=== PATIENT | female | born 1955 | race Caucasian/White ===

== ENCOUNTER 2016-07-25 18:57 | Emergency (ER) | payer MEDICARE ==
[~2016-07-25] VITALS: Ht 160 cm; Wt 95.3 kg
[~2016-07-25 18:57] MED LIST: ATARAX25 MG PO; CIPROFLOXACIN500 MG PO; HYDRALAZINE HCL25 MG PO; KEFLEX500 MG PO; MACROBID100 M1 PO; METOPROLOL SR25 MG PO; RENAL MULTIVITA1 TAB PO; SIMVASTATIN10 MG PO
[2016-07-25] MEDS ORDERED: METOPROLOL TART50 M1 PO (19:36)
[2016-07-25] MEDS ORDERED: PANTOPRAZOLE SO40 MG PO (19:37)
[2016-07-25] MEDS ORDERED: CLONAZEPAM0.5 M2 PO (19:37)
[2016-07-25] MEDS ORDERED: TRAMADOL HCL50 MG PO (19:37)
[2016-07-25] MEDS ORDERED: BUMETANIDE2 MG PO (19:37)
[2016-07-25] MEDS ORDERED: REQUIP0.5 MG PO (19:38)
[2016-07-25] MEDS ORDERED: EFFIENT10 M1 PO (19:38)
[2016-07-25] MEDS ORDERED: ONDANSETRON HYDR4 MG PO (19:39)
[2016-07-25] MEDS ORDERED: SENSIPAR90 MG PO (19:39)
[2016-07-25] MEDS ORDERED: RENVELA800 MG PO (19:39)
[2016-07-25] MEDS ORDERED: PROAIR HFA8.5 GM INH (19:40)
[2016-07-25] MEDS ORDERED: ENALAPRIL MALEA20 MG PO (19:40)
[2016-07-25] MEDS ORDERED: RENAL CAPS1 SGL PO (19:40)
[2016-07-25] MEDS ORDERED: ASPIRIN81 MG PO (19:42)
[2016-07-25] MEDS ORDERED: MAGOX 400400 MG PO (19:43)
[2016-07-25] MEDS ORDERED: CLARITIN10 MG PO (19:43)
[2016-07-25] MEDS ORDERED: MIRALAX17 GM/DOSE PO (19:44)
[2016-07-25] MEDS ORDERED: STOOL SOFTENER100 M3 PO (19:44)
[2016-07-25] MEDS ORDERED: CEPHALEXIN500 M1 PO (20:09)
[2016-07-25] MEDS ORDERED: HYDROCODONE BIT1 T11 PO (20:09)
== END 2016-07-25 20:15 | disposition home or self-care (01) ==
LOC: ED 18:57
DX: L02.212 Cutaneous abscess of back [any part, except buttock and flank] (principal); Z79.82 Long term (current) use of aspirin; Z79.899 Other long term (current) drug therapy; Z91.040 Latex allergy status

== ENCOUNTER 2016-08-14 22:13 | Inpatient (IN) | payer MEDICARE, MEDICAID ==
[~2016-08-14] VITALS: Ht 160 cm; Wt 97.7 kg
--- NOTE | ~2016-08-14 | CON ---
[place], [place] REPORT OF CONSULTATION NAME: [facility] UNIT #: [id number] ROOM: 520 DOCTOR: JUNITO GRIGSBYALLITASTEVE BIRTHDATE: [birth year] DOS: 08/15/2016 REQUESTING PHYSICIAN: Dr. Saldana. REASON FOR CONSULTATION: Chest pain, acute non-STEMI. ASSESSMENT: 1. Current presentation with chest pain, sharp, substernal, going on for the past few weeks. 2. Significant episode rated 10/10 brought the patient into the Emergency Room. 3. Pain is worse with lying flat and improves with bending, with leaning forward, no relation to activity. 4. Elevated cardiac enzymes, but normal CPK and MB. 5. Coronary artery disease, status post PTCA and stent placement this March with Dr. Yanes; no details available to me. 6. Obesity with high probability of obstructive sleep apnea. 7. Hypertension. 8. Hyperlipidemia. 9. End-stage renal disease, on dialysis. 10. Previous history of tobacco abuse. PLAN: 1. Continue to cycle cardiac enzymes including CPK-MB and troponin. 2. Stat echocardiogram for LV function and wall motion abnormalities. 3. Check sed rate and CRP. 4. Stop heparin drip. 5. Initiate Celebrex 200 mg 1 tablet p.o. b.i.d. 6. We will plan to do a stress test hopefully on Friday should the patient continue to be symptom free and no hemodynamic compromise. 7. Early followup in clinic here in [place] within 1-2 weeks as an outpatient upon discharge. HISTORY OF PRESENT ILLNESS: The patient is a pleasant 60-year-old female unknown to our practice, presented to the Emergency Room with complaint of severe sharp chest pain, substernal, that occurred at rest, reached 10/10. The pain is without any significant radiation. Does get worse with lying flat and improves with bending forward and leaning on a couple of pillows. Also, the patient noticed like this pain has no relation to activity. It occurs mainly when the patient goes to bed. There has been progression of these complaints over the past few weeks. Never had any symptomatic palpitation or associated dizziness, lightheadedness, or near syncope. The patient underwent a cardiac catheterization with stent placement with Dr. Yanes in March with cardiac complaint that was completely different than what she had now. No fever, no chills, no night sweats. Occasional nausea, but no vomiting. The patient maintained good appetite and no significant weight change. No PND, orthopnea or pedal edema. The patient had been on schedule for her hemodialysis. PAST MEDICAL HISTORY: As detailed in my assessment. SOCIAL HISTORY: The patient denies any current tobacco, alcohol or illicit drug [place], [place] REPORT OF CONSULTATION NAME: [facility] UNIT #: [id number] ROOM: [facility] DOCTOR: EUGENE WILD MD BIRTHDATE: [birth year] abuse. The patient quit smoking 7 years ago. FAMILY HISTORY: The patient's father at age 78 of chronic renal failure. Her mother at age 75 of cancer. She has one brother and two sisters with no early family history of heart disease. CURRENT MEDICATIONS: Requip, vitamin B, Toradol, Zocor, Effient, Lopressor, mag oxide, Claritin, lisinopril, Colace, Klonopin, Bumex, aspirin, Renagel, Protonix, MiraLax, Zofran, Restoril, magnesium, [place]. ALLERGIES: THE PATIENT IS ALLERGIC TO LATEX AND TAPE. REVIEW OF SYSTEMS: Currently, the patient denies any headache, diplopia or blurry vision. No fever, no chills, no night sweats. No abdominal pain, no bright red blood per rectum or tarry stools. The patient admits to joint pain, but no muscular pain. No anxiety, but depression. No polyuria, no polydipsia, no skin rash. Review of all other systems has been negative. PHYSICAL EXAMINATION: GENERAL: The patient is alert and oriented x 3, cooperative, pleasant. VITAL SIGNS: Blood pressure 117/50, heart rate 69, respiratory rate of 14, temperature 97.8. HEENT: Extraocular muscles intact. Pupils equal, round, reactive to light. Conjunctivae, no pallor. Throat, no petechiae. NECK: Good upstroke. Unable to appreciate any bruit. No lymphadenopathy, no thyromegaly. HEART: S1, S2, distant heart sounds. Unable to appreciate any rub, no retrosternal heave. CHEST AND BACK: No deformities. LUNGS: Clear to auscultation. Good air movement. No wheezing, rales. ABDOMEN: Morbidly obese, soft, nontender. Present bowel sounds. No masses, no bruits. EXTREMITIES: Lower extremities, no edema with faint distal pulses. NEUROLOGIC: Grossly nonfocal. SKIN: No significant rash. LABORATORY DATA: White count 5.1, hemoglobin 10.4. Initial troponin 1.2, subsequent is 0.9, subsequent 0.7, then 0.56, then 0.51. [place], [place] REPORT OF CONSULTATION NAME: [facility] UNIT #: [id number] ROOM: [facility] DOCTOR: EUGENE WILD MD BIRTHDATE: [birth year] EUGENE WILD MD CM:CONSTR:REPORT OF CONSULTATION 1259 08/15/16 [id number] interface
--- NOTE | ~2016-08-14 | PR ---
[place], [place] PROGRESS NOTE NAME: [facility] UNIT #: [id number] ROOM: 520 DOCTOR: EUGENE WILD MD BIRTHDATE: [birth year] DOS: 08/16/2016 SUBJECTIVE: Ms. Heart is sitting up in bed, does not appear in distress. Denies any specific cardiac complaint. No symptomatic palpitation. She continued to be slightly short of breath with any minimal movement. OBJECTIVE: VITAL SIGNS: Blood pressure 104/56, heart rate 65, respiratory rate of 14, temperature 97.7. NECK: Good upstroke. No bruit. HEART: S1, S2 with holosystolic murmur at the left sternal border. CHEST AND BACK: No deformities. LUNGS: Clear to auscultation. No wheezing, no rales. ABDOMEN: Obese with no gross evidence of masses, present bowel sounds. EXTREMITIES: Lower extremities, mild ankle edema. LABORATORY DATA: White count 5.1, hemoglobin 10.4. Potassium 5.6, BUN 66, creatinine 11. CK is 94 and MB is 3.9, repeat 97 with MB of 3.3. Troponin 1.3 and repeat is 1.2 that appears to be increasing. ASSESSMENT AND PLAN: Presentation with complaint of chest pain that is quite classic, described as an elephant sitting on patient's chest, even though cardiac enzymes showed elevated troponin, but the CK-MB were not convincing as an ischemic event. Our workup most likely initiated toward acute pericarditis ____ sed rate and CRP were elevated. The patient's echocardiogram showed severe mitral regurgitation, which could be due to an ischemic event. For that, the patient was transferred to [facility] ____ [place] for cardiac catheterization. The patient missed her dialysis yesterday and she will probably need to ____ dialyzed today and this will be conveyed to this radiographer cardiac catheterization. Cardiac catheterization procedure was detailed to the patient with risks, benefits and alternatives. The patient agrees and willing to proceed. EUGENE WILD MD CM:PNTRANS 6 10 EUGENE WILD MD 08/16/[id number] interface
[2016-08-14 22:13] VITALS: BP 154/98
[~2016-08-14 22:13] MED LIST changes: +ASPIRIN81 MG PO; +BUMETANIDE2 MG PO; +CEPHALEXIN500 M1 PO; +CLARITIN10 MG PO; +CLONAZEPAM0.5 M2 PO; +EFFIENT10 M1 PO; +ENALAPRIL MALEA20 MG PO; +HYDROCODONE BIT1 T11 PO; +MAGOX 400400 MG PO; +METOPROLOL TART50 M1 PO; +MIRALAX17 GM/DOSE PO; +ONDANSETRON HYDR4 MG PO; +PANTOPRAZOLE SO40 MG PO; +PROAIR HFA8.5 GM INH; +RENAL CAPS1 SGL PO; +RENVELA800 MG PO; +REQUIP0.5 MG PO; +SENSIPAR90 MG PO; +STOOL SOFTENER100 M3 PO; +TRAMADOL HCL50 MG PO
[2016-08-14 22:40] VITALS: BP 134/76
[2016-08-14 22:42] LABS: BASO % 0.8 % (0.0-1.0); EOS # 0.2 10*3/uL (0.0-0.4); EOS % 4.4 % (1.0-4.0); HEMATOCRIT 34.6 % (37.0-47.0); HEMOGLOBIN 10.8 g/dl (12.0-16.0); LYMPH # 1.6 10*3/uL (1.3-4.4); LYMPH % 30.8 % (27.0-41.0); MEAN CELL VOLUME 107.8 fl (81.0-99.0); MEAN CORPUSCULAR HGB 33.6 pg (27.0-31.0); MEAN CORPUSCULAR HGB CONC 31.2 g/dl (33.0-37.0); MEAN PLATELET VOLUME 10.4 fl (9.6-12.3); MONO # 0.5 10*3/uL (0.1-1.0); MONO % 9.1 % (3.0-9.0); NEUT # 2.8 10*3/uL (2.3-7.9); NEUT % 54.7 % (47.0-73.0); PLATELET COUNT AUTOMATED 236 10*3/uL (130-400); RED BLOOD COUNT 3.21 10*6/uL (4.10-5.10); RED CELL DISTRI WIDTH 14.3 % (0-14.5); WHITE BLOOD COUNT 5.2 10*3/uL (4.8-10.8)
[2016-08-14 22:52] LABS: PROTHROMBIN TIME 10.7 SECONDS (9.0-12.4)
[2016-08-14 23:00] LABS: ALBUMIN 3.7 gm/dl (3.1-4.5); BILIRUBIN, TOTAL 0.3 mg/dl (0.2-1.0); MAGNESIUM 2.1 mg/dL (1.5-2.1); POTASSIUM 4.4 mmol/L (3.5-5.1); TOTAL PROTEIN 7.7 gm/dL (6.4-8.2)
[2016-08-14 23:04] LABS: TROPONIN I 0.516 ng/ml (<0.045)
[2016-08-14 23:22] VITALS: BP 132/58
[2016-08-14 23:46] VITALS: BP 124/50
[2016-08-15] VITALS (10 sets, daily range): BP systolic 90–140; BP diastolic 30–88
[2016-08-15 01:51] LABS: CKMB 1.5 ng/ml (0.5-3.6)
[2016-08-15 04:46] LABS: BASO % 0.4 % (0.0-1.0); EOS # 0.3 10*3/uL (0.0-0.4); EOS % 4.9 % (1.0-4.0); HEMOGLOBIN 10.4 g/dl (12.0-16.0); LYMPH # 1.9 10*3/uL (1.3-4.4); LYMPH % 37.6 % (27.0-41.0); MEAN CELL VOLUME 107.8 fl (81.0-99.0); MEAN CORPUSCULAR HGB CONC 31.5 g/dl (33.0-37.0); MEAN PLATELET VOLUME 9.8 fl (9.6-12.3); MONO # 0.4 10*3/uL (0.1-1.0); MONO % 8.6 % (3.0-9.0); NEUT # 2.5 10*3/uL (2.3-7.9); NEUT % 48.3 % (47.0-73.0); PLATELET COUNT AUTOMATED 202 10*3/uL (130-400); RED BLOOD COUNT 3.06 10*6/uL (4.10-5.10); WHITE BLOOD COUNT 5.1 10*3/uL (4.8-10.8)
[2016-08-15 04:56] LABS: PROTHROMBIN TIME 10.7 SECONDS (9.0-12.4)
[2016-08-15 05:00] LABS: CKMB 2.3 ng/ml (0.5-3.6)
[2016-08-15 05:02] LABS: HEMOGLOBIN A1c 5.2 % (4.8-5.6)
[2016-08-15 05:16] LABS: ALBUMIN 3.5 gm/dl (3.1-4.5); FREE T4 0.91 ng/dl (0.76-1.46); MAGNESIUM 2.3 mg/dL (1.5-2.1); PHOSPHOROUS 6.5 mg/dL (2.5-4.9); POTASSIUM 4.9 mmol/L (3.5-5.1); TOTAL PROTEIN 7.1 gm/dL (6.4-8.2)
[2016-08-15 05:20] LABS: BILIRUBIN, TOTAL 0.3 mg/dl (0.2-1.0); THYROID STIM HORMONE (HS) 1.59 uIU/ml (0.358-4.75)
[2016-08-15 07:04] LABS: VITAMIN D, 25-HYDROXY 30.1 ng/mL (30-100)
[2016-08-15 07:06] LABS: FOLIC ACID > 24.00 ng/mL (>5.38)
[2016-08-15 12:19] LABS: CKMB 3.3 ng/ml (0.5-3.6)
[2016-08-15 12:20] LABS: TROPONIN I 1.27 ng/ml (<0.045)
[2016-08-15 18:34] LABS: CKMB 3.9 ng/ml (0.5-3.6)
[2016-08-15 18:38] LABS: TROPONIN I 1.31 ng/ml (<0.045)
[2016-08-16] VITALS: BP 108/68
[2016-08-16 04:00] VITALS: BP 104/56
[2016-08-16 06:51] LABS: POTASSIUM 5.6 mmol/L (3.5-5.1)
[2016-08-16 08:00] VITALS: BP 148/52
== END 2016-08-16 07:35 | DRG 280 ==
LOC: ED 22:13 → EDHOLD 23:21 → 5E 23:21
PROVIDERS: Family Medicine; Internal Medicine; Internal Medicine Cardiovascular Disease; Student in an Organized Health Care Education/Training Program
DX: I21.4 Non-ST elevation (NSTEMI) myocardial infarction (principal); N18.6 End stage renal disease; I13.2 Hypertensive heart and chronic kidney disease with heart failure and with stage 5 chronic kidney disease, or end stage renal disease; D53.9 Nutritional anemia, unspecified; R73.9 Hyperglycemia, unspecified; I25.118 Atherosclerotic heart disease of native coronary artery with other forms of angina pectoris; E78.5 Hyperlipidemia, unspecified; G25.81 Restless legs syndrome; E66.01 Morbid (severe) obesity due to excess calories; I50.9 Heart failure, unspecified; I34.0 Nonrheumatic mitral (valve) insufficiency; Z99.2 Dependence on renal dialysis; Z68.31 Body mass index [BMI] 31.0-31.9, adult; Z95.818 Presence of other cardiac implants and grafts; Z98.51 Tubal ligation status; Z87.891 Personal history of nicotine dependence; Z84.1 Family history of disorders of kidney and ureter; Z80.9 Family history of malignant neoplasm, unspecified; Z91.040 Latex allergy status; Z91.048 Other nonmedicinal substance allergy status; Z79.82 Long term (current) use of aspirin; Z79.899 Other long term (current) drug therapy

== ENCOUNTER → 2016-10-03 | Outpatient (CLI) | payer MEDICARE, MEDICAID | END | disposition home or self-care (01) | LOC: RAD 11:03 | DX: J18.9 Pneumonia, unspecified organism (principal); I10 Essential (primary) hypertension; I51.7 Cardiomegaly; Z95.1 Presence of aortocoronary bypass graft; Z87.891 Personal history of nicotine dependence ==

== ENCOUNTER 2017-03-20 09:21 | Inpatient (IN) | payer MEDICARE, MEDICAID ==
[~2017-03-20] VITALS: Ht 160 cm; Wt 98.1 kg
[2017-03-20] VITALS (17 sets, daily range): BP systolic 95–132; BP diastolic 30–73
[~2017-03-20 09:21] MED LIST changes: +MAG-OXIDE200 MG PO; -MAGOX 400400 MG PO; -SIMVASTATIN10 MG PO; +ZOCOR20 MG PO
[2017-03-20 09:37] LABS: BASO % 0.4 % (0.0-1.0); EOS # 0.2 10*3/uL (0.0-0.4); EOS % 2.7 % (1.0-4.0); HEMATOCRIT 36.5 % (37.0-47.0); HEMOGLOBIN 11.6 g/dl (12.0-16.0); LYMPH % 18.9 % (27.0-41.0); MEAN CELL VOLUME 104.3 fl (81.0-99.0); MEAN CORPUSCULAR HGB 33.1 pg (27.0-31.0); MEAN CORPUSCULAR HGB CONC 31.8 g/dl (33.0-37.0); MEAN PLATELET VOLUME 9.6 fl (9.6-12.3); MONO # 0.3 10*3/uL (0.1-1.0); MONO % 5.3 % (3.0-9.0); NEUT % 72.3 % (47.0-73.0); PLATELET COUNT AUTOMATED 219 10*3/uL (130-400); WHITE BLOOD COUNT 5.5 10*3/uL (4.8-10.8)
[2017-03-20 10:06] LABS: ACT PARTIAL THROMBO TIME 23.9 SECONDS (20.8-31.5); INTERNATIONAL NORM RATIO 0.9 (2.0-3.5)
[2017-03-20 10:11] LABS: ALBUMIN 3.4 gm/dl (3.1-4.5); CREATININE 5.88 mg/dL (0.55-1.02); POTASSIUM 3.6 mmol/L (3.5-5.1); TOTAL PROTEIN 7.8 gm/dL (6.4-8.2)
[2017-03-20 10:15] LABS: TROPONIN I 0.668 ng/ml (<0.045)
[2017-03-20] MEDS ORDERED: PROTONIX40 MG PO (10:46)
[2017-03-20] MEDS ORDERED: TOPROL XL25 MG PO (11:36)
[2017-03-21] VITALS: BP 102/60
[2017-03-21 03:33] LABS: BASO % 0.5 % (0.0-1.0); EOS # 0.2 10*3/uL (0.0-0.4); EOS % 3.4 % (1.0-4.0); HEMOGLOBIN 9.7 g/dl (12.0-16.0); LYMPH # 1.5 10*3/uL (1.3-4.4); LYMPH % 26.3 % (27.0-41.0); MEAN CELL VOLUME 105.3 fl (81.0-99.0); MEAN CORPUSCULAR HGB CONC 32.3 g/dl (33.0-37.0); MEAN PLATELET VOLUME 9.7 fl (9.6-12.3); MONO # 0.4 10*3/uL (0.1-1.0); MONO % 7.6 % (3.0-9.0); NEUT # 3.4 10*3/uL (2.3-7.9); PLATELET COUNT AUTOMATED 189 10*3/uL (130-400); RED BLOOD COUNT 2.85 10*6/uL (4.10-5.10); WHITE BLOOD COUNT 5.5 10*3/uL (4.8-10.8)
[2017-03-21 03:47] LABS: ALBUMIN 2.9 gm/dl (3.1-4.5); CREATININE 8.55 mg/dL (0.55-1.02); PHOSPHOROUS 8.8 mg/dL (2.5-4.9); TOTAL PROTEIN 6.3 gm/dL (6.4-8.2)
[2017-03-21 03:48] LABS: POTASSIUM 4.6 mmol/L (3.5-5.1)
[2017-03-21 03:54] LABS: THYROID STIM HORMONE (HS) 0.881 uIU/ml (0.358-4.75)
[2017-03-21 04:00] VITALS: BP 102/60
[2017-03-21 07:46] LABS: VITAMIN D, 25-HYDROXY 18.8 ng/mL (30-100)
[2017-03-21 08:00] VITALS: BP 102/62
[2017-03-21 12:00] VITALS: BP 116/47
[2017-03-21 16:00] VITALS: BP 100/60
[2017-03-21 20:00] VITALS: BP 116/40
[2017-03-22] VITALS: BP 120/54
[2017-03-22 05:59] LABS: BASO % 0.5 % (0.0-1.0); EOS # 0.2 10*3/uL (0.0-0.4); EOS % 3.9 % (1.0-4.0); HEMATOCRIT 32.7 % (37.0-47.0); HEMOGLOBIN 10.3 g/dl (12.0-16.0); LYMPH # 1.5 10*3/uL (1.3-4.4); LYMPH % 24.8 % (27.0-41.0); MEAN CELL VOLUME 105.5 fl (81.0-99.0); MEAN CORPUSCULAR HGB 33.2 pg (27.0-31.0); MEAN CORPUSCULAR HGB CONC 31.5 g/dl (33.0-37.0); MEAN PLATELET VOLUME 10.3 fl (9.6-12.3); MONO # 0.4 10*3/uL (0.1-1.0); MONO % 6.9 % (3.0-9.0); NEUT # 3.8 10*3/uL (2.3-7.9); NEUT % 63.4 % (47.0-73.0); PLATELET COUNT AUTOMATED 226 10*3/uL (130-400); RED CELL DISTRI WIDTH 12.9 % (0-14.5); WHITE BLOOD COUNT 5.9 10*3/uL (4.8-10.8)
[2017-03-22 06:01] LABS: ALBUMIN 3.3 gm/dl (3.1-4.5); CREATININE 7.41 mg/dL (0.55-1.02); POTASSIUM 4.6 mmol/L (3.5-5.1)
[2017-03-22 06:02] LABS: PHOSPHOROUS 5.7 mg/dL (2.5-4.9)
[2017-03-22 08:00] VITALS: BP 98/50
[2017-03-22 16:00] VITALS: BP 127/44
[2017-03-22 20:00] VITALS: BP 118/38
[2017-03-23] VITALS: BP 119/38
[2017-03-23 08:00] VITALS: BP 143/46
[2017-03-23 12:00] VITALS: BP 127/45
== END 2017-03-23 17:09 | disposition home or self-care (01) | DRG 308 ==
LOC: ED 09:21 → ICCU 10:57 → EDHOLD 10:57 → ICCU 10:59 → 5E 03-21 14:39
PROVIDERS: Emergency Medicine; Internal Medicine Hospice and Palliative Medicine
PROC: 5A1D70Z Performance of Urinary Filtration, Intermittent, Less than 6 Hours Per Day (ICD-10-PCS; principal; 2017-03-21)
PROC: 5A1D70Z Performance of Urinary Filtration, Intermittent, Less than 6 Hours Per Day (ICD-10-PCS; 2017-03-22)
DX: I48.0 Paroxysmal atrial fibrillation (principal); N18.6 End stage renal disease; I13.2 Hypertensive heart and chronic kidney disease with heart failure and with stage 5 chronic kidney disease, or end stage renal disease; E87.8 Other disorders of electrolyte and fluid balance, not elsewhere classified; I25.810 Atherosclerosis of coronary artery bypass graft(s) without angina pectoris; I95.9 Hypotension, unspecified; I50.32 Chronic diastolic (congestive) heart failure; I70.1 Atherosclerosis of renal artery; N25.0 Renal osteodystrophy; R73.9 Hyperglycemia, unspecified; K21.9 Gastro-esophageal reflux disease without esophagitis; E66.9 Obesity, unspecified; E78.5 Hyperlipidemia, unspecified; D53.9 Nutritional anemia, unspecified; D72.810 Lymphocytopenia; Z60.2 Problems related to living alone; G25.81 Restless legs syndrome; Z95.2 Presence of prosthetic heart valve; Z91.19 Patient's noncompliance with other medical treatment and regimen; Z95.1 Presence of aortocoronary bypass graft; Z98.51 Tubal ligation status; Z99.2 Dependence on renal dialysis; Z91.040 Latex allergy status; Z91.09 Other allergy status, other than to drugs and biological substances; Z79.899 Other long term (current) drug therapy; I25.2 Old myocardial infarction; Z87.891 Personal history of nicotine dependence; Z95.5 Presence of coronary angioplasty implant and graft; Z80.9 Family history of malignant neoplasm, unspecified; Z82.49 Family history of ischemic heart disease and other diseases of the circulatory system; Z83.3 Family history of diabetes mellitus; Z84.1 Family history of disorders of kidney and ureter; Z82.3 Family history of stroke; Z68.38 Body mass index [BMI] 38.0-38.9, adult

== ENCOUNTER → 2017-05-14 | Outpatient (CLI) | payer MEDICARE, MEDICAID ==
[~2017-05-14] MED LIST changes: +PROTONIX40 MG PO; +TOPROL XL25 MG PO
== END | disposition home or self-care (01) ==
LOC: MAMMO 07:25
DX: Z12.31 Encounter for screening mammogram for malignant neoplasm of breast (principal)

== ENCOUNTER → 2018-08-14 | Outpatient (CLI) | payer MEDICARE ==
[~2018-08-14] MED LIST changes: +AVPAK AZITHROM250 M1 PO; +LYRICA25 M1 PO; +PREDNISONE50 MG PO; +REQUIP2 MG PO
== END | disposition home or self-care (01) ==
LOC: US 14:29
DX: E78.5 Hyperlipidemia, unspecified (principal); I12.0 Hypertensive chronic kidney disease with stage 5 chronic kidney disease or end stage renal disease; D63.1 Anemia in chronic kidney disease; N18.5 Chronic kidney disease, stage 5; I73.9 Peripheral vascular disease, unspecified; R40.0 Somnolence; R06.83 Snoring

== ENCOUNTER 2018-10-14 17:27 | Emergency (ER) | payer MEDICARE ==
[~2018-10-14] VITALS: Ht 160 cm; Wt 108.0 kg
[~2018-10-14 17:27] MED LIST changes: -AVPAK AZITHROM250 M1 PO; -PREDNISONE50 MG PO
[2018-10-14 18:20] LABS: HEMATOCRIT 36.7 % (37.0-47.0); HEMOGLOBIN 11.4 g/dl (12.0-16.0); MEAN CELL VOLUME 111.6 fl (81.0-99.0); MEAN CORPUSCULAR HGB 34.7 pg (27.0-31.0); MEAN CORPUSCULAR HGB CONC 31.1 g/dl (33.0-37.0); MEAN PLATELET VOLUME 9.7 fl (9.6-12.3); PLATELET COUNT AUTOMATED 202 10*3/uL (130-400); RED BLOOD COUNT 3.29 10*6/uL (4.10-5.10); RED CELL DISTRI WIDTH 14.6 % (0-14.5); WHITE BLOOD COUNT 4.9 10*3/uL (4.8-10.8)
[2018-10-14 18:37] LABS: ALBUMIN 3.7 gm/dl (3.1-4.5); CREATININE 8.57 mg/dL (0.55-1.02); PHOSPHOROUS 5.4 mg/dL (2.5-4.9); POTASSIUM 4.4 mmol/L (3.5-5.1); TOTAL PROTEIN 7.7 gm/dL (6.4-8.2)
[2018-10-14 19:09] LABS: BASOPHILS 1 % (0-1); PLATELET SUFFICIENCY NORMAL (NORMAL); TOTAL CELLS COUNTED 100 #CELLS
[2018-10-14] MEDS ORDERED: AVPAK AZITHROM250 M1 PO (22:31)
[2018-10-14] MEDS ORDERED: PREDNISONE50 MG PO (22:31)
== END 2018-10-14 23:00 | disposition home or self-care (01) ==
LOC: ED 17:27
PROVIDERS: Emergency Medicine
DX: J44.9 Chronic obstructive pulmonary disease, unspecified (principal); I25.10 Atherosclerotic heart disease of native coronary artery without angina pectoris; I13.2 Hypertensive heart and chronic kidney disease with heart failure and with stage 5 chronic kidney disease, or end stage renal disease; N18.6 End stage renal disease; I50.30 Unspecified diastolic (congestive) heart failure; K21.9 Gastro-esophageal reflux disease without esophagitis; E78.00 Pure hypercholesterolemia, unspecified; I48.91 Unspecified atrial fibrillation; I25.2 Old myocardial infarction; E66.9 Obesity, unspecified; Z95.1 Presence of aortocoronary bypass graft; Z95.5 Presence of coronary angioplasty implant and graft; Z87.891 Personal history of nicotine dependence; Z99.2 Dependence on renal dialysis; Z98.890 Other specified postprocedural states; Z98.51 Tubal ligation status; Z91.040 Latex allergy status; Z79.82 Long term (current) use of aspirin; Z79.899 Other long term (current) drug therapy

== ENCOUNTER 2019-08-17 12:01 | Inpatient (IN) | payer MEDICARE ==
[~2019-08-17] VITALS: Ht 160 cm; Wt 105.9 kg
[~2019-08-17 12:01] MED LIST changes: +AVPAK AZITHROM250 M1 PO; +CLINDAMYCIN HC300 MG PO; +PREDNISONE50 MG PO
[2019-08-17 12:05] VITALS: BP 115/51
[2019-08-17 13:26] LABS: HEMATOCRIT 33.6 % (37.0-47.0); MEAN CELL VOLUME 108.4 fl (81.0-99.0); MEAN CORPUSCULAR HGB 34.2 pg (27.0-31.0); MEAN CORPUSCULAR HGB CONC 31.5 g/dl (33.0-37.0); PLATELET COUNT AUTOMATED 304 10*3/uL (130-400); RED CELL DISTRI WIDTH 13.1 % (0-14.5); WHITE BLOOD COUNT 7.6 10*3/uL (4.8-10.8)
[2019-08-17 13:36] LABS: ACT PARTIAL THROMBO TIME 27.5 SECONDS (20.0-32.1); INTERNATIONAL NORM RATIO 1.1 (2.0-3.5)
[2019-08-17 13:41] LABS: ALBUMIN 2.8 gm/dl (3.1-4.5); ALKALINE PHOSPHATASE 58 U/L (45-117); BUN 36 mg/dl (7-24); CHLORIDE 98 mmol/L (98-107); CREATININE 8.05 mg/dL (0.55-1.02); LIPASE 118 U/L (73-393); POTASSIUM 4.6 mmol/L (3.5-5.1); SGOT/AST 16 IU/L (3-35); SGPT/ALT 17 U/L (12-78); SODIUM 135 mmol/L (136-145); TOTAL PROTEIN 7.9 gm/dL (6.4-8.2)
[2019-08-17 13:42] LABS: TROPONIN I < 0.015 ng/ml (<0.045)
[2019-08-17 13:49] LABS: BASOPHILS 1 % (0-1); TOTAL CELLS COUNTED 100 #CELLS
[2019-08-17 13:50] LABS: PLATELET SUFFICIENCY NORMAL (NORMAL); POLYCHROMASIA SLIGHT; ROULEAUX SLIGHT
[2019-08-17 14:00] VITALS: BP 127/39
--- NOTE | 2019-08-17 14:10 | NUR ---
Time: 1409 A 63 year old FEMALE admitted to 5E under services of BRADLEY BHANDARI DO. Pt. arrived via ambulatory from ER. Chief complaint: CELLULITIS OF L GREAT TOE. NATE QUIÑONES
--- NOTE | 2019-08-17 14:44 | NUR ---
PODIATRY RESIDENT NOTIFIED OF CONSULT
--- NOTE | 2019-08-17 14:44 | NUR ---
DR. SAHU'S OFFICE NOTIFIED OF CONSULT.
--- NOTE | 2019-08-17 15:30 | NUR ---
PT SITTING UP IN BED. AWAKE, ALERT AND ORIENTED. NO STATED COMPLAINTS AT THIS TIME. DENIES PAIN. NO SOB NOTED ON ROOM AIR. RESPIRATIONS ARE EASY AND REGULAR. PT IS ABLE TO REPOSITION SELF AND IS ENCOURAGED TO DO SO. BED IN LOWEST LOCKED POSITION AND CALL LIGHT WITHIN REACH. WILL CONTINUE TO MONITOR.
[2019-08-17 16:00] VITALS: BP 122/39
[2019-08-17] MEDS ORDERED: PROTONIX20 MG PO (16:38)
[2019-08-17] MEDS ORDERED: PRAMIPEXOLE0.125 MG PO (16:40)
[2019-08-17] MEDS ORDERED: MIDODRINE HCL5 M1 PO (16:42)
--- NOTE | 2019-08-17 17:05 | NUR ---
DR. KING'S ANSWERING SERVICE NOTIFIED OF CONSULT.
[2019-08-17 20:00] VITALS: BP 123/44
--- NOTE | 2019-08-17 20:56 | NUR ---
TYLENOL GIVEN PER PATIENT REQUEST FOR COMPLAINTS OF LEFT FOOT PAIN RATED 7/10. WILL ASSESS EFFECTIVENESS.
--- NOTE | 2019-08-17 21:50 | NUR ---
TYLENOL EFFECTIVE PER PATIENT.
--- NOTE | 2019-08-17 23:15 | NUR ---
NORCO GIVEN FOR PAIN RATED 7/10 IN LEFT FOOT AND ZOFRAN GIVEN PER PATIENT REQUEST FOR COMPLAINTS OF NAUSEA WHEN TAKING NORCO. WILL ASSESS EFFECTIVENESS.
[2019-08-18] VITALS (9 sets, daily range): BP systolic 96–136; BP diastolic 32–75
--- NOTE | 2019-08-18 00:01 | NUR ---
PATIENT STATED NORCO WAS EFFECTIVE. PAIN RATED 2/10. WILL CONTINUE TO MONITOR.
--- NOTE | 2019-08-18 03:23 | NUR ---
PATIENT PUT CALL LIGHT ON AND STATED HER PAIN WAS RATED 8/10 AND THAT HER LEFT FOOT WAS HURTING HER "PRETTY BAD". PATIENT REQUESTING NORCO. NORCO GIVEN. WILL ASSESS EFFECTIVENESS.
--- NOTE | 2019-08-18 05:21 | NUR ---
[facility] [id number] Please refer to the physician's history and physical for past medical history, comorbid conditions, and allergies. Diagnosis: FAILURE OF OUTPATIENT TREATMENT,CELLULITIS OF GREA Rm Score: 20,LOW OR NO RISK WOUND DESCRIPTIONS: Dressing intact to left foot. No strikethrough drainage noted at time of assessment. Patient stated this started 2 months ago with a little blister/callus. She states that the dialysis center has been checking the area. She states 2 weeks ago she went out shopping and came home and there was blood on her socks and the area keeps getting worse. She states she will follow with podiatry while she is here and when she is able to follow in the wound care center she will. Wound Care center card given to patient. Surface the patient is resting on: Isoflex SKIN PREVENTION RECOMMENDATION: 1. Pressure redistribution support surface as appropriate 2. Elevate heels 3. Remove boots/TEDS every shift and reapply 4. Head of bed 30 degrees as tolerated 5. Assess nutrition and hydration 6. Manage moisture 7. Avoid the use of containment devices while in bed 8. Use absorptive products on surfaces limit layers of linens on bed 9. Turn and reposition every 1-2 hours in bed and every 1 hour in chair as tolerated 10. Weight shifts every 15 minutes while up in chair 11. Offloading with pillows or device to keep heels elevated off bed 12. Monitor skin at least every shift 13. Inspect under medical devices twice a day WOUND TREATMENT RECOMMENDATIONS: Podiatry is already on consult and will mamanage dressing changes. Id is aleady on consult.
[2019-08-18 06:33] LABS: HEMATOCRIT 31.4 % (37.0-47.0); MEAN CELL VOLUME 108.3 fl (81.0-99.0); MEAN CORPUSCULAR HGB 33.8 pg (27.0-31.0); MEAN CORPUSCULAR HGB CONC 31.2 g/dl (33.0-37.0); MEAN PLATELET VOLUME 9.6 fl (9.6-12.3); PLATELET COUNT AUTOMATED 305 10*3/uL (130-400); RED CELL DISTRI WIDTH 12.9 % (0-14.5); WHITE BLOOD COUNT 7.3 10*3/uL (4.8-10.8)
[2019-08-18 06:48] LABS: ALBUMIN 2.6 gm/dl (3.1-4.5); CREATININE 9.05 mg/dL (0.55-1.02); FREE T4 1.09 ng/dl (0.76-1.46); POTASSIUM 5.2 mmol/L (3.5-5.1); TOTAL PROTEIN 7.4 gm/dL (6.4-8.2)
[2019-08-18 06:53] LABS: THYROID STIM HORMONE (HS) 2.2 uIU/ml (0.358-4.75)
--- NOTE | 2019-08-18 06:57 | NUR ---
CRITICAL LAB CALLED, PHOSPHORUS 9.4. NOTIFIED DR COLON. PATIENT DOWN IN SURGERY FOR I&D. NOTIFIED HARSHA FROM SURGERY OF RESULT WELL. NO NEW ORDERS FROM DR COLON.
--- NOTE | 2019-08-18 07:15 | NUR ---
PHOTOS TAKEN OF LEFT FOOT I&D. ROMAIN SHEIKH RN
[2019-08-18 07:21] LABS: TOTAL CELLS COUNTED 100 #CELLS
[2019-08-18 07:22] LABS: PLATELET SUFFICIENCY NORMAL (NORMAL); POLYCHROMASIA SLIGHT
--- NOTE | 2019-08-18 07:48 | NUR ---
Spoke with Dr. Telles regarding wound care recommendations and she stated she will put them in today.
[2019-08-18 08:56] LABS: VITAMIN D, 25-HYDROXY 22.3 ng/mL (30-100)
--- NOTE | 2019-08-18 09:00 | NUR ---
Wildlife Veterinarian in to see patient. She is currently not in the room. Will follow up at a later time.
--- NOTE | 2019-08-18 13:03 | NUR ---
Occupational therapy evaluation received and chart reviewed. Patient had surgery this AM and is currently in dialysis. Will follow up with patient in the AM for completion of an OT evaluation. Thank you. Yaquelin Ovalles, OTR/L
--- NOTE | 2019-08-18 13:03 | NUR ---
PHYSICAL THERAPY Eval order received and chart reviewed, pt s/p surgery of LLE/foot this AM and is currently in dialysis treatment. Will follow in the AM full assessment. Therese Miller PT
--- NOTE | 2019-08-18 13:30 | NUR ---
PT RETURNED FROM DIALYSIS AT 1330. POOL TECHNICIAN REPORTED 2 LITERS OUT. VITALS WNL. PATIENT RESTING . MO COMPLAINTS
--- NOTE | 2019-08-18 15:13 | NUR ---
Riding Teacher in to talk to patient. Patient states lives at home alone with her family checking in on her. There are 0 steps in the home. Physician: Maryann Erazo [facility]: [facility]: [facility] on discharge Patient's level of ADLs: INDEPENDENT Patient has working utilities: yes DME: walker, cane x 2 Follow-up physician's appointment after d/c: will be made by the hospitalist nurse director upon discharge Does patient want to access PORTAL?: no Discharge plan discussed with patient. She lives at home alone with her family checking in on her. She is normally independent in her ADLs and ambulation. She does have a walker and 2 canes she can use. Discussed short term SNF and she refuses. Discussed home health care services and she is agreeable. When provided with a list of agencies she chose [facility] as she has had them in the past. Discussed home IV antibiotics if needed and she is agreeable and willing to learn how to administer them. When medically stable she will be discharged to home with [facility] services. She states either her daughter or granddaughter will provide transportation on discharge. FADY LINN
--- NOTE | 2019-08-18 20:36 | NUR ---
SPOKE WITH DR IVY REGARDING PATIENT'S BLOOD PRESSURE OF 100/34. PATIENT IS REQUESTING A NORCO DUE TO LEFT FOOT PAIN RATED 8/10. PATIENT HAD HD TODAY. PER DR IVY, RECHECK BLOOD PRESSURE BEFORE GIVING NORCO. IF BLOOD PRESSURE IS THE SAME OR HIGHER THAN 100/34 GO AHEAD AND GIVE THE NORCO AND THE RECHECK BLOOD PRESSURE AGAIN NO LATER THAN AN HOUR AFTER ADMINISTERING. IF BLOOD PRESSURE IS LOWER THAN LAST BLOOD PRESSURE OF 100/34 THEN DO NOT GIVE NORCO.
--- NOTE | 2019-08-18 20:45 | NUR ---
PATIENT HELPED TO RECLINER CHAIR AND PILLOW PLACED UNDER LEFT LEG. SHE STATED THIS HAS HELPED HER "A LOT" AND SHE NO LONGER WANTS THE [place]. CALL LIGHT WITHIN REACH. WILL CONTINUE TO MONITOR.
[2019-08-19] VITALS: BP 125/33
[2019-08-19 02:45] VITALS: BP 100/44
--- NOTE | 2019-08-19 02:46 | NUR ---
NORCO GIVEN PER PATIENT REQUEST FOR COMPLAINTS OF PAIN RATED 7/10 IN LEFT FOOT. WILL ASSESS EFFECTIVENESS.
--- NOTE | 2019-08-19 03:40 | NUR ---
NORCO EFFECTIVE PER PATIENT. PAIN RATED 2/10. WILL CONTINUE TO MONITOR.
--- NOTE | 2019-08-19 03:58 | NUR ---
24 HR chart check completed.
--- NOTE | 2019-08-19 04:23 | NUR ---
PATIENT SITTING UP IN THE CHAIR ON PHONE. NO SIGNS OR SYMPTOMS OF DISTRESS OR DISCOMFORT NOTED. PATIEN TALKATIVE. ZOSYN RUNNING. CALL LIGHT WITHIN REACH. WILL CONTINUE TO MONITOR.
[2019-08-19 08:00] VITALS: BP 106/42
--- NOTE | 2019-08-19 08:41 | NUR ---
PT STATES NO BOWEL MOVEMENT FOR 3 DAYS, PRN GIVEN. WILL MONITOR EFFECT. WOUND VAC ALARMING LOW PRESSURE, LINE CHECKED, NO KINKS IN LINE. WILL NOTIFY PODIATRY, IT WAS PER PODIATRY REQUEST FOR DRESSING TO REMAIN INTACT UNTIL SEEN BY THEM
--- NOTE | 2019-08-19 08:45 | NUR ---
Physical Therapy evaluation completed on 5th floor with full evaluation to follow. Recommend physical therapy per plan of care and SNF upon discharge. Did discuss rehab with patient given LLE NWB with wound vac, pt lives alone and drives herself to dialysis. Limited mobility at this time due to above please see eval. Thank you for this referral. Therese Miller PT
--- NOTE | 2019-08-19 08:45 | NUR ---
Occupational Therapy evaluation completed on five with full evaluation to follow. Recommend occupational therapy per plan of care and SNF upon discharge. Thank you for this referral. Yaquelin Ovalles OTR/L
--- NOTE | 2019-08-19 08:50 | NUR ---
PER PODIATRY, TURN WOUND VAC OFF THEN BACK ON AND SEE IF BEGINS TO FUNCTION. IF DOES NOT FUNCTION, REMOVE WOUND VAC AND PLACE WET TO DRY DRESSING
--- NOTE | 2019-08-19 09:00 | NUR ---
Postal Support Employee in to see patient. She is sitting up in her bedside chair without distress noted. Discussed short term rehab and she is agreeable. When provided with a list of facilities [facility]. She states she worked at [facility] and doesn't want to go there. connection worker notified.
--- NOTE | 2019-08-19 09:44 | NUR ---
PT STATES PAIN LOWER LEFT EXTREMITY, NORCO GIVEN. WILL MONITOR FOR PAIN
--- NOTE | 2019-08-19 10:08 | NUR ---
SPOKE TO PODIATRY RESIDENT, TOOK WOUND VAC DRESSING DOWN, BLACK SPONGE IS STUCK TO WOUND BED, ATTEMPTED TO SOAK WITH NS AND DRESSING WILL NOT COME OFF. PODIATRY RESIDENT TO COME UP AND CHANGE DRESSING/WOUND VAC. NOTIFIED CREDIT PRODUCTS OFFICER ARTURO NEED WOUND VAC SUPPLIES.
--- NOTE | 2019-08-19 10:55 | NUR ---
PT STATES PAIN MEDICATION EFFECTIVE AT THIS TIME
[2019-08-19 12:00] VITALS: BP 108/40
[2019-08-19 12:02] LABS: ACID FAST SPEC PROCESSING Tissue Grinding (.)
[2019-08-19 12:02] LABS: ACID FAST SPEC PROCESSING Tissue Grinding (.)
--- NOTE | 2019-08-19 13:02 | NUR ---
[facility] not [facility] any beds at this time. When provided with a list of other facilities she chose [facility]. diversified crops ii farmworker notified.
--- NOTE | 2019-08-19 13:26 | NUR ---
PATIENT COMPLAINING OF INCREASED PAIN IN LEFT GREAT TOE SINCE PODIATRY PLACED WOUND VAC BACK ON, PODIATRY RESIDENT AWARE. WILL DISCUSS WITH ATTENDING TODAY AND SEE PATIENT LATER TODAY. PER PODIATRY, THEY SPOKE WITH DR. MAYS AND THEY ARE WANTING TO TRANSFER [facility] FOR [facility]GIOGRAM
--- NOTE | 2019-08-19 13:34 | NUR ---
PT STATES PAIN LEFT GREAT TOE 10/10, IV DILAUDID GIVEN. PT UNDERSTANDS MEDICATION. WILL MONITOR FOR EFFECTIVENESS
--- NOTE | 2019-08-19 14:20 | NUR ---
PHYSICAL THERAPY Pt sitting up in chair wound vac now functioning after being redressed pt states pain LLE/foot 08/10 has been issued pain meds. STS min assist x 1 from recliner chair Stood with FWW x 1 for 1 minute with cg-min assist x 1 maintaining NWB LLE with occasional VQ's Performed partial SPT/lateral scoot chair-->bed (armrest removed from chair) then bed<-->bsc (with drop arm commode and HR on bed down) all with min assist x 1 for upper body and cga x 1 for LLE. Maintained NWB of LLE t/o activity with cga and cues. Tolerated well good progress remained in bed after session wound vac intact call velázquez in reach bed alarm engaged LLE elevated on pillow. Nsg updated Will follow per POC cont to recomend SNF at discharge Therese Miller PT
--- NOTE | 2019-08-19 14:30 | NUR ---
OT NOTE Patient was seen this date for occupational therapy treatment to maximize safety and independence with transfers. Patient was agreeable to OT treatment, reporting decreased LLE in comparison to being seen this AM. LLE wound vac remained in place/intact throughout treatment. Patient educated on stand-pivot transfers to maximize safety due to patient being unable at this time to perform mobility with the WW and LLE NWB. Patient verbalized a good understanding of proper technique for SPT/lateral transfer toward "good leg", LLE NWB, controlled movements, and calling for assistance. Attempted SPT transfer from standard recliner to drop-arm BSC; however, patient was unable to reach across to BSC due to the chair arm-rest being in the way. Patient completed a functional sit/stand Min Ax2 from standard recliner and returned to seated in a recliner with a removable arm-rest. The recliner R arm-rest was removed, patient performed a SPT/lateral scoot transfer towards her RLE onto the EOB with Min A from the upper body, a second person maintaing LLE NWB with CGA, and grasping the bedrail for support. Patient then performed a two additional SPT/lateral scoot from EOB <> BSC with Min Ax1 for upper body and CGA for the LLE with the bedrail and drop-arm rail removed. Patient verbalized a good understanding of the functionality of SPT/lateral scoot transfers and safety. Patient supine in bed, alarm on, all needs within reach at conclusion. Patient to continue with POC as able, rec D/c to SNF. Yaquelin Ovalles, OTR/L
[2019-08-19] MEDS ORDERED: VANCO 750750 MG/250 IV (15:32)
--- NOTE | 2019-08-19 15:52 | NUR ---
SPOKE TO A NURSE AT [facility] AND SHE STATED THAT PATIENT WOULD HAVE TO HAVE DISCHARGE PLANS SET UP PRIOR TO TRANSFER TO [facility] FOR PROCEDURE [place]. SPOKE TO PEÑA DIAZ IN CARE MANAGEMENT AND SHE IS STATING THAT THE PATIENT WOULD NEED A PRECERT PRIOR TO GOING TO [facility] AND WE WILL NOT HAVE THAT PRECERT BY TOMORROW
[2019-08-19 16:00] VITALS: BP 105/43
--- NOTE | 2019-08-19 16:57 | NUR ---
DR. MAYS RESCHEDULED PROCEDURE FOR FRIDAY, DR. SAEED/DAIN MADE AWARE.
--- NOTE | 2019-08-19 19:00 | NUR ---
ASSUMED CARE FOR THIS PT AT THIS TIME. PT RESTING QUIETLY IN BED W/EYES CLOSED. NO S/S OF DISTRESS NOTED. CALL LIGHT IN REACH.
[2019-08-19 20:00] VITALS: BP 110/48
--- NOTE | 2019-08-19 22:34 | NUR ---
PT C/O LLE PAIN 11/10. MEDICATED W/DILAUDID.
[2019-08-20] VITALS: BP 100/38
--- NOTE | 2019-08-20 03:46 | NUR ---
Upon discharge recommend patient to follow up for wound care in outpatient setting continue current wound care orders at discharging facility.
--- NOTE | 2019-08-20 06:24 | NUR ---
PT C/O LLE PAIN 12/10. PT WANTS WOUND VAC OFF. PT TEACHING GIVEN THAT THIS NURSE IS NOT PERMITTED TO REMOVE WOUND VAC. PT MEDICATE W/IVP DILAUDID 0.5MG.
[2019-08-20 06:50] LABS: HEMATOCRIT 33.1 % (37.0-47.0); MEAN CELL VOLUME 110.7 fl (81.0-99.0); MEAN CORPUSCULAR HGB 33.8 pg (27.0-31.0); MEAN CORPUSCULAR HGB CONC 30.5 g/dl (33.0-37.0); MEAN PLATELET VOLUME 9.8 fl (9.6-12.3); PLATELET COUNT AUTOMATED 326 10*3/uL (130-400); RED BLOOD COUNT 2.99 10*6/uL (4.10-5.10); RED CELL DISTRI WIDTH 13.2 % (0-14.5); WHITE BLOOD COUNT 8.2 10*3/uL (4.8-10.8)
--- NOTE | 2019-08-20 07:00 | NUR ---
PT RESTING QUIETLY IN BED W/EYES CLOSED. PRN DILAUDID EFFECTIVE FOR PAIN RELIEF.
[2019-08-20 07:17] LABS: PLATELET SUFFICIENCY NORMAL (NORMAL); POLYCHROMASIA SLIGHT; ROULEAUX SLIGHT; TOTAL CELLS COUNTED 100 #CELLS
[2019-08-20 07:33] LABS: CREATININE 8.7 mg/dL (0.55-1.02); POTASSIUM 5.4 mmol/L (3.5-5.1)
--- NOTE | 2019-08-20 08:01 | NUR ---
Spoke with Dr. Telles regarding clarification order for wound vac she states she will speak with the patient and update it as needed
--- NOTE | 2019-08-20 08:03 | NUR ---
OT NOTE Attempted to see pt this A.M. for OT session and upon arrival pt was out of the room for dialysis. Will check back at a later time/date and continue with POC as able. APOLINAR Anna/Elmer
--- NOTE | 2019-08-20 08:40 | NUR ---
[place] MACHINE OPERATOR HAS MESSAGE TO [facility] ABOUT PRECERT AND ACCEPTING THE PATIENT AFTER TRANSFER TO [place].
--- NOTE | 2019-08-20 09:48 | NUR ---
PATIENT MEDICATED WITH IVP DILAUDID FOR PAIN RATED 10/10 IN HER LEFT FOOT SHE STATES WHERE THE WOUND VAC IS PLACED. WILL CONTINUE TO MONITOR.
[2019-08-20 12:00] VITALS: BP 117/86
--- NOTE | 2019-08-20 12:00 | NUR ---
PT MEDICATED WITH PRN NORCO FOR C/O LEFT FOOT PAIN. PT RATES PAIN 10/10. WILL MONITOR.
--- NOTE | 2019-08-20 12:10 | NUR ---
PODIATRY RESIDENT NOTIFIED THAT PATIENT HAS RETURNED FROM DIALYSIS AND WOULD LIKE THE WOUND VAC REMOVED.
--- NOTE | 2019-08-20 12:45 | NUR ---
PRN NORCO EFFECTIVE. PT RESTING COMFORTABLY IN BED. WOUND VAC REMOVED PER PODIATRY.
--- NOTE | 2019-08-20 13:12 | NUR ---
PENDING ACCEPTANCE TO [facility]. WILL NEED COVID TEST RESULTS BEFORE ADMISSION TO [facility]. PRECERT WILL BE REQUIRED. CLEANER AND DYER COMPLETED HENS.
--- NOTE | 2019-08-20 13:45 | NUR ---
PHYSICAL THERAPY Patient seen this pm 1;1 for therapy visit and was sitting up on EOB upon therapist arrival. Patient identified by name / and presented with continuos 02-2.5L via TX. OT mobile unit assistant was also present for observation this session as patient reports mild 1-2 c/o of L foot pain. Patient stated she was happy that the wound vac was d/c earlier today and transfers sit to stand CGA. Patient needed v/c for improved safe hand placement and completed SPT to BSC with use of wh walker, CGA, demonstrating bouts of impulsive behaviour which contributes to increased unsteady standing balance. Patient educated on improved SPT technique then completed SPT to bedside chair CGA, demonstrating smoother pivot sequence. Patient also able to "bunny hop" backwards several steps and remained in bedside chair with call light, tray table and telephone. Will continue per POC as tolerated, total treatment time 14 minutes. Darion Tomlinson, AUTOMATION AND CONTROL ENGINEER
--- NOTE | 2019-08-20 14:05 | NUR ---
OT NOTE Pt seen this date for 1:1 therapy session for 20 min and was identified by name and . Upon arrival pt was supine in bed and gave consent for therapy and had 2.5LO2 via NC. Pt rated L foot pain at a 1-2/10. Pt transferred supine to sit EOB w SBA and requested a gown to cover her posterior. Gown was donned requiring Min A for mgmt. Pt stated she did not want to wear O2 for session and removed NC. O2 was read at 92% and heart rate 80 bpm. Pt educated on importance of wearing oxygen with functional mobility and agreed to wear NC for O2. Pt performed SPT from EOB to bedside commode maintaining NWB to LLE with 75% compliance w CGA and ww and multiple verbal cues for hand placement, safety and technique. Pt performed SPT from bedside commode to EOB with fair follow through for safety and tachnique. Pt then SPT from EOB to recliner with SBA w improved sucess and technique requiring a few verbal cues for safety. Upon descent pt impulsive and sat without proper handplacement and proximity to chair. At end of session pt reported pain at 4/10 and was seated in recliner w bedside table, and call light within reach. Continue w recommended D/C to SNF. Tavo Agudelo/APOLINAR Almanza/Elmer
--- NOTE | 2019-08-20 14:39 | NUR ---
OCCUPATIONAL THERAPY CO-SIGN I approve of the Occupational Therapy notes written above. FRANCISCO MENDOZA, OTR/L
--- NOTE | 2019-08-20 15:01 | NUR ---
PT MEDICATED WITH PRN NORCO FOR C/O LEFT FOOT PAIN. WILL MONITOR. PAIN RATED 7/10.
--- NOTE | 2019-08-20 15:24 | NUR ---
PHYSICAL THERAPY CO-SIGN I approve of the Physical Therapy notes written above. Therese Miller PT
--- NOTE | 2019-08-20 15:30 | NUR ---
MANUFACTURING SUPERVISOR SPOKE WITH SHIKHA. PATIENT WOULD NEED TO BE ADMITTED TO [facility] AFTER PROCEDURE AND HAVE THEM START PRECERT FOR HER TO BE ADMITTED TO THEIR FACILITY FROM THERE. MANUFACTURING SUPERVISOR NOTIFIED JOSEPH ELLIS.
--- NOTE | 2019-08-20 15:45 | NUR ---
PRN NORCO EFFECTIVE PER PT.
[2019-08-20 16:00] VITALS: BP 134/46
--- NOTE | 2019-08-20 17:13 | NUR ---
[facility] CALLED AND STATED PT IS TO BE THERE ON FRIDAY BY 10:30 FOR PROCEDURE BUT NOT TO SEND HER UNTIL WE HEAR FROM THEM REGARDING THE PLANS FOR AFTER. IF THEY HAVE NOT CALLED BY 9:15 AM FRIDAY PLEASE CALL THEM TO CONFIRM TRANSFER.
--- NOTE | 2019-08-20 19:55 | NUR ---
ASSUMED CARE FOR THIS PT AT THIS TIME. PT C/O LT FOOT PAIN 09/09. MEDICATED W/DILAUDID IVP. DRSG TO LT FOOT DRY/INTACT/ELEVATED ON PILLOWS. CALL LIGHT IN REACH.
[2019-08-20 20:00] VITALS: BP 97/35
--- NOTE | 2019-08-20 20:55 | NUR ---
PT RESTING QUIETLY IN BED W/EYES CLOSED. NO S/S OF DISTRESS NOTED. PRN PAIN MED EFFECTIVE.
[2019-08-21] VITALS: BP 102/40
--- NOTE | 2019-08-21 07:50 | NUR ---
IN PT ROOM TO COMPLETE ASSESSMENT. PT STATES SHE HAS SOME PAIN IN IN HER LEFT FOOT, BUT NOT ANY DIFFERENT THAN NORMAL. SHE HAS NOT HAD A BOWEL MOVEMENT SINCE 08/17/19 SO SHE WANTS SOMETHING TO HELP MOVE HER BOWELS, WILL BRING SOMETHING IN. CALL LIGHT WITHIN REACH, WILL CONTINUE TO MONITOR
[2019-08-21 08:00] VITALS: BP 108/50
--- NOTE | 2019-08-21 09:00 | NUR ---
RHONDA HOPE IN TO SEE PATIENT
--- NOTE | 2019-08-21 09:31 | NUR ---
PRN DULCOLAX GIVEN FOR COMPLAINTS OF CONSTIPATION, WILL MONITOR FOR EFFECTIVNESS. CALL LIGHT WITHIN REACH
--- NOTE | 2019-08-21 10:05 | NUR ---
PT GIVEN PRN DILAUDID IV FOR COMPLAINTS OF FOOT PAIN. WILL MONITOR FOR EFFECTIVNESS
--- NOTE | 2019-08-21 10:45 | NUR ---
IN TO REASSESS PT TO SEE IF PAIN MEDS WORKING, AND SHE IS SLEEPING. WILL CONTINUE TO MONITOR
[2019-08-21 12:00] VITALS: BP 112/48
[2019-08-21 16:00] VITALS: BP 128/54
--- NOTE | 2019-08-21 18:36 | NUR ---
PRN NORCO PO GIVEN AT THIS TIME FOR LEFT FOOT PAIN, WILL MONITOR FOR EFFECTIVENESS
--- NOTE | 2019-08-21 19:00 | NUR ---
ASSUMED CARE FOR THIS PT AT THIS TIME. NO C/O VOICED AT PRESENT. CALL LIGHT IN REACH.
[2019-08-21 20:00] VITALS: BP 125/45
--- NOTE | 2019-08-21 20:43 | NUR ---
DR. IVY NOTIFIED OF PT'S CONTINUED C/O CONSTIPATION AND DULCOLAX INEFFECTIVE. OK TO ADMINISTER MIRALAX.
--- NOTE | 2019-08-21 21:50 | NUR ---
PT MEDICATED W/MIRALAX FOR C/O CONSTIPATION.
[2019-08-22] VITALS: BP 125/45
--- NOTE | 2019-08-22 00:23 | NUR ---
PT MEDICATED W/DILAUDID FOR C/O LT FOOT PAIN. LLE ELEVATED ON PILLOWS.
--- NOTE | 2019-08-22 01:20 | NUR ---
PT RESTING QUIETLY IN BED W/EYES CLOSED. PRN DILAUDID EFFECTIVE.
--- NOTE | 2019-08-22 06:07 | NUR ---
NORCO GIVEN PER ORDER FOR COMPLAINTS OF LEFT FOOT PAIN. WILL MONITOR EFFECTIVENESS
[2019-08-22 06:25] LABS: BASO % 0.4 % (0.0-1.0); EOS # 0.2 10*3/uL (0.0-0.4); LYMPH # 1.1 10*3/uL (1.3-4.4); LYMPH % 15.3 % (27.0-41.0); MEAN CELL VOLUME 107.7 fl (81.0-99.0); MEAN CORPUSCULAR HGB 33.7 pg (27.0-31.0); MEAN CORPUSCULAR HGB CONC 31.3 g/dl (33.0-37.0); MEAN PLATELET VOLUME 9.5 fl (9.6-12.3); MONO # 0.5 10*3/uL (0.1-1.0); MONO % 6.1 % (3.0-9.0); NEUT # 5.5 10*3/uL (2.3-7.9); NEUT % 74.5 % (47.0-73.0); PLATELET COUNT AUTOMATED 267 10*3/uL (130-400); RED BLOOD COUNT 2.97 10*6/uL (4.10-5.10); RED CELL DISTRI WIDTH 13.2 % (0-14.5); WHITE BLOOD COUNT 7.3 10*3/uL (4.8-10.8)
[2019-08-22 06:54] LABS: ALBUMIN 2.4 gm/dl (3.1-4.5); CREATININE 8.66 mg/dL (0.55-1.02); POTASSIUM 4.7 mmol/L (3.5-5.1); TOTAL PROTEIN 7.4 gm/dL (6.4-8.2)
--- NOTE | 2019-08-22 07:50 | NUR ---
ASSESSMENT COMPLETE. PT WAS SLEEPING AND WOKE UP EASILY AND VOICES THAT SHE STILL IS FEELING CONSTIPATED. RESPIRATIONS ARE EASY AND REGULAR. CALL LIGHT WITHIN REACH, WILL CONTINUE TO MONITOR
--- NOTE | 2019-08-22 07:55 | NUR ---
PRN MIRALAX GIVEN FOR COMPLAINTS OF CONSTIPATION. WILL CONTINUE TO MONITOR
[2019-08-22 08:00] VITALS: BP 98/42
[2019-08-22 12:00] VITALS: BP 137/47
--- NOTE | 2019-08-22 14:51 | NUR ---
PRN NORCO GIVEN FOR LEFT FOOT PAIN. CALL LIGHT WITHIN REACH WILL MONITOR FOR EFFECTIVENESS
--- NOTE | 2019-08-22 15:31 | NUR ---
RELIEF OF PAIN AFTER MEDICATION PATIENT STATES. WILL CONTINUE TO MONITOR
[2019-08-22 16:00] VITALS: BP 126/47
[2019-08-22 20:00] VITALS: BP 96/35
--- NOTE | 2019-08-22 22:51 | NUR ---
PATIENT RESTING QUIETLY IN BED. NO COMPLAINTS AT THIS TIME. CALL LIGHT WITHIN REACH. SITTING IN CHAIR WATCHING TV. WILL CONTINUE TO MONITOR.
[2019-08-23] VITALS: BP 114/41
--- NOTE | 2019-08-23 04:03 | NUR ---
NORCO GIVEN PER PATIENT REQUEST FOR COMPLAINTS OF LEFT FOOT PAIN RATED 8/10. WILL ASSESS EFFECTIVENESS.
--- NOTE | 2019-08-23 05:00 | NUR ---
NORCO EFFECTIVE PER PATIENT. PATIENT RESTING QUIETLY IN BED WATCHING TV. WILL CONTINUE TO MONITOR.
--- NOTE | 2019-08-23 06:11 | NUR ---
PATIENT WATCHING TV. STATED LEFT FOOT WAS A 1/10. NOT IN PAIN AT THIS TIME. MORNING MEDS TAKEN AND BLOOD SUGAR CHECKED. RESULT WAS 97. CALL LIGHT WITHIN REACH. WILL CONTINUE TO MONITOR.
--- NOTE | 2019-08-23 06:45 | NUR ---
DIALYSIS NURSE CALLED. PER DR SAHU, GIVE PATIENT 1000 AM DOSE OF MIDODRINE AND THEN TAKE TO DIALYSIS.
--- NOTE | 2019-08-23 07:51 | NUR ---
OT NOTE Attempted to see pt this A.M. for OT session and upon arrival pt was out of the room for Dialysis. Will check back at a later time/date and continue with POC as able. APOLINAR Anna/Elmer
--- NOTE | 2019-08-23 07:52 | NUR ---
Spoke with Dr. Telles regarding dressing change orders. She stated to d/c wound vac order and she is currently getting wet to dry betadine dressing daily.
[2019-08-23 08:00] VITALS: BP 112/49
--- NOTE | 2019-08-23 09:10 | NUR ---
PATIENT IN DIALYSIS AT THIS TIME.
--- NOTE | 2019-08-23 12:21 | NUR ---
MEDICATED WITH PRN PO NORCO FOR LEFT FOOT PAIN.
--- NOTE | 2019-08-23 12:45 | NUR ---
PATIENT RETURNED FROM DIALYSIS, RESUMING MEDICATIONS AND DIET, SEE VITAL SIGNS AND ASSESSMENT FLOW FOR DETAILS.
--- NOTE | 2019-08-23 12:56 | NUR ---
DISCHARGE WOUND PHOTO OBTAINED IN PREPARATION FOR TRANSFER TO [facility] FOR REVASCULARIZATION OF BILATERAL LEGS.
--- NOTE | 2019-08-23 13:30 | NUR ---
OT NOTE Pt seen this date for 1:1 therapy session for 20 min and was identified by name and . Upon arrival pt supine in bed and agreeable to treatment. Pt stated pain was "not bad" and did not rate on a scale of 1-10. Pt completed supine to sit transfer to EOB w SBA and one verbal cue for technique. Pt maintained LLE NWB precautions through entire treatment. Pt completed sit to stand w use of ww and CGA w good technique and ambulated to recliner. Noted good technique and carryover for transfers and functional mobility from previous session with increased confidence. Pt completed stand to sit transfer into recliner w CGA, ww and good safety awareness. Pt took a 2 minute rest break before completing sit to stand w ww and CGA followed by ambulating to bathroom door. Upon arrival to the bathroom door quick onset of fatigue was noted and pt was able to self recognize resulting in returning to the recliner w CGA and ww. At end of session pt seated in recliner w call light in reach. Continue w recommended D/C plan to SNF. Tavo Agudelo/APOLINAR Almanza/Elmer
--- NOTE | 2019-08-23 13:45 | NUR ---
PHYSICAL THERAPY Patient seen this pm 1:1 for therapy visit and was resting supine in bed following lunch and presents with continuos IV treatment. Patient identified by name / and was joined by OT podiatrist assistant for observation only this session. Patient stated she had received dialysis this am and was feeling a little "sluggish" this afternoon. Patient is still NWB on L LE, tranfering supine to sit EOB with SBA x 1, then sit to stand CGA. use of wh walker standing support. Patient ambulated 8'x 1 to bedside chair, CGA, wh walker, demonstrating "bunny hop" ann with Fair+ standing balance. Patient stated she felt more confident this session and was eager to ambulate a second trial, CGA, wh walker, 15'x 1, demonstrating mild fatigue upon return to bedside chair. Patient was 100% compliant with NWB status L LE and would benefit from SNF to improve standing tolerance, improved dynamic balance and safe mobilty. Patient remained semi reclined in chair with B LE's elevated, call light, tray table and cell phone. Will continue per POC as tolerated, total treatment time 16 minutes. Darion Tomlinson, INJECTION MOULDING MACHINE OPERATOR
[2019-08-23 16:00] VITALS: BP 91/46
--- NOTE | 2019-08-23 17:27 | NUR ---
PATIENT DISCHARGED TO THE [facility] BY [facility]. REPORT CALLED TO RECEIVING NURSE AT THE HOSPITAL.
--- NOTE | 2019-08-24 07:48 | NUR ---
PHYSICAL THERAPY CO-SIGN I approve of the Physical Therapy notes written above. FADY BARKER PT,DPT
--- NOTE | 2019-08-24 07:51 | NUR ---
OCCUPATIONAL THERAPY CO-SIGN I approve of the Occupational Therapy notes written above. Cynthia Espinal OTR/L
--- NOTE | 2019-08-25 11:17 | NUR ---
Received call from Dr. Herbert's office regarding where patient was discharged to as patient was supposed to follow up with them. Explained patient was discharged to [facility] for vascular surgery.
== END 2019-08-23 19:04 | disposition short-term general hospital (02) | DRG 628 ==
LOC: ED 12:01 → EDHOLD 12:52 → 5E 12:52
PROVIDERS: Emergency Medicine; Internal Medicine; Podiatrist Foot & Ankle Surgery; Registered Nurse; ADMIT Internal Medicine
PROC: 5A1D70Z Performance of Urinary Filtration, Intermittent, Less than 6 Hours Per Day (ICD-10-PCS; principal; 2019-08-18)
PROC: 0QBR0ZZ Excision of Left Toe Phalanx, Open Approach (ICD-10-PCS; principal; 2019-08-18)
PROC: 5A1D70Z Performance of Urinary Filtration, Intermittent, Less than 6 Hours Per Day (ICD-10-PCS; 2019-08-20)
PROC: 5A1D70Z Performance of Urinary Filtration, Intermittent, Less than 6 Hours Per Day (ICD-10-PCS; 2019-08-23)
DX: E11.69 Type 2 diabetes mellitus with other specified complication (principal); E43 Unspecified severe protein-calorie malnutrition; M86.172 Other acute osteomyelitis, left ankle and foot; E87.1 Hypo-osmolality and hyponatremia; J44.1 Chronic obstructive pulmonary disease with (acute) exacerbation; Z68.41 Body mass index [BMI] 40.0-44.9, adult; I50.32 Chronic diastolic (congestive) heart failure; N18.6 End stage renal disease; L03.032 Cellulitis of left toe; I25.10 Atherosclerotic heart disease of native coronary artery without angina pectoris; E66.9 Obesity, unspecified; K21.9 Gastro-esophageal reflux disease without esophagitis; E11.65 Type 2 diabetes mellitus with hyperglycemia; E11.51 Type 2 diabetes mellitus with diabetic peripheral angiopathy without gangrene; I11.0 Hypertensive heart disease with heart failure; E78.2 Mixed hyperlipidemia; D63.8 Anemia in other chronic diseases classified elsewhere; G25.81 Restless legs syndrome; B96.20 Unspecified Escherichia coli [E. coli] as the cause of diseases classified elsewhere; E83.39 Other disorders of phosphorus metabolism; E11.621 Type 2 diabetes mellitus with foot ulcer; L97.529 Non-pressure chronic ulcer of other part of left foot with unspecified severity; B95.2 Enterococcus as the cause of diseases classified elsewhere; E66.01 Morbid (severe) obesity due to excess calories; I48.91 Unspecified atrial fibrillation; E11.42 Type 2 diabetes mellitus with diabetic polyneuropathy; E87.5 Hyperkalemia; Z20.828 Contact with and (suspected) exposure to other viral communicable diseases; Z66 Do not resuscitate; Z51.5 Encounter for palliative care; Z99.2 Dependence on renal dialysis; I25.2 Old myocardial infarction; Z91.81 History of falling; Z95.5 Presence of coronary angioplasty implant and graft; Z95.1 Presence of aortocoronary bypass graft; Z98.51 Tubal ligation status; Z95.2 Presence of prosthetic heart valve; Z87.891 Personal history of nicotine dependence; Z80.8 Family history of malignant neoplasm of other organs or systems; Z84.1 Family history of disorders of kidney and ureter; Z91.040 Latex allergy status; Z91.09 Other allergy status, other than to drugs and biological substances; Z79.82 Long term (current) use of aspirin; Z79.899 Other long term (current) drug therapy; Z83.3 Family history of diabetes mellitus; Z82.3 Family history of stroke; Z82.49 Family history of ischemic heart disease and other diseases of the circulatory system

== ENCOUNTER 2019-09-11 17:08 | Emergency (ER) | payer MEDICARE ==
[~2019-09-11 17:08] MED LIST changes: +MIDODRINE HCL5 M1 PO; +PRAMIPEXOLE0.125 MG PO; +PROTONIX20 MG PO; +VANCO 750750 MG/250 IV
== END 2019-09-11 22:25 | disposition home or self-care (01) ==
LOC: ED 17:08
DX: T82.898A Other specified complication of vascular prosthetic devices, implants and grafts, initial encounter (principal); Z88.8 Allergy status to other drugs, medicaments and biological substances; Z91.040 Latex allergy status; Z79.899 Other long term (current) drug therapy; Z79.82 Long term (current) use of aspirin; Y92.89 Other specified places as the place of occurrence of the external cause

== ENCOUNTER 2019-11-20 19:42 | Emergency (ER) | payer MEDICARE ==
[~2019-11-20] VITALS: Ht 160 cm; Wt 99.8 kg
[2019-11-20 20:31] LABS: BASO % 0.3 % (0.0-1.0); EOS # 0.3 10*3/uL (0.0-0.4); EOS % 4.7 % (1.0-4.0); HEMATOCRIT 38.5 % (37.0-47.0); LYMPH # 0.8 10*3/uL (1.3-4.4); LYMPH % 12.8 % (27.0-41.0); MEAN CELL VOLUME 103.8 fl (81.0-99.0); MEAN CORPUSCULAR HGB 31.8 pg (27.0-31.0); MEAN CORPUSCULAR HGB CONC 30.6 g/dl (33.0-37.0); MEAN PLATELET VOLUME 10.2 fl (9.6-12.3); MONO # 0.4 10*3/uL (0.1-1.0); MONO % 5.5 % (3.0-9.0); NEUT # 4.9 10*3/uL (2.3-7.9); NEUT % 76.5 % (47.0-73.0); PLATELET COUNT AUTOMATED 241 10*3/uL (130-400); RED BLOOD COUNT 3.71 10*6/uL (4.10-5.10); RED CELL DISTRI WIDTH 15.3 % (0-14.5); WHITE BLOOD COUNT 6.3 10*3/uL (4.8-10.8)
[2019-11-20 20:46] LABS: CREATININE 9.06 mg/dL (0.55-1.02); POTASSIUM 4.5 mmol/L (3.5-5.1)
[2019-11-20] MEDS ORDERED: KEFLEX500 M1 PO (22:16)
== END 2019-11-20 22:16 | disposition home or self-care (01) ==
LOC: ED 19:42
PROVIDERS: Emergency Medicine Emergency Medical Services
DX: L03.116 Cellulitis of left lower limb (principal); K21.9 Gastro-esophageal reflux disease without esophagitis; I13.2 Hypertensive heart and chronic kidney disease with heart failure and with stage 5 chronic kidney disease, or end stage renal disease; N18.6 End stage renal disease; I50.9 Heart failure, unspecified; I25.2 Old myocardial infarction; I25.10 Atherosclerotic heart disease of native coronary artery without angina pectoris; Z89.412 Acquired absence of left great toe; Z91.048 Other nonmedicinal substance allergy status; Z91.040 Latex allergy status; Z79.899 Other long term (current) drug therapy; Z79.2 Long term (current) use of antibiotics; Z79.82 Long term (current) use of aspirin; Z95.5 Presence of coronary angioplasty implant and graft; Z98.51 Tubal ligation status; Z87.891 Personal history of nicotine dependence; Z99.2 Dependence on renal dialysis

== ENCOUNTER → 2020-02-10 | Outpatient (CLI) | payer MEDICARE ==
[~2020-02-10] MED LIST changes: +24HOUR ALLERGY10 MG PO; +Bactroban Oint22 GM T; +DECADRON6 M1 PO; +KEFLEX500 M1 PO; +MIDODRINE HCL10 MG PO
== END | disposition home or self-care (01) ==
LOC: COVID19 11:50
PROVIDERS: ATTEND Nurse Practitioner Family
DX: U07.1 COVID-19 (principal)

== ENCOUNTER 2020-02-19 11:08 | Inpatient (IN) | payer MEDICARE ==
[2020-02-19] VITALS (7 sets, daily range): BP systolic 80–111; BP diastolic 27–62
[~2020-02-19] VITALS: Ht 162.5 cm; Wt 97.2 kg
[~2020-02-19 11:08] MED LIST changes: -24HOUR ALLERGY10 MG PO; -Bactroban Oint22 GM T; -DECADRON6 M1 PO; -MIDODRINE HCL10 MG PO
[2020-02-19 12:06] LABS: ABG BASE EXCESS 4.2 mmol/L (-2.0-2.0); ARTERIAL BLOOD GAS PH 7.449 (7.35-7.45)
--- NOTE | 2020-02-19 12:09 | NUR ---
AFTER SPEAKING WITH DR. WHITEHEAD PT HAS DECIDED TO CHANGE CODE STATUS FROM DNRCC TO DNRCC-A. PT WANTS TO INTUBATED IF SHE NEEDS IT TREATMENT FOR COVID-19.
[2020-02-19 12:22] LABS: HEMATOCRIT 37.2 % (37.0-47.0); MEAN CORPUSCULAR HGB 31.9 pg (27.0-31.0); MEAN CORPUSCULAR HGB CONC 30.9 g/dl (33.0-37.0); MEAN PLATELET VOLUME 11.7 fl (9.6-12.3); PLATELET COUNT AUTOMATED 236 10*3/uL (130-400); RED BLOOD COUNT 3.61 10*6/uL (4.10-5.10); RED CELL DISTRI WIDTH 15.7 % (0-14.5); WHITE BLOOD COUNT 5.5 10*3/uL (4.8-10.8)
[2020-02-19 12:44] LABS: ACT PARTIAL THROMBO TIME 29.6 SECONDS (20.0-32.1); INTERNATIONAL NORM RATIO 1.1 (2.0-3.5)
[2020-02-19 12:48] LABS: ALBUMIN 2.7 gm/dl (3.1-4.5); ALKALINE PHOSPHATASE 73 U/L (45-117); BUN 41 mg/dl (7-24); CHLORIDE 96 mmol/L (98-107); CPK 143 U/L (26-192); CREATININE 8.99 mg/dL (0.55-1.02); LDH 549 U/L (84-246); POTASSIUM 4.3 mmol/L (3.5-5.1); SGOT/AST 41 IU/L (3-35); SGPT/ALT 17 U/L (12-78); SODIUM 136 mmol/L (136-145); TOTAL PROTEIN 6.9 gm/dL (6.4-8.2)
[2020-02-19 12:55] LABS: TROPONIN I < 0.015 ng/ml (<0.045)
[2020-02-19 12:59] LABS: PLATELET SUFFICIENCY NORMAL (NORMAL); TOTAL CELLS COUNTED 100 #CELLS; TOXIC GRANULATION SLIGHT; VACUOLATION OF NEUTROPHILS SLIGHT
--- NOTE | 2020-02-19 15:04 | NUR ---
PT'S DAUGHTER KRISTOPHER UPDATED PER PT REQUEST,PT REMAINS W/O ACUTE DISTRESS NOTED AWAITING ICCU ADMISSION,SAFETY PRECAUTIONS INTACT AND CALL LIGHT WITHIN REACH,WILL CONTINUE TO MONITOR.
[2020-02-19] MEDS ORDERED: Bactroban Oint22 GM T (17:48)
[2020-02-19] MEDS ORDERED: 24HOUR ALLERGY10 MG PO (17:50)
[2020-02-19] MEDS ORDERED: RENVELA800 MG PO (18:18)
[2020-02-19] MEDS ORDERED: MIDODRINE HCL10 MG PO (18:21)
--- NOTE | 2020-02-19 20:00 | NUR ---
R ARM AV SHUNT WITH PALPABLE THRILL AND AUSCULTATED BRUIT
--- NOTE | 2020-02-19 21:15 | NUR ---
DR SANTIAGO NOTIFIED OF PTS BR, WANTS ME TO CALL RENAL, DR ZENG NOTIFIED AND PT STARTED ON MIDODRINE PER ORDER
[2020-02-19 22:09] LABS: ARTERIAL BLOOD GAS PH 7.379 (7.35-7.45)
--- NOTE | 2020-02-19 22:25 | NUR ---
TYLENOL 2 TABS GIVEN FOR C/O MILD BACK PAIN
--- NOTE | 2020-02-19 23:49 | NUR ---
PT SLEEPING, TYLENOL EFFECTIVE FOR BACKPAIN
[2020-02-20] VITALS: BP 103/37
--- NOTE | 2020-02-20 02:30 | NUR ---
HEPARIN SHUT OFF PER PROTOCOL
--- NOTE | 2020-02-20 02:57 | NUR ---
PT SAYS "NOT REALLY" IF HAD RELIEF FROM VICODIN,, HEELS YEVS ON PILLOWS
[2020-02-20 04:00] VITALS: BP 108/39
[2020-02-20 06:22] LABS: HEMATOCRIT 35.2 % (37.0-47.0); MEAN CORPUSCULAR HGB 32.5 pg (27.0-31.0); MEAN CORPUSCULAR HGB CONC 31.8 g/dl (33.0-37.0); MEAN PLATELET VOLUME 11.4 fl (9.6-12.3); PLATELET COUNT AUTOMATED 278 10*3/uL (130-400); RED BLOOD COUNT 3.45 10*6/uL (4.10-5.10); RED CELL DISTRI WIDTH 15.6 % (0-14.5); WHITE BLOOD COUNT 6.1 10*3/uL (4.8-10.8)
[2020-02-20 06:40] LABS: ALBUMIN 2.2 gm/dl (3.1-4.5); CREATININE 10.9 mg/dL (0.55-1.02)
[2020-02-20 07:15] LABS: PLATELET SUFFICIENCY NORMAL (NORMAL); TOTAL CELLS COUNTED 100 #CELLS
[2020-02-20 08:00] VITALS: BP 103/41
[2020-02-20 08:54] LABS: VITAMIN D, 25-HYDROXY 24.7 ng/mL (30-100)
--- NOTE | 2020-02-20 09:15 | NUR ---
PT RESTING COMFORTABLY ON 4 L NC. SPO2 94% ON 4 L. O2 DECREASED TO 4 L FROM 6 BY RN. SPO2 96% ON 6 L. ABG DRAWN ON 4 L NC WITH THE ASSISTANCE OF ULTRASOUND.
[2020-02-20 09:43] LABS: ABG BASE EXCESS 3.5 mmol/L (-2.0-2.0); ARTERIAL BLOOD GAS PH 7.385 (7.35-7.45)
[2020-02-20 09:44] LABS: FERRITIN 7802.1 ng/mL (10.0-291.0)
--- NOTE | 2020-02-20 11:30 | NUR ---
PT PLACED ON BIPAP AT THIS TIME. PT TOLERATING WELL. SYSTEM CHECKED AND FX'ING. RESPS REGULAR AND UNLABORED AT 22.
[2020-02-20 12:00] VITALS: BP 96/52
[2020-02-20 13:49] LABS: ABG BASE EXCESS 2.6 mmol/L (-2.0-2.0); ARTERIAL BLOOD GAS PH 7.378 (7.35-7.45)
[2020-02-20 16:00] VITALS: BP 111/42
--- NOTE | 2020-02-20 17:30 | NUR ---
DMITRIY NOYOLA CRNA PLACED ARTLINE IN RIGHT RADIAL ARTERY.
[2020-02-20 20:00] VITALS: BP 101/37
--- NOTE | 2020-02-20 21:31 | NUR ---
VICODIN GIVEN PER PATIENT REQUEST FOR LEG PAIN
--- NOTE | 2020-02-20 22:23 | NUR ---
Pt is still resting on BiPap 14/10 and FiO2 40%. Alarms on and audible.
[2020-02-21] VITALS: BP 116/38
--- NOTE | 2020-02-21 02:57 | NUR ---
Pt resting on Bipap. Alarms on and auidble.
[2020-02-21 06:57] LABS: ALBUMIN 2.1 gm/dl (3.1-4.5); CREATININE 12.1 mg/dL (0.55-1.02); POTASSIUM 5.5 mmol/L (3.5-5.1); TOTAL PROTEIN 6.8 gm/dL (6.4-8.2)
[2020-02-21 06:59] LABS: HEMATOCRIT 34.5 % (37.0-47.0); MEAN CELL VOLUME 100.9 fl (81.0-99.0); MEAN CORPUSCULAR HGB 32.2 pg (27.0-31.0); MEAN CORPUSCULAR HGB CONC 31.9 g/dl (33.0-37.0); MEAN PLATELET VOLUME 11.1 fl (9.6-12.3); PLATELET COUNT AUTOMATED 315 10*3/uL (130-400); RED BLOOD COUNT 3.42 10*6/uL (4.10-5.10); RED CELL DISTRI WIDTH 15.6 % (0-14.5); WHITE BLOOD COUNT 7.1 10*3/uL (4.8-10.8)
[2020-02-21 07:40] LABS: ABG BASE EXCESS -0.4 mmol/L (-2.0-2.0); ARTERIAL BLOOD GAS PH 7.358 (7.35-7.45)
--- NOTE | 2020-02-21 07:45 | NUR ---
DIALYSIS NURSE HERE TO PERFORM DIALYSIS TREATMENT ON PATIENT AT THIS TIME.
[2020-02-21 08:00] VITALS: BP 125/56
--- NOTE | 2020-02-21 08:08 | NUR ---
OT NOTE Occupational therapy order received when patient was admitted to 426-1. Patient has since been transferred to the [facility]-6. Will need new orders when medically appropriate. Thank you. Yaquelin Ovalles, OTR/L
--- NOTE | 2020-02-21 08:15 | NUR ---
BIPAP WAS PLACED ONTO PATIENT AT THIS TIME. TOLERATING WELL. SINCE EARLIER ABGS WERE DRAWN ON 4LNC, WE WILL OBTAIN NEW ABG AFTER PATIENT WEARS THE BIPAP FOR 2 HOURS.
--- NOTE | 2020-02-21 09:17 | NUR ---
PHYSICAL THERAPY PT order received when patient was admitted to [facility] Please send new PT orders when medically appropriate. Thank you. Noemi Laswon,PT,DPT
--- NOTE | 2020-02-21 09:18 | NUR ---
Aerial Installer spoke to patient's grandson via phone. Patient lives at home alone with a family member staying with her occasionally. There are 0 steps in the home. Physician: Maryann Erazo [facility]acy: [facility] Home health services: none Patient's level of ADLs: minimal assistance Patient has working utilities: yes DME: walker, cane x 2 Follow-up physician's appointment after d/c: will be made by the hospitalist nurse director upon discharge Does patient want to access PORTAL?: no Discharge plan discussed with patient's grandson. Attempted to reach patient's daughter, Rahel, but she is at work until 5pm. Patient lives at home alone with a family member staying with her occasionally. She is normally independent in her ADLs and ambulation but has a cane and a walker if needed. Discussed short term SNF and home health care services and the grandson doesn't think she will need anything at this time. CM will continue to follow for any discharge planning needs. She is HD MWF, chair time 6am, and she normally drives herself. When medically stable she will be discharged to home. Either her daughter or granddaughter will provide transportation on discharge. FADY LINN
[2020-02-21 09:45] LABS: ACT PARTIAL THROMBO TIME 75.4 SECONDS (20.0-32.1)
[2020-02-21 10:04] LABS: TOTAL CELLS COUNTED 100 #CELLS
[2020-02-21 10:05] LABS: PLATELET SUFFICIENCY NORMAL (NORMAL)
--- NOTE | 2020-02-21 10:10 | NUR ---
Patient is currently in dialysis. Polina ZHANG caring for patient states that she will notify this nurse when patient is out of dialysis.
--- NOTE | 2020-02-21 11:05 | NUR ---
DIALYSIS HAS BEEN COMPLETED, PER DIALYSIS NURSE STATES SHE TOOK OFF 1.7 LITER.
--- NOTE | 2020-02-21 11:10 | NUR ---
BIPAP ALARMING, PATIENT HAS TAKEN IT OFF AND IS CURRENTLY WEARING NO OXYGEN, O2 WAS APPLIED BY THIS RN AND PATIENT WAS EDUCATED ON NEED AND IMPORTANCE OF WEARING OXYGEN BY EITHER NC OR BIPAP. PATIENT VERBALIZED UNDERSTANDING. RN WILL CONTINUE TO MONITOR
--- NOTE | 2020-02-21 11:52 | NUR ---
DR SANTIAGO IN AT THIS TIME
[2020-02-21 12:00] VITALS: BP 116/39; BP 125/49
--- NOTE | 2020-02-21 13:55 | NUR ---
PHYSICAL THERAPY Physical Therapy evaluation completed on ICCU with full evaluation to follow. Moderate complexity PT evaluation per chart review and evaluation, [address]. Recommend physical therapy per plan of care and SNF vs Home with home health pending progression upon discharge. Thank you for this referral. Noemi Lawson,PT,DPT
--- NOTE | 2020-02-21 13:56 | NUR ---
Occupational Therapy evaluation completed on ICCU with full evaluation to follow. Recommend occupational therapy per plan of care and SNF vs home with HH with / supervision assist upon discharge. Thank you for this referral. NADEGE Syed/L
[2020-02-21 15:50] VITALS: BP 107/38
[2020-02-21 20:00] VITALS: BP 107/38; BP 119/41
--- NOTE | 2020-02-21 20:59 | NUR ---
PT. RESTING IN BED. ALERT AND ORIENTED x3. HEPARIN INFUSING ORDERED VIA RAN. ART IN R BRACHIAL LEVELED, ZEROED AND FLUSHED PER POLICY. LUNGS DIMINISHED BILAT, PULSE OX 96% ON 4L NC. ABDOMEN SOFTLY DISTENDED AND NORMO. TRACE BILAT LOWER EXTREMITY EDEMA NOTED. RESP. EASY AND REG, NO DISTRESS. CÉSAR PATTERSON RN
--- NOTE | 2020-02-21 21:54 | NUR ---
PT. TRANSFERRED TO [facility], ALL BELONGINGS SENT WITH PATIENT. CÉSAR PATTERSON RN
--- NOTE | 2020-02-21 22:00 | NUR ---
PATIENT RESTING IN BED WITH NO S/S OF DISTRESS. NO BLEEDING FROM PREVIOUS ART LINE SITE NOTED. PRESSURE DRESSING DRY AND INTACT. BED IN LOWEST POSITION, CALL LIGHT IN REACH
[2020-02-22] VITALS: BP 128/38
[2020-02-22 06:33] LABS: HEMATOCRIT 36.9 % (37.0-47.0); MEAN CELL VOLUME 101.9 fl (81.0-99.0); MEAN CORPUSCULAR HGB 31.8 pg (27.0-31.0); MEAN CORPUSCULAR HGB CONC 31.2 g/dl (33.0-37.0); MEAN PLATELET VOLUME 10.8 fl (9.6-12.3); PLATELET COUNT AUTOMATED 290 10*3/uL (130-400); RED BLOOD COUNT 3.62 10*6/uL (4.10-5.10); RED CELL DISTRI WIDTH 15.5 % (0-14.5); WHITE BLOOD COUNT 6.4 10*3/uL (4.8-10.8)
[2020-02-22 06:37] LABS: ALBUMIN 2.3 gm/dl (3.1-4.5); CREATININE 8.43 mg/dL (0.55-1.02); POTASSIUM 4.9 mmol/L (3.5-5.1); TOTAL PROTEIN 7.1 gm/dL (6.4-8.2)
[2020-02-22 06:59] LABS: ACT PARTIAL THROMBO TIME 47.6 SECONDS (20.0-32.1)
--- NOTE | 2020-02-22 07:00 | NUR ---
ARRIVED ON SHIFT, REPORT RECEIVED FROM OFFGOING NURSE, ASSUMED CARE OF PATIENT.
--- NOTE | 2020-02-22 07:52 | NUR ---
Shift chart check completed.
[2020-02-22 07:58] LABS: ATYPICAL LYMPHS 6 % (0-0); BURR CELLS FEW; PLATELET SUFFICIENCY NORMAL (NORMAL); TOTAL CELLS COUNTED 100 #CELLS
[2020-02-22 07:59] LABS: ROULEAUX SLIGHT
[2020-02-22 08:00] VITALS: BP 121/38
--- NOTE | 2020-02-22 08:47 | NUR ---
Attempted to reach patient via phone with no success. Will try again at a later time.
--- NOTE | 2020-02-22 11:55 | NUR ---
PHYSICAL THERAPY Patient seen this am 1:1 for therapy visit and was sitting up in bedside chair upon therapist arrival. Patient identified by name / and joined by OT assistant professor of religion for observation this session. Patient presented with continuos IV treatment, O2-6L via NC and recorded resting SpO2 97%, HR 71 bpm. Patient performed several sit to stand transfers at chair side, SBA, demonstrating slow initial rise, tolerating approx 1 minute static stand each trial. Patient ambulates without AD, LANDSCAPE DESIGNER/CGA, ad carlos in room with extended O2 cord, 15'x 2, demonstrating slow, cautious gait pattern. Patient Patient recorded SpO2 98%, HR 87 bpm following gait ex and returned to supine in bed with mild fatigue. Patient remained in bed with call light, tray table, telephone and bed alarm for safety. Will continue per POC as tolerated, total treatment time 18 minutes. Darion Tomlinson, DRAW IN HAND
[2020-02-22 12:00] VITALS: BP 107/59; BP 120/50
[2020-02-22 12:00] LABS: ABG BASE EXCESS 0.9 mmol/L (-2.0-2.0); ARTERIAL BLOOD GAS PH 7.356 (7.35-7.45)
--- NOTE | 2020-02-22 12:05 | NUR ---
OT NOTE Pt was seen this P.M. 1:1 for 25 minute OT session. Upon arrival pt was sitting upright in the recliner. Pt identified by name and and had no complaints at this time. Pt presented to therapy with continuous 6L-O2 high flow which she remained on throughout the entire session. Pt's resting SpO2 reading 94% and heart rate 67 bpm. Sit to stand completed from the chair level with SBA. Challenged pt's static standing tolerance needed for increased I in self care tasks and functional transfers. Pt was able to tolerate aprox 3 minutes before sitting due to fatigue. Throughout pt's SpO2 reading 97% and heart rate 71 bpm. Functional mobility completed around the room to the EOB with SBA, throughout SpO2 reading 98% and heart rate 87 bpm. Pt then completed bedside commode transfer. There she transferred on/off bedside commode with SBA and back to the EOB with SBA. While sitting EOB requested for pt to doff and maycol B socks and pt was able to complete idependent. Throughout entire session pt was educated on energy conservation techniques for increased I and enhanced safety. Pt voiced understanding. Pt then transferred back into bed sit to supine with SBA. There she was left with call light in hand, tray table in place, and phone in reach. Continue with POC as able. Throughout entire session airborne precautions were maintained. DIANA Anna
--- NOTE | 2020-02-22 12:07 | NUR ---
Attempted to reach patient via phone with no success. Will try again at a later time.
[2020-02-22 16:00] VITALS: BP 143/61
--- NOTE | 2020-02-22 16:00 | NUR ---
CALL PLACED TO HOSPITALIST LINE ADVISED THAT DR. KING WAS IN TO SEE PATIENT PATIENT HAVING INCREASED BLEEDING FROM HEMORRHOIDS, DR. GONCALVES ADVISED TO HOLD FOR NOW.
[2020-02-22 20:00] VITALS: BP 141/52
--- NOTE | 2020-02-22 20:51 | NUR ---
MEDICATED WITH PRN MORPHINE FOR C/O ABD PAIN
[2020-02-23] VITALS: BP 131/56
[2020-02-23 07:33] LABS: HEMATOCRIT 36.9 % (37.0-47.0); MEAN CELL VOLUME 103.1 fl (81.0-99.0); MEAN CORPUSCULAR HGB 32.7 pg (27.0-31.0); MEAN CORPUSCULAR HGB CONC 31.7 g/dl (33.0-37.0); MEAN PLATELET VOLUME 10.6 fl (9.6-12.3); PLATELET COUNT AUTOMATED 267 10*3/uL (130-400); RED BLOOD COUNT 3.58 10*6/uL (4.10-5.10); RED CELL DISTRI WIDTH 15.5 % (0-14.5); WHITE BLOOD COUNT 8.2 10*3/uL (4.8-10.8)
[2020-02-23 07:59] LABS: ALBUMIN 2.4 gm/dl (3.1-4.5); CREATININE 9.68 mg/dL (0.55-1.02); TOTAL PROTEIN 6.7 gm/dL (6.4-8.2)
[2020-02-23 08:00] VITALS: BP 147/72
--- NOTE | 2020-02-23 08:10 | NUR ---
PT OFF UNIT FOR DIALYSIS.
[2020-02-23 08:11] LABS: ACT PARTIAL THROMBO TIME 25.4 SECONDS (20.0-32.1)
--- NOTE | 2020-02-23 08:17 | NUR ---
Attempted to reach patient via phone with no success. Will try again at a later time.
[2020-02-23 08:26] LABS: PLATELET SUFFICIENCY NORMAL (NORMAL); POLYCHROMASIA SLIGHT; ROULEAUX SLIGHT; TOTAL CELLS COUNTED 100 #CELLS
[2020-02-23 08:31] LABS: ATYPICAL LYMPHS 1 % (0-0)
--- NOTE | 2020-02-23 10:50 | NUR ---
OT NOTE Attempted to see pt this A.M. for OT session and upon arrival pt was out of the room for dialysis. Will check back at a later time/date and continue with POC as able. APOLINAR Anna/Elmer
--- NOTE | 2020-02-23 11:02 | NUR ---
PHYSICAL THERAPY Patient was out of her room for Dialysis this am and not available for therapy at this time. Will continue per POC as able. Darion Tomlinson, PRESIDENT & CEO [employer]
[2020-02-23 12:00] VITALS: BP 110/40
--- NOTE | 2020-02-23 13:08 | NUR ---
PT REQUESTED AND WAS MEDICATED WITH DULCOLAX FOR C/O CONSTIPATION.
--- NOTE | 2020-02-23 14:05 | NUR ---
OT NOTE Pt was seen this P.M. 1:1 for 25 minute OT session. Upon arrival pt was supine in bed with no bed alarm activated. Pt presented to therapy with continuous 6L-O2 via high flow which she remained on throughout the entire session. Pt transferred supine to sit EOB with SBA. WHile sitting EOB pt donned B socks with supervision. Sit to stand completed from bed level with SBA followed by functional mobility to the bedside commode with SBA for safety. Pt transferred on/off bedside commode with SBA. Then challenged pt's dynamic standing balance while weight shifting, crossing midline, and reaching over all planes. Pt was able to maintain F+/G- standing balance throughout. Pt then returned to the EOB. While sitting EOB pt completed upper and lower body bathing DE. Pt was left sitting upright on the EOB with call light in hand, tray table in place, and phone in reach. Throughout entire session pt's SpO2 was within functional limits and airborne precautions maintained. Continue with POC as able. APOLINAR Anna/Elmer
--- NOTE | 2020-02-23 15:30 | NUR ---
SPO2 100% ON 6L PATIENT DECREASED TO 4L.
[2020-02-23 16:00] VITALS: BP 100/61
[2020-02-23 16:39] LABS: ABG BASE EXCESS -0.3 mmol/L (-2.0-2.0); ARTERIAL BLOOD GAS PH 7.35 (7.35-7.45)
--- NOTE | 2020-02-23 18:54 | NUR ---
SPOKE WITH DR GONCALVES RE: HEPARIN DRIP ON HOLD, RE: BLEEDING HEMORRHOID KEEP ON HOLD TILL TOMORROW. D DIMER ORDERED FOR AM. WILL REASSESS THEN.
[2020-02-23 20:00] VITALS: BP 141/63
--- NOTE | 2020-02-23 22:19 | NUR ---
MEDICATED WITH NORCO PER ORDER AND REQUEST.
--- NOTE | 2020-02-23 23:12 | NUR ---
MEDICATED WITH ONE TIME MIRALAX FOR C/O CONSTIPATION.
[2020-02-24] VITALS: BP 96/68
--- NOTE | 2020-02-24 01:29 | NUR ---
PREVIOUS MIRALAX EFFECTIVE
[2020-02-24 06:13] LABS: HEMATOCRIT 36.4 % (37.0-47.0); MEAN CELL VOLUME 102.8 fl (81.0-99.0); MEAN CORPUSCULAR HGB 32.5 pg (27.0-31.0); MEAN CORPUSCULAR HGB CONC 31.6 g/dl (33.0-37.0); MEAN PLATELET VOLUME 10.4 fl (9.6-12.3); PLATELET COUNT AUTOMATED 262 10*3/uL (130-400); RED BLOOD COUNT 3.54 10*6/uL (4.10-5.10); RED CELL DISTRI WIDTH 15.1 % (0-14.5); WHITE BLOOD COUNT 9.3 10*3/uL (4.8-10.8)
[2020-02-24 06:47] LABS: ALBUMIN 2.6 gm/dl (3.1-4.5); POTASSIUM 5.8 mmol/L (3.5-5.1)
[2020-02-24 06:50] LABS: CREATININE 9.04 mg/dL (0.55-1.02)
[2020-02-24 08:00] VITALS: BP 143/68
[2020-02-24 08:03] LABS: ATYPICAL LYMPHS 3 % (0-0); OVALOCYTES FEW; PLATELET SUFFICIENCY NORMAL (NORMAL); ROULEAUX SLIGHT; TOTAL CELLS COUNTED 100 #CELLS
[2020-02-24 08:38] LABS: ACT PARTIAL THROMBO TIME 27.5 SECONDS (20.0-32.1)
[2020-02-24 09:44] LABS: ABG BASE EXCESS 2.6 mmol/L (-2.0-2.0); ARTERIAL BLOOD GAS PH 7.364 (7.35-7.45)
--- NOTE | 2020-02-24 10:52 | NUR ---
Attempted to reach patient via phone with no success. CM will continue to follow for any discharge planning needs.
--- NOTE | 2020-02-24 11:50 | NUR ---
PHYSICAL THERAPY Patient seen this am 1:1 for therapy visit and was sitting up on EOB upon therapist arrival. Patient identified by name / and joined by OT assistant professor of anthropology for observation only this session. Patient presented with continuos O2-3L via NC, recording resting SpO2 97%, HR 60 bpm, prior to completing sit to stand tranfer SPORTS COMMENTATOR/CGA. Patient ambulates ad carlos in room 25'x 1, SPORTS COMMENTATOR/CGA, with extended O2 cord, demonstrating slow, cautious gait pattern, with several "wobbly" turns. Patient received v/c to improve B arm swing to promote increased stride, improved dynamic balance and ambulated additional 40'x 1, SBA, no LOB to bathroom and back to EOB sit with only mild fatigue. Patient recorded SpO2 93%, HR 80 bpm following gait ex and remained EOB sit with call light, tray table and cell phone. Will continue per POC as tolerated, total treatment time 17 minutes. Darion Tomlinson, COMMUNICATION CENTER COORDINATOR
[2020-02-24 12:00] VITALS: BP 140/47
--- NOTE | 2020-02-24 12:07 | NUR ---
OT NOTE Pt was seen this P.M. 1:1 for 20 minute OT session. Upon arrival pt was supine in bed. Pt identified by name and and had no complaints at this time. Pt presented to therapy with continuous 3L-O2 via NC which she remained on throughout the entire session. Pt transferred supine to sit EOB with supervision. While sitting EOB pt donned B socks with supervision while bringing leg up to knee level. Sit to stand completed from bed level with SBA. Challenged pt's dynamic standing balance while weight shifting, crossing midline, and reaching over all planes. Pt was able to maintain F- standing balance requiring UE support. Functional mobility was then completed to the bathroom with SBA and fair safety with the O2 line/management. There she transferred on/off standard commode with SBA followed by functional mobility back to the EOB with SBA. Pt was left sitting upright on the EOB with call ligh tin hand, tray table in place, and phone in reach. Continue with POC as able. Throughout entire session airborne precautions were maintained. APOLINAR Anna/Elmer
[2020-02-24 16:00] VITALS: BP 136/41
[2020-02-24 17:37] LABS: CREATININE 9.66 mg/dL (0.55-1.02)
--- NOTE | 2020-02-24 18:16 | NUR ---
CALLED DR PACHECO WITH BASIC RESULTS, ORDERS RECEIVED.
[2020-02-24 23:05] LABS: CREATININE 10.2 mg/dL (0.55-1.02); POTASSIUM 5.7 mmol/L (3.5-5.1)
[2020-02-25] VITALS: BP 129/63
--- NOTE | 2020-02-25 02:38 | NUR ---
24 HR chart check completed.
[2020-02-25 06:44] LABS: HEMATOCRIT 35.6 % (37.0-47.0); MEAN CELL VOLUME 101.7 fl (81.0-99.0); MEAN CORPUSCULAR HGB 32.3 pg (27.0-31.0); MEAN CORPUSCULAR HGB CONC 31.7 g/dl (33.0-37.0); MEAN PLATELET VOLUME 10.4 fl (9.6-12.3); PLATELET COUNT AUTOMATED 250 10*3/uL (130-400); RED CELL DISTRI WIDTH 15.2 % (0-14.5); WHITE BLOOD COUNT 11.4 10*3/uL (4.8-10.8)
[2020-02-25 07:16] LABS: ALBUMIN 2.6 gm/dl (3.1-4.5); POTASSIUM 4.8 mmol/L (3.5-5.1); TOTAL PROTEIN 6.6 gm/dL (6.4-8.2)
[2020-02-25 07:17] LABS: CREATININE 10.5 mg/dL (0.55-1.02)
--- NOTE | 2020-02-25 07:36 | NUR ---
24 HR chart check completed.
[2020-02-25 08:00] VITALS: BP 145/62
[2020-02-25 08:37] LABS: PLATELET SUFFICIENCY NORMAL (NORMAL); TOTAL CELLS COUNTED 100 #CELLS
[2020-02-25 08:38] LABS: OVALOCYTES FEW
[2020-02-25 12:00] VITALS: BP 142/56
--- NOTE | 2020-02-25 13:00 | NUR ---
MERLE ESCALONA WITH PATIENT.
[2020-02-25 16:00] VITALS: BP 138/65
--- NOTE | 2020-02-25 17:51 | NUR ---
DENIES ANY NEEDS. CALL LIGHT WITHIN REACH.
[2020-02-25 20:00] VITALS: BP 154/63
--- NOTE | 2020-02-25 20:00 | NUR ---
ATTEMPTED TO TAKE PATIENT OFF 1L NC PATIENT HAS BEEN 96% ON 1L. WHEN TAKEN OFF, PATIENT DROPPED TO 89%. PATIENT PLACED BACK ON 1L NC
--- NOTE | 2020-02-25 20:42 | NUR ---
24 HR chart check completed.
--- NOTE | 2020-02-25 21:21 | NUR ---
PRN MORPHINE GIVEN FOR PT COMPLAINTS OF 10/10 BACK AND LEG PAIN. CALL LIGHT WITHIN REACH, WILL MONITOR
--- NOTE | 2020-02-25 22:00 | NUR ---
PRN MEDICATION APPEARS EFFECTIVE, PT SLEEPING
[2020-02-26] VITALS: BP 165/70
--- NOTE | 2020-02-26 02:43 | NUR ---
PATIENT REMOVED SELF FROM BIPAP. STATES SHE DOES NOT WANT TO GO BACK ON. NASAL CANNULA ON PATIENT. 1L. PATIENT SATTING 97%.
--- NOTE | 2020-02-26 02:46 | NUR ---
PT OFF BIPAP AT THIS TIME.
--- NOTE | 2020-02-26 06:56 | NUR ---
PATIENT 100% ON 1L NC. REMOVED PATIENT FROM OXYGEN. RC REASSESS
[2020-02-26 07:22] LABS: HEMATOCRIT 32.6 % (37.0-47.0); MEAN CORPUSCULAR HGB 31.9 pg (27.0-31.0); MEAN CORPUSCULAR HGB CONC 31.9 g/dl (33.0-37.0); MEAN PLATELET VOLUME 10.7 fl (9.6-12.3); PLATELET COUNT AUTOMATED 323 10*3/uL (130-400); RED BLOOD COUNT 3.26 10*6/uL (4.10-5.10); RED CELL DISTRI WIDTH 15.1 % (0-14.5); WHITE BLOOD COUNT 15.3 10*3/uL (4.8-10.8)
[2020-02-26 07:30] LABS: ALBUMIN 2.6 gm/dl (3.1-4.5); CREATININE 11.7 mg/dL (0.55-1.02); POTASSIUM 4.8 mmol/L (3.5-5.1); TOTAL PROTEIN 6.4 gm/dL (6.4-8.2)
--- NOTE | 2020-02-26 07:35 | NUR ---
PATIENT MAINTAINING 92-93% ON ROOM AIR. NO DISTRESS NOTED. WILL CONTINUE TO MONITOR
[2020-02-26 08:00] VITALS: BP 123/94
--- NOTE | 2020-02-26 08:00 | NUR ---
Patient resting quietly with no c/o discomfort. Respirations easy and regular. Vital signs stable. No overt distress. ALEXANDRU MCGINNIS R
[2020-02-26 09:07] LABS: PLATELET SUFFICIENCY NORMAL (NORMAL); TOTAL CELLS COUNTED 100 #CELLS
[2020-02-26 12:00] VITALS: BP 128/59
--- NOTE | 2020-02-26 12:12 | NUR ---
Orders received for Home Health. Pt Provided with Choice List. [facility] First Choice. Referral Faxed to [facility] [phone]. Face 2 Face obtained from Dr Chambers. Faxed with Supporting Documentation to [facility]. Spoke with Information Assurance Analyst Nurse Tee at [facility] who states that she will call Gabriel. Provided with Regulatory Compliance Manager Phone Number.
--- NOTE | 2020-02-26 12:44 | NUR ---
PATIENT ASSESED FOR 02. SPO2 100% ON 2L, ON ROOM AIR SPO2 WAS 95%. SPO2 DECREASED TO 91-92% ON ROOM AIR WHILE AMBULATING HR REMAINED STABLE AT 75-83. RN NOTIFIEND [facility]
--- NOTE | 2020-02-26 15:15 | NUR ---
PT REFUSED DISCHARGE WOUND PHOTO.
[2020-02-26] MEDS ORDERED: DECADRON6 M1 PO (15:27)
--- NOTE | 2020-02-26 15:31 | NUR ---
off unit for dialysis
--- NOTE | 2020-02-26 19:02 | NUR ---
REPORT CALLED FROM DIALYSIS NURSE. 1 KILO TAKEN OFF. VSS.
--- NOTE | 2020-02-26 19:57 | NUR ---
Discharge instructions reviewed with patient/family. Patient receptive and verbalizes understanding. Follow-up care arranged. Written instructions given to patient/family. ALEXANDRU MCGINNIS
--- NOTE | 2020-02-28 07:35 | NUR ---
PHYSICAL THERAPY CO-SIGN I approve of the Physical Therapy notes written above. FADY BARKER PT, DPT
== END 2020-02-26 19:57 | disposition home or self-care (01) | DRG 871 ==
LOC: ED 11:08 → 4E 13:06 → EDHOLD 13:06 → ICCU 13:06 → 4E 13:30 → ICCU 14:34 → 4E 02-21 22:07
PROVIDERS: Emergency Medicine; Internal Medicine Critical Care Medicine; Internal Medicine Nephrology; Student in an Organized Health Care Education/Training Program; ADMIT Family Medicine; ATTEND Family Medicine
PROC: 5A09357 Assistance with Respiratory Ventilation, Less than 24 Consecutive Hours, Continuous Positive Airway Pressure (ICD-10-PCS; 2020-02-19)
PROC: 03HY32Z Insertion of Monitoring Device into Upper Artery, Percutaneous Approach (ICD-10-PCS; principal; 2020-02-20)
PROC: 5A0935A Assistance with Respiratory Ventilation, Less than 24 Consecutive Hours, High Flow/Velocity Cannula (ICD-10-PCS; 2020-02-20)
PROC: 5A09357 Assistance with Respiratory Ventilation, Less than 24 Consecutive Hours, Continuous Positive Airway Pressure (ICD-10-PCS; 2020-02-20)
PROC: 5A0935A Assistance with Respiratory Ventilation, Less than 24 Consecutive Hours, High Flow/Velocity Cannula (ICD-10-PCS; 2020-02-21)
PROC: 5A09357 Assistance with Respiratory Ventilation, Less than 24 Consecutive Hours, Continuous Positive Airway Pressure (ICD-10-PCS; 2020-02-21)
PROC: 5A1D70Z Performance of Urinary Filtration, Intermittent, Less than 6 Hours Per Day (ICD-10-PCS; 2020-02-21)
PROC: 5A09357 Assistance with Respiratory Ventilation, Less than 24 Consecutive Hours, Continuous Positive Airway Pressure (ICD-10-PCS; 2020-02-22)
PROC: 5A09357 Assistance with Respiratory Ventilation, Less than 24 Consecutive Hours, Continuous Positive Airway Pressure (ICD-10-PCS; 2020-02-23)
PROC: 5A1D70Z Performance of Urinary Filtration, Intermittent, Less than 6 Hours Per Day (ICD-10-PCS; 2020-02-23)
PROC: 5A09357 Assistance with Respiratory Ventilation, Less than 24 Consecutive Hours, Continuous Positive Airway Pressure (ICD-10-PCS; 2020-02-24)
PROC: 5A09357 Assistance with Respiratory Ventilation, Less than 24 Consecutive Hours, Continuous Positive Airway Pressure (ICD-10-PCS; 2020-02-25)
PROC: 5A09357 Assistance with Respiratory Ventilation, Less than 24 Consecutive Hours, Continuous Positive Airway Pressure (ICD-10-PCS; 2020-02-26)
PROC: 5A0935A Assistance with Respiratory Ventilation, Less than 24 Consecutive Hours, High Flow/Velocity Cannula (ICD-10-PCS; 2020-02-26)
PROC: 5A1D70Z Performance of Urinary Filtration, Intermittent, Less than 6 Hours Per Day (ICD-10-PCS; 2020-02-26)
DX: A41.89 Other specified sepsis (principal); U07.1 COVID-19; J96.00 Acute respiratory failure, unspecified whether with hypoxia or hypercapnia; E43 Unspecified severe protein-calorie malnutrition; N18.6 End stage renal disease; I50.33 Acute on chronic diastolic (congestive) heart failure; J12.89 Other viral pneumonia; I13.2 Hypertensive heart and chronic kidney disease with heart failure and with stage 5 chronic kidney disease, or end stage renal disease; D68.59 Other primary thrombophilia; E87.1 Hypo-osmolality and hyponatremia; I48.21 Permanent atrial fibrillation; I25.10 Atherosclerotic heart disease of native coronary artery without angina pectoris; I77.0 Arteriovenous fistula, acquired; K21.9 Gastro-esophageal reflux disease without esophagitis; E78.5 Hyperlipidemia, unspecified; E66.01 Morbid (severe) obesity due to excess calories; G25.81 Restless legs syndrome; D53.9 Nutritional anemia, unspecified; J43.9 Emphysema, unspecified; Z66 Do not resuscitate; I73.9 Peripheral vascular disease, unspecified; Z51.5 Encounter for palliative care; D63.8 Anemia in other chronic diseases classified elsewhere; I95.9 Hypotension, unspecified; Z88.8 Allergy status to other drugs, medicaments and biological substances; I25.2 Old myocardial infarction; Z91.040 Latex allergy status; Z95.1 Presence of aortocoronary bypass graft; Z98.51 Tubal ligation status; Z95.5 Presence of coronary angioplasty implant and graft; Z87.891 Personal history of nicotine dependence; Z84.1 Family history of disorders of kidney and ureter; Z68.37 Body mass index [BMI] 37.0-37.9, adult; Z95.2 Presence of prosthetic heart valve

== ENCOUNTER 2020-04-12 17:56 | Inpatient (IN) | payer MEDICARE ==
[~2020-04-12] VITALS: Ht 160 cm; Wt 95.5 kg
[~2020-04-12 17:56] MED LIST changes: +24HOUR ALLERGY10 MG PO; +Bactroban Oint22 GM T; +DECADRON6 M1 PO; +MIDODRINE HCL10 MG PO
[2020-04-12 18:02] VITALS: BP 119/50
[2020-04-12 19:04] LABS: BASO % 0.7 % (0.0-1.0); EOS # 0.2 10*3/uL (0.0-0.4); HEMATOCRIT 31.5 % (37.0-47.0); LYMPH # 0.7 10*3/uL (1.3-4.4); LYMPH % 11.7 % (27.0-41.0); MEAN CELL VOLUME 104.7 fl (81.0-99.0); MEAN CORPUSCULAR HGB 31.9 pg (27.0-31.0); MEAN CORPUSCULAR HGB CONC 30.5 g/dl (33.0-37.0); MEAN PLATELET VOLUME 9.4 fl (9.6-12.3); MONO # 0.3 10*3/uL (0.1-1.0); MONO % 5.6 % (3.0-9.0); NEUT # 4.7 10*3/uL (2.3-7.9); NEUT % 77.3 % (47.0-73.0); PLATELET COUNT AUTOMATED 378 10*3/uL (130-400); RED BLOOD COUNT 3.01 10*6/uL (4.10-5.10); RED CELL DISTRI WIDTH 17.2 % (0-14.5); WHITE BLOOD COUNT 6.1 10*3/uL (4.8-10.8)
[2020-04-12 19:24] LABS: ALBUMIN 2.5 gm/dl (3.1-4.5); CREATININE 5.79 mg/dL (0.55-1.02); TOTAL PROTEIN 7.3 gm/dL (6.4-8.2)
[2020-04-12 22:17] VITALS: BP 110/58
[2020-04-13] VITALS: BP 114/50
[2020-04-13] MEDS ORDERED: LYRICA25 M1 PO (00:41)
[2020-04-13 06:10] LABS: BASO % 0.6 % (0.0-1.0); EOS # 0.3 10*3/uL (0.0-0.4); EOS % 5.5 % (1.0-4.0); HEMATOCRIT 30.8 % (37.0-47.0); LYMPH # 0.9 10*3/uL (1.3-4.4); LYMPH % 18.7 % (27.0-41.0); MEAN CELL VOLUME 106.2 fl (81.0-99.0); MEAN CORPUSCULAR HGB 32.1 pg (27.0-31.0); MEAN CORPUSCULAR HGB CONC 30.2 g/dl (33.0-37.0); MEAN PLATELET VOLUME 9.7 fl (9.6-12.3); MONO # 0.4 10*3/uL (0.1-1.0); MONO % 8.1 % (3.0-9.0); NEUT # 3.1 10*3/uL (2.3-7.9); NEUT % 66.7 % (47.0-73.0); PLATELET COUNT AUTOMATED 354 10*3/uL (130-400); RED CELL DISTRI WIDTH 16.9 % (0-14.5); WHITE BLOOD COUNT 4.7 10*3/uL (4.8-10.8)
[2020-04-13 06:26] LABS: CREATININE 6.78 mg/dL (0.55-1.02); POTASSIUM 5.2 mmol/L (3.5-5.1)
[2020-04-13 07:02] LABS: ACT PARTIAL THROMBO TIME 30.5 SECONDS (20.0-32.1)
[2020-04-13 08:00] VITALS: BP 114/52
[2020-04-13 12:00] VITALS: BP 100/48
[2020-04-13 16:00] VITALS: BP 99/45
[2020-04-13 20:00] VITALS: BP 94/48
[2020-04-14] VITALS (8 sets, daily range): BP systolic 86–127; BP diastolic 27–82
[2020-04-14 06:13] LABS: BASO % 0.6 % (0.0-1.0); EOS # 0.3 10*3/uL (0.0-0.4); EOS % 5.4 % (1.0-4.0); LYMPH # 1.4 10*3/uL (1.3-4.4); LYMPH % 26.7 % (27.0-41.0); MEAN CELL VOLUME 107.1 fl (81.0-99.0); MEAN CORPUSCULAR HGB 31.8 pg (27.0-31.0); MEAN CORPUSCULAR HGB CONC 29.7 g/dl (33.0-37.0); MEAN PLATELET VOLUME 9.5 fl (9.6-12.3); MONO # 0.4 10*3/uL (0.1-1.0); MONO % 8.5 % (3.0-9.0); PLATELET COUNT AUTOMATED 373 10*3/uL (130-400); RED BLOOD COUNT 3.08 10*6/uL (4.10-5.10); RED CELL DISTRI WIDTH 16.7 % (0-14.5); WHITE BLOOD COUNT 5.2 10*3/uL (4.8-10.8)
[2020-04-14 06:15] LABS: CREATININE 8.91 mg/dL (0.55-1.02); POTASSIUM 5.3 mmol/L (3.5-5.1)
[2020-04-15] VITALS: BP 116/32
[2020-04-15 05:44] LABS: CREATININE 6.19 mg/dL (0.55-1.02); POTASSIUM 5.2 mmol/L (3.5-5.1)
[2020-04-15 06:15] LABS: BASO % 0.7 % (0.0-1.0); EOS # 0.3 10*3/uL (0.0-0.4); EOS % 5.9 % (1.0-4.0); HEMATOCRIT 33.5 % (37.0-47.0); LYMPH % 17.2 % (27.0-41.0); MEAN CELL VOLUME 107.4 fl (81.0-99.0); MEAN CORPUSCULAR HGB 31.4 pg (27.0-31.0); MEAN CORPUSCULAR HGB CONC 29.3 g/dl (33.0-37.0); MEAN PLATELET VOLUME 9.5 fl (9.6-12.3); MONO # 0.5 10*3/uL (0.1-1.0); MONO % 8.2 % (3.0-9.0); NEUT # 3.9 10*3/uL (2.3-7.9); NEUT % 67.1 % (47.0-73.0); PLATELET COUNT AUTOMATED 386 10*3/uL (130-400); RED BLOOD COUNT 3.12 10*6/uL (4.10-5.10); RED CELL DISTRI WIDTH 16.3 % (0-14.5); WHITE BLOOD COUNT 5.8 10*3/uL (4.8-10.8)
[2020-04-15 08:00] VITALS: BP 108/44
[2020-04-15 12:00] VITALS: BP 92/44
[2020-04-15 16:00] VITALS: BP 120/48
[2020-04-15 20:00] VITALS: BP 106/41
[2020-04-16] VITALS: BP 90/58
[2020-04-16 05:24] LABS: CREATININE 8.06 mg/dL (0.55-1.02); POTASSIUM 4.9 mmol/L (3.5-5.1)
[2020-04-16 06:12] LABS: BASO % 0.3 % (0.0-1.0); EOS # 0.3 10*3/uL (0.0-0.4); HEMATOCRIT 32.9 % (37.0-47.0); LYMPH # 1.3 10*3/uL (1.3-4.4); LYMPH % 21.8 % (27.0-41.0); MEAN CELL VOLUME 106.1 fl (81.0-99.0); MEAN CORPUSCULAR HGB 31.6 pg (27.0-31.0); MEAN CORPUSCULAR HGB CONC 29.8 g/dl (33.0-37.0); MEAN PLATELET VOLUME 9.3 fl (9.6-12.3); MONO # 0.4 10*3/uL (0.1-1.0); MONO % 7.1 % (3.0-9.0); NEUT # 3.8 10*3/uL (2.3-7.9); NEUT % 65.1 % (47.0-73.0); PLATELET COUNT AUTOMATED 357 10*3/uL (130-400); RED CELL DISTRI WIDTH 16.2 % (0-14.5); WHITE BLOOD COUNT 5.8 10*3/uL (4.8-10.8)
[2020-04-16 08:00] VITALS: BP 115/45
[2020-04-16 11:06] LABS: ACID FAST SPEC PROCESSING Tissue Grinding (.)
[2020-04-16 12:00] VITALS: BP 120/46
[2020-04-16 16:00] VITALS: BP 148/65
[2020-04-16 20:00] VITALS: BP 127/34
[2020-04-16 23:54] VITALS: BP 132/43
[2020-04-17 04:00] VITALS: BP 144/60
[2020-04-17 06:13] LABS: BASO # 0.1 10*3/uL (0.0-0.1); BASO % 0.8 % (0.0-1.0); EOS # 0.3 10*3/uL (0.0-0.4); EOS % 5.1 % (1.0-4.0); HEMATOCRIT 31.7 % (37.0-47.0); LYMPH # 0.9 10*3/uL (1.3-4.4); LYMPH % 14.2 % (27.0-41.0); MEAN CELL VOLUME 105.3 fl (81.0-99.0); MEAN CORPUSCULAR HGB 31.9 pg (27.0-31.0); MEAN CORPUSCULAR HGB CONC 30.3 g/dl (33.0-37.0); MEAN PLATELET VOLUME 9.7 fl (9.6-12.3); MONO # 0.3 10*3/uL (0.1-1.0); MONO % 5.5 % (3.0-9.0); NEUT # 4.5 10*3/uL (2.3-7.9); NEUT % 73.9 % (47.0-73.0); PLATELET COUNT AUTOMATED 316 10*3/uL (130-400); RED BLOOD COUNT 3.01 10*6/uL (4.10-5.10); RED CELL DISTRI WIDTH 15.9 % (0-14.5); WHITE BLOOD COUNT 6.1 10*3/uL (4.8-10.8)
[2020-04-17 06:31] LABS: POTASSIUM 5.4 mmol/L (3.5-5.1)
[2020-04-17 06:34] LABS: CREATININE 10.2 mg/dL (0.55-1.02)
[2020-04-17 08:00] VITALS: BP 113/43
[2020-04-17 16:00] VITALS: BP 110/48
[2020-04-17 20:00] VITALS: BP 93/62
[2020-04-18] VITALS: BP 105/37
[2020-04-18 02:41] VITALS: BP 70/40
[2020-04-18 06:07] LABS: BASO % 0.7 % (0.0-1.0); EOS # 0.3 10*3/uL (0.0-0.4); EOS % 5.3 % (1.0-4.0); LYMPH # 1.2 10*3/uL (1.3-4.4); LYMPH % 20.7 % (27.0-41.0); MEAN CELL VOLUME 106.1 fl (81.0-99.0); MEAN CORPUSCULAR HGB 31.8 pg (27.0-31.0); MEAN PLATELET VOLUME 9.6 fl (9.6-12.3); MONO # 0.4 10*3/uL (0.1-1.0); MONO % 7.6 % (3.0-9.0); NEUT # 3.7 10*3/uL (2.3-7.9); NEUT % 65.2 % (47.0-73.0); PLATELET COUNT AUTOMATED 310 10*3/uL (130-400); RED BLOOD COUNT 3.11 10*6/uL (4.10-5.10); WHITE BLOOD COUNT 5.7 10*3/uL (4.8-10.8)
[2020-04-18 06:31] LABS: CREATININE 6.06 mg/dL (0.55-1.02); POTASSIUM 4.6 mmol/L (3.5-5.1)
[2020-04-18 12:00] VITALS: BP 113/46
[2020-04-18 16:00] VITALS: BP 95/43
[2020-04-18 19:30] VITALS: BP 70/40
[2020-04-18 20:00] VITALS: BP 95/26
[2020-04-19] VITALS: BP 116/31
[2020-04-19 04:33] VITALS: BP 113/47
[2020-04-19] MEDS ORDERED: LEVOFLOXACIN750 M2 PO (10:51)
[2020-04-19] MEDS ORDERED: VANCO 1.51.5 GM/500 IV (10:52)
[2020-05-29 11:06] LABS: ACID FAST CULTURE Negative (.)
== END 2020-04-19 14:49 | DRG 463 ==
LOC: ED 17:56 → EDHOLD 23:25 → 4E 23:25
PROVIDERS: Family Medicine; Internal Medicine; Physician Assistant; Podiatrist; Student in an Organized Health Care Education/Training Program; ADMIT Family Medicine; ATTEND Family Medicine
PROC: 0QBP0ZX Excision of Left Metatarsal, Open Approach, Diagnostic (ICD-10-PCS; principal; 2020-04-14)
PROC: 0HRNXK3 Replacement of Left Foot Skin with Nonautologous Tissue Substitute, Full Thickness, External Approach (ICD-10-PCS; 2020-04-14)
PROC: 0QBR0ZX Excision of Left Toe Phalanx, Open Approach, Diagnostic (ICD-10-PCS; 2020-04-14)
PROC: 2W1MX6Z Compression of Left Lower Extremity using Pressure Dressing (ICD-10-PCS; 2020-04-14)
PROC: 2W3TX1Z Immobilization of Left Foot using Splint (ICD-10-PCS; 2020-04-14)
PROC: 5A1D70Z Performance of Urinary Filtration, Intermittent, Less than 6 Hours Per Day (ICD-10-PCS; 2020-04-14)
PROC: 5A1D70Z Performance of Urinary Filtration, Intermittent, Less than 6 Hours Per Day (ICD-10-PCS; 2020-04-17)
PROC: 5A1D70Z Performance of Urinary Filtration, Intermittent, Less than 6 Hours Per Day (ICD-10-PCS; 2020-04-19)
DX: M84.475A Pathological fracture, left foot, initial encounter for fracture (principal); N18.6 End stage renal disease; E43 Unspecified severe protein-calorie malnutrition; M86.8X7 Other osteomyelitis, ankle and foot; I50.32 Chronic diastolic (congestive) heart failure; I13.2 Hypertensive heart and chronic kidney disease with heart failure and with stage 5 chronic kidney disease, or end stage renal disease; B96.1 Klebsiella pneumoniae [K. pneumoniae] as the cause of diseases classified elsewhere; I73.9 Peripheral vascular disease, unspecified; L97.529 Non-pressure chronic ulcer of other part of left foot with unspecified severity; I25.10 Atherosclerotic heart disease of native coronary artery without angina pectoris; E78.5 Hyperlipidemia, unspecified; J44.9 Chronic obstructive pulmonary disease, unspecified; Z20.822 Contact with and (suspected) exposure to COVID-19; E66.01 Morbid (severe) obesity due to excess calories; I48.91 Unspecified atrial fibrillation; K21.9 Gastro-esophageal reflux disease without esophagitis; D53.9 Nutritional anemia, unspecified; G25.81 Restless legs syndrome; E87.5 Hyperkalemia; Z66 Do not resuscitate; E83.39 Other disorders of phosphorus metabolism; E83.41 Hypermagnesemia; Z91.040 Latex allergy status; Z95.1 Presence of aortocoronary bypass graft; Z79.899 Other long term (current) drug therapy; Z87.891 Personal history of nicotine dependence; Z80.0 Family history of malignant neoplasm of digestive organs; Z79.82 Long term (current) use of aspirin; Z68.36 Body mass index [BMI] 36.0-36.9, adult

== ENCOUNTER → 2020-06-30 | Outpatient (CLI) | payer MEDICARE ==
[~2020-06-30] MED LIST changes: +DOXYCYCLINE100 M3 PO; +LEVOFLOXACIN750 M2 PO; +VANCO 1.51.5 GM/500 IV; +XARELTO10 MG PO
== END | disposition home or self-care (01) ==
LOC: COVID19 11:08
PROVIDERS: ATTEND Podiatrist Foot & Ankle Surgery
DX: Z01.812 Encounter for preprocedural laboratory examination (principal); Z20.822 Contact with and (suspected) exposure to COVID-19

== ENCOUNTER → 2020-07-05 | Day surgery (SDC) | payer MEDICARE ==
[~2020-07-05] VITALS: Ht 160 cm; Wt 97.5 kg
[2020-07-05 06:58] VITALS: BP 86/30
[2020-07-05 08:07] VITALS: BP 94/32
[2020-07-05 08:22] VITALS: BP 91/40
[2020-07-05 08:37] VITALS: BP 110/51
[2020-07-06 12:07] LABS: ACID FAST SPEC PROCESSING Tissue Grinding (.)
== END | disposition home or self-care (01) ==
LOC: SDC 06-30 12:30
PROVIDERS: Chiropractor Orthopedic; ATTEND Podiatrist
DX: S91.302A Unspecified open wound, left foot, initial encounter (principal); I25.10 Atherosclerotic heart disease of native coronary artery without angina pectoris; I48.91 Unspecified atrial fibrillation; I13.0 Hypertensive heart and chronic kidney disease with heart failure and stage 1 through stage 4 chronic kidney disease, or unspecified chronic kidney disease; N18.9 Chronic kidney disease, unspecified; I50.9 Heart failure, unspecified; I25.2 Old myocardial infarction; K21.9 Gastro-esophageal reflux disease without esophagitis; Z87.891 Personal history of nicotine dependence; Z79.899 Other long term (current) drug therapy; X58.XXXA Exposure to other specified factors, initial encounter; Y93.89 Activity, other specified; Y92.89 Other specified places as the place of occurrence of the external cause; Y99.8 Other external cause status

== ENCOUNTER → 2020-09-26 | Outpatient (CLI) | payer MEDICARE | END | disposition home or self-care (01) | LOC: MAMMO 15:00 | PROVIDERS: ATTEND Nurse Practitioner Family | DX: Z12.31 Encounter for screening mammogram for malignant neoplasm of breast (principal); I12.9 Hypertensive chronic kidney disease with stage 1 through stage 4 chronic kidney disease, or unspecified chronic kidney disease; N18.5 Chronic kidney disease, stage 5; I45.10 Unspecified right bundle-branch block; E78.5 Hyperlipidemia, unspecified; D63.1 Anemia in chronic kidney disease; G62.9 Polyneuropathy, unspecified; N64.89 Other specified disorders of breast ==

== ENCOUNTER → 2021-02-21 | Outpatient (CLI) | payer MEDICARE | END | disposition home or self-care (01) | LOC: MRI 12:54 | PROVIDERS: ATTEND Podiatrist Foot & Ankle Surgery | DX: L97.519 Non-pressure chronic ulcer of other part of right foot with unspecified severity (principal); M86.171 Other acute osteomyelitis, right ankle and foot ==

== ENCOUNTER → 2021-06-28 | Outpatient (CLI) | payer MEDICARE ==
[~2021-06-28] MED LIST changes: +LYRICA50 M1 PO; +MIRAPEX0.125 M1 PO; +MUCINEX1200 M1 PO; +VIBRA-TAB100 MG PO; +ZYRTEC10 M3 PO
== END | disposition home or self-care (01) ==
LOC: MAMMO 08:00
PROVIDERS: ATTEND Nurse Practitioner Family
DX: N64.4 Mastodynia (principal); M51.36 Other intervertebral disc degeneration, lumbar region; M51.34 Other intervertebral disc degeneration, thoracic region; M47.816 Spondylosis without myelopathy or radiculopathy, lumbar region; I12.0 Hypertensive chronic kidney disease with stage 5 chronic kidney disease or end stage renal disease; M47.817 Spondylosis without myelopathy or radiculopathy, lumbosacral region; N18.5 Chronic kidney disease, stage 5

== ENCOUNTER 2021-07-04 08:45 | Inpatient (IN) | payer MEDICARE ==
[~2021-07-04] VITALS: Ht 162.5 cm; Wt 95.9 kg
[2021-07-04] VITALS (7 sets, daily range): BP systolic 97–132; BP diastolic 30–88
[~2021-07-04 08:45] MED LIST changes: -MIRAPEX0.125 M1 PO; -MUCINEX1200 M1 PO; -VIBRA-TAB100 MG PO; -ZYRTEC10 M3 PO
[2021-07-04 09:17] LABS: BASO % 0.7 % (0.0-1.0); EOS # 0.2 10*3/uL (0.0-0.4); EOS % 2.7 % (1.0-4.0); LYMPH # 0.8 10*3/uL (1.3-4.4); LYMPH % 12.8 % (27.0-41.0); MEAN CELL VOLUME 107.4 fl (81.0-99.0); MEAN CORPUSCULAR HGB 34.2 pg (27.0-31.0); MEAN CORPUSCULAR HGB CONC 31.8 g/dl (33.0-37.0); MEAN PLATELET VOLUME 9.8 fl (9.6-12.3); MONO # 0.4 10*3/uL (0.1-1.0); MONO % 6.7 % (3.0-9.0); NEUT # 4.5 10*3/uL (2.3-7.9); NEUT % 76.8 % (47.0-73.0); PLATELET COUNT AUTOMATED 235 10*3/uL (130-400); RED BLOOD COUNT 3.63 10*6/uL (4.10-5.10); RED CELL DISTRI WIDTH 14.3 % (0-14.5); WHITE BLOOD COUNT 5.9 10*3/uL (4.8-10.8)
[2021-07-04 09:28] LABS: ACT PARTIAL THROMBO TIME 28.3 SECONDS (20.0-32.1)
[2021-07-04] MEDS ORDERED: MIRAPEX0.125 M1 PO (14:15)
[2021-07-04] MEDS ORDERED: ZYRTEC10 M3 PO (14:17)
[2021-07-05] VITALS: BP 98/42
[2021-07-05 06:26] LABS: POTASSIUM 5.2 mmol/L (3.5-5.1)
[2021-07-05 06:29] LABS: CREATININE 8.44 mg/dL (0.55-1.02); HEMATOCRIT 39.7 % (37.0-47.0); MEAN CORPUSCULAR HGB 34.5 pg (27.0-31.0); MEAN CORPUSCULAR HGB CONC 32.2 g/dl (33.0-37.0); MEAN PLATELET VOLUME 10.3 fl (9.6-12.3); PLATELET COUNT AUTOMATED 237 10*3/uL (130-400); RED BLOOD COUNT 3.71 10*6/uL (4.10-5.10); WHITE BLOOD COUNT 9.3 10*3/uL (4.8-10.8)
[2021-07-05 07:05] LABS: MANUAL DIFF REFLEX YES
[2021-07-05 07:32] LABS: TOTAL CELLS COUNTED 100 #CELLS
[2021-07-05 07:33] LABS: PLATELET SUFFICIENCY NORMAL (NORMAL); POLYCHROMASIA SLIGHT
[2021-07-05 07:57] VITALS: BP 153/79
[2021-07-05 12:02] VITALS: BP 111/58
[2021-07-05] MEDS ORDERED: MUCINEX1200 M1 PO (13:01)
[2021-07-05] MEDS ORDERED: VIBRA-TAB100 MG PO (13:01)
[2021-07-05] MEDS ORDERED: PREDNISONE50 MG PO (13:01)
== END 2021-07-05 14:40 | disposition home or self-care (01) | DRG 189 ==
LOC: ED 08:45 → 5E 11:23 → EDHOLD 11:23 → 5E 17:14
PROVIDERS: Emergency Medicine; Hospitalist; ADMIT Student in an Organized Health Care Education/Training Program; ATTEND Student in an Organized Health Care Education/Training Program
PROC: 5A1D70Z Performance of Urinary Filtration, Intermittent, Less than 6 Hours Per Day (ICD-10-PCS; principal; 2021-07-04)
DX: J96.01 Acute respiratory failure with hypoxia (principal); N18.6 End stage renal disease; J44.1 Chronic obstructive pulmonary disease with (acute) exacerbation; E87.2 Acidosis; I50.32 Chronic diastolic (congestive) heart failure; Z66 Do not resuscitate; E83.41 Hypermagnesemia; E87.8 Other disorders of electrolyte and fluid balance, not elsewhere classified; Z99.2 Dependence on renal dialysis; S91.309A Unspecified open wound, unspecified foot, initial encounter; X58.XXXA Exposure to other specified factors, initial encounter; R73.9 Hyperglycemia, unspecified; I25.10 Atherosclerotic heart disease of native coronary artery without angina pectoris; E78.5 Hyperlipidemia, unspecified; G25.81 Restless legs syndrome; I11.0 Hypertensive heart disease with heart failure; K21.9 Gastro-esophageal reflux disease without esophagitis; I48.91 Unspecified atrial fibrillation; I73.9 Peripheral vascular disease, unspecified; Z91.040 Latex allergy status; Z79.82 Long term (current) use of aspirin; Z79.899 Other long term (current) drug therapy; Y93.89 Activity, other specified; Y92.89 Other specified places as the place of occurrence of the external cause; Y99.8 Other external cause status

== ENCOUNTER 2021-07-14 19:17 | Inpatient (IN) | payer MEDICARE ==
[~2021-07-14] VITALS: Ht 160 cm; Wt 95.7 kg
[2021-07-14] VITALS (7 sets, daily range): BP systolic 85–134; BP diastolic 19–52
[~2021-07-14 19:17] MED LIST changes: +MIRAPEX0.125 M1 PO; +MUCINEX1200 M1 PO; +VIBRA-TAB100 MG PO; +ZYRTEC10 M3 PO
[2021-07-14 19:47] LABS: BASO % 0.1 % (0.0-1.0); EOS % 0.1 % (1.0-4.0); HEMATOCRIT 36.5 % (37.0-47.0); LYMPH % 6.4 % (27.0-41.0); MEAN CELL VOLUME 107.4 fl (81.0-99.0); MEAN CORPUSCULAR HGB 33.8 pg (27.0-31.0); MEAN CORPUSCULAR HGB CONC 31.5 g/dl (33.0-37.0); MEAN PLATELET VOLUME 10.8 fl (9.6-12.3); MONO # 0.7 10*3/uL (0.1-1.0); MONO % 4.6 % (3.0-9.0); NEUT # 13.9 10*3/uL (2.3-7.9); NEUT % 88.3 % (47.0-73.0); PLATELET COUNT AUTOMATED 186 10*3/uL (130-400); RED CELL DISTRI WIDTH 14.6 % (0-14.5); WHITE BLOOD COUNT 15.7 10*3/uL (4.8-10.8)
[2021-07-14 20:08] LABS: CREATININE 8.69 mg/dL (0.55-1.02); POTASSIUM 5.4 mmol/L (3.5-5.1); TOTAL PROTEIN 7.2 gm/dL (6.4-8.2)
[2021-07-15] VITALS (10 sets, daily range): BP systolic 82–110; BP diastolic 26–49
[2021-07-15 06:33] LABS: HEMATOCRIT 34.1 % (37.0-47.0); MEAN CORPUSCULAR HGB 34.2 pg (27.0-31.0); MEAN CORPUSCULAR HGB CONC 31.1 g/dl (33.0-37.0); MEAN PLATELET VOLUME 11.3 fl (9.6-12.3); PLATELET COUNT AUTOMATED 133 10*3/uL (130-400); RED CELL DISTRI WIDTH 14.6 % (0-14.5); WHITE BLOOD COUNT 12.4 10*3/uL (4.8-10.8)
[2021-07-15 06:37] LABS: MANUAL DIFF REFLEX YES
[2021-07-15 06:46] LABS: CREATININE 9.21 mg/dL (0.55-1.02); FREE T4 0.88 ng/dl (0.76-1.46); POTASSIUM 5.1 mmol/L (3.5-5.1); TOTAL PROTEIN 6.6 gm/dL (6.4-8.2)
[2021-07-15 06:51] LABS: THYROID STIM HORMONE (HS) 0.525 uIU/ml (0.358-4.75)
[2021-07-15 07:44] LABS: PLATELET SUFFICIENCY NORMAL (NORMAL); TOTAL CELLS COUNTED 100 #CELLS
[2021-07-16] VITALS: BP 108/26
[2021-07-16 05:58] LABS: CREATININE 11.1 mg/dL (0.55-1.02); POTASSIUM 5.3 mmol/L (3.5-5.1)
[2021-07-16 06:30] LABS: BASO % 0.3 % (0.0-1.0); EOS # 0.2 10*3/uL (0.0-0.4); EOS % 2.1 % (1.0-4.0); HEMATOCRIT 33.1 % (37.0-47.0); LYMPH # 0.8 10*3/uL (1.3-4.4); LYMPH % 8.8 % (27.0-41.0); MEAN CELL VOLUME 107.5 fl (81.0-99.0); MEAN CORPUSCULAR HGB 34.4 pg (27.0-31.0); MEAN PLATELET VOLUME 11.2 fl (9.6-12.3); MONO # 0.4 10*3/uL (0.1-1.0); NEUT # 7.2 10*3/uL (2.3-7.9); NEUT % 83.3 % (47.0-73.0); PLATELET COUNT AUTOMATED 142 10*3/uL (130-400); RED BLOOD COUNT 3.08 10*6/uL (4.10-5.10); RED CELL DISTRI WIDTH 14.3 % (0-14.5); WHITE BLOOD COUNT 8.7 10*3/uL (4.8-10.8)
[2021-07-16 08:00] VITALS: BP 96/44
[2021-07-16 12:00] VITALS: BP 152/67
[2021-07-16 20:00] VITALS: BP 119/42
[2021-07-17] VITALS: BP 111/45
[2021-07-17 07:37] LABS: BASO % 0.1 % (0.0-1.0); EOS % 0.2 % (1.0-4.0); HEMATOCRIT 34.2 % (37.0-47.0); LYMPH # 0.7 10*3/uL (1.3-4.4); MEAN CELL VOLUME 107.2 fl (81.0-99.0); MEAN CORPUSCULAR HGB 33.5 pg (27.0-31.0); MEAN CORPUSCULAR HGB CONC 31.3 g/dl (33.0-37.0); MEAN PLATELET VOLUME 10.9 fl (9.6-12.3); MONO # 0.4 10*3/uL (0.1-1.0); MONO % 3.9 % (3.0-9.0); NEUT # 9.9 10*3/uL (2.3-7.9); NEUT % 89.1 % (47.0-73.0); PLATELET COUNT AUTOMATED 164 10*3/uL (130-400); RED BLOOD COUNT 3.19 10*6/uL (4.10-5.10); RED CELL DISTRI WIDTH 14.1 % (0-14.5); WHITE BLOOD COUNT 11.1 10*3/uL (4.8-10.8)
[2021-07-17 07:51] LABS: CREATININE 6.59 mg/dL (0.55-1.02); POTASSIUM 5.7 mmol/L (3.5-5.1)
[2021-07-17 08:00] VITALS: BP 113/41
[2021-07-17 12:00] VITALS: BP 124/46
[2021-07-17] MEDS ORDERED: CLEOCIN HCL150 MG PO (12:23)
== END 2021-07-17 16:45 | disposition home or self-care (01) | DRG 871 ==
LOC: ED 19:17 → 4E 23:34 → EDHOLD 23:34 → 4E 07-15 07:46
PROVIDERS: Internal Medicine; ADMIT Internal Medicine; ATTEND Internal Medicine
PROC: 5A1D70Z Performance of Urinary Filtration, Intermittent, Less than 6 Hours Per Day (ICD-10-PCS; principal; 2021-07-15)
DX: A41.9 Sepsis, unspecified organism (principal); N18.6 End stage renal disease; L03.116 Cellulitis of left lower limb; E87.2 Acidosis; E87.1 Hypo-osmolality and hyponatremia; I50.32 Chronic diastolic (congestive) heart failure; I13.2 Hypertensive heart and chronic kidney disease with heart failure and with stage 5 chronic kidney disease, or end stage renal disease; Z66 Do not resuscitate; R65.20 Severe sepsis without septic shock; E87.5 Hyperkalemia; E87.8 Other disorders of electrolyte and fluid balance, not elsewhere classified; I25.10 Atherosclerotic heart disease of native coronary artery without angina pectoris; D53.9 Nutritional anemia, unspecified; G25.81 Restless legs syndrome; K21.9 Gastro-esophageal reflux disease without esophagitis; E11.65 Type 2 diabetes mellitus with hyperglycemia; J44.9 Chronic obstructive pulmonary disease, unspecified; E11.51 Type 2 diabetes mellitus with diabetic peripheral angiopathy without gangrene; Z99.2 Dependence on renal dialysis; Z91.040 Latex allergy status; Z88.8 Allergy status to other drugs, medicaments and biological substances; Z79.899 Other long term (current) drug therapy; Z79.82 Long term (current) use of aspirin; Z68.37 Body mass index [BMI] 37.0-37.9, adult

== ENCOUNTER → 2021-09-24 | Outpatient (CLI) | payer MEDICARE ==
[~2021-09-24] MED LIST changes: +CLEOCIN HCL150 MG PO; +PREVACID30 M2 PO
== END | disposition home or self-care (01) ==
LOC: WOUNDCARE 00:01
PROVIDERS: ATTEND Podiatrist Foot & Ankle Surgery
DX: T81.89XA Other complications of procedures, not elsewhere classified, initial encounter (principal); L97.512 Non-pressure chronic ulcer of other part of right foot with fat layer exposed; L97.521 Non-pressure chronic ulcer of other part of left foot limited to breakdown of skin; L84 Corns and callosities; R60.9 Edema, unspecified; M24.571 Contracture, right ankle; I87.2 Venous insufficiency (chronic) (peripheral); I25.10 Atherosclerotic heart disease of native coronary artery without angina pectoris; I12.0 Hypertensive chronic kidney disease with stage 5 chronic kidney disease or end stage renal disease; N18.6 End stage renal disease; E78.5 Hyperlipidemia, unspecified; I73.9 Peripheral vascular disease, unspecified; G25.81 Restless legs syndrome; J44.9 Chronic obstructive pulmonary disease, unspecified; K21.9 Gastro-esophageal reflux disease without esophagitis; Z99.2 Dependence on renal dialysis; Z89.412 Acquired absence of left great toe; Z87.891 Personal history of nicotine dependence; Z95.1 Presence of aortocoronary bypass graft; Z95.5 Presence of coronary angioplasty implant and graft; Y92.238 Other place in hospital as the place of occurrence of the external cause; Y83.8 Other surgical procedures as the cause of abnormal reaction of the patient, or of later complication, without mention of misadventure at the time of the procedure

== ENCOUNTER → 2021-10-01 | Outpatient (CLI) | payer MEDICARE ==
[~2021-10-01] MED LIST changes: -PREVACID30 M2 PO
[2021-10-01 16:46] LABS: BASO % 0.6 % (0.0-1.0); EOS # 0.2 10*3/uL (0.0-0.4); HEMATOCRIT 37.2 % (37.0-47.0); LYMPH # 0.7 10*3/uL (1.3-4.4); LYMPH % 15.3 % (27.0-41.0); MEAN CELL VOLUME 105.7 fl (81.0-99.0); MEAN CORPUSCULAR HGB CONC 31.2 g/dl (33.0-37.0); MEAN PLATELET VOLUME 9.5 fl (9.6-12.3); MONO # 0.3 10*3/uL (0.1-1.0); MONO % 5.5 % (3.0-9.0); NEUT # 3.5 10*3/uL (2.3-7.9); NEUT % 74.4 % (47.0-73.0); PLATELET COUNT AUTOMATED 199 10*3/uL (130-400); RED BLOOD COUNT 3.52 10*6/uL (4.10-5.10); RED CELL DISTRI WIDTH 14.4 % (0-14.5); WHITE BLOOD COUNT 4.7 10*3/uL (4.8-10.8)
[2021-10-01 17:01] LABS: CREATININE 4.99 mg/dL (0.55-1.02); POTASSIUM 3.7 mmol/L (3.5-5.1); TOTAL PROTEIN 7.7 gm/dL (6.4-8.2)
== END | disposition home or self-care (01) ==
LOC: WOUNDCARE 03:33 → LAB 03:33 → WOUNDCARE 07:33
PROVIDERS: ATTEND Podiatrist Foot & Ankle Surgery
DX: T81.89XD Other complications of procedures, not elsewhere classified, subsequent encounter (principal); L97.521 Non-pressure chronic ulcer of other part of left foot limited to breakdown of skin; L97.512 Non-pressure chronic ulcer of other part of right foot with fat layer exposed; L84 Corns and callosities; M24.571 Contracture, right ankle; R60.9 Edema, unspecified; I12.0 Hypertensive chronic kidney disease with stage 5 chronic kidney disease or end stage renal disease; N18.6 End stage renal disease; E78.5 Hyperlipidemia, unspecified; G25.89 Other specified extrapyramidal and movement disorders; I87.2 Venous insufficiency (chronic) (peripheral); I25.10 Atherosclerotic heart disease of native coronary artery without angina pectoris; I73.9 Peripheral vascular disease, unspecified; R73.09 Other abnormal glucose; J44.9 Chronic obstructive pulmonary disease, unspecified; K21.9 Gastro-esophageal reflux disease without esophagitis; Z99.2 Dependence on renal dialysis; Z89.412 Acquired absence of left great toe; Z87.891 Personal history of nicotine dependence; Z95.1 Presence of aortocoronary bypass graft; Z95.5 Presence of coronary angioplasty implant and graft; Y83.8 Other surgical procedures as the cause of abnormal reaction of the patient, or of later complication, without mention of misadventure at the time of the procedure

== ENCOUNTER → 2021-10-08 | Outpatient (CLI) | payer MEDICARE | END | disposition home or self-care (01) | LOC: WOUNDCARE 01:19 | PROVIDERS: ATTEND Podiatrist Foot & Ankle Surgery | DX: T81.89XD Other complications of procedures, not elsewhere classified, subsequent encounter (principal); L97.512 Non-pressure chronic ulcer of other part of right foot with fat layer exposed; L84 Corns and callosities; L97.521 Non-pressure chronic ulcer of other part of left foot limited to breakdown of skin; M24.571 Contracture, right ankle; R60.9 Edema, unspecified; E78.5 Hyperlipidemia, unspecified; G25.89 Other specified extrapyramidal and movement disorders; I87.2 Venous insufficiency (chronic) (peripheral); I25.10 Atherosclerotic heart disease of native coronary artery without angina pectoris; I12.0 Hypertensive chronic kidney disease with stage 5 chronic kidney disease or end stage renal disease; N18.6 End stage renal disease; I73.9 Peripheral vascular disease, unspecified; J44.9 Chronic obstructive pulmonary disease, unspecified; K21.9 Gastro-esophageal reflux disease without esophagitis; Z99.2 Dependence on renal dialysis; Z89.412 Acquired absence of left great toe; Z87.891 Personal history of nicotine dependence; Z95.1 Presence of aortocoronary bypass graft; Z95.5 Presence of coronary angioplasty implant and graft; Y83.8 Other surgical procedures as the cause of abnormal reaction of the patient, or of later complication, without mention of misadventure at the time of the procedure ==

== ENCOUNTER → 2021-10-15 | Outpatient (CLI) | payer MEDICARE ==
[~2021-10-15] MED LIST changes: +DOXYCYCLINE50 M2 PO; +OCUFLOX 5 ML5 ML OP; +PREVACID30 M2 PO
== END | disposition home or self-care (01) ==
LOC: WOUNDCARE 02:27
PROVIDERS: ATTEND Podiatrist Foot & Ankle Surgery
DX: T81.89XD Other complications of procedures, not elsewhere classified, subsequent encounter (principal); L97.521 Non-pressure chronic ulcer of other part of left foot limited to breakdown of skin; L97.512 Non-pressure chronic ulcer of other part of right foot with fat layer exposed; L84 Corns and callosities; I12.0 Hypertensive chronic kidney disease with stage 5 chronic kidney disease or end stage renal disease; N18.6 End stage renal disease; M24.571 Contracture, right ankle; R60.9 Edema, unspecified; I87.2 Venous insufficiency (chronic) (peripheral); I25.10 Atherosclerotic heart disease of native coronary artery without angina pectoris; E78.5 Hyperlipidemia, unspecified; G25.89 Other specified extrapyramidal and movement disorders; J44.9 Chronic obstructive pulmonary disease, unspecified; K21.9 Gastro-esophageal reflux disease without esophagitis; I73.9 Peripheral vascular disease, unspecified; Z99.2 Dependence on renal dialysis; Z89.412 Acquired absence of left great toe; Z87.891 Personal history of nicotine dependence; Z95.4 Presence of other heart-valve replacement; Z95.1 Presence of aortocoronary bypass graft; Y83.8 Other surgical procedures as the cause of abnormal reaction of the patient, or of later complication, without mention of misadventure at the time of the procedure

== ENCOUNTER → 2021-10-17 | Day surgery (SDC) | payer MEDICARE ==
[~2021-10-17] VITALS: Ht 160 cm; Wt 93.0 kg
[2021-10-17 07:03] VITALS: BP 133/58
[2021-10-17 08:34] VITALS: BP 115/37
[2021-10-17 08:48] VITALS: BP 117/43
[2021-10-17 09:04] VITALS: BP 135/52
[2021-10-18 10:07] LABS: ACID FAST SPEC PROCESSING Tissue Grinding (.)
[2021-10-18 11:07] LABS: ACID FAST SPEC PROCESSING Tissue Grinding (.)
== END | disposition home or self-care (01) ==
LOC: SDC 10-12 08:45
PROVIDERS: ATTEND Podiatrist
DX: S91.302A Unspecified open wound, left foot, initial encounter (principal); S91.301A Unspecified open wound, right foot, initial encounter; M86.8X7 Other osteomyelitis, ankle and foot; I13.0 Hypertensive heart and chronic kidney disease with heart failure and stage 1 through stage 4 chronic kidney disease, or unspecified chronic kidney disease; I50.9 Heart failure, unspecified; N18.9 Chronic kidney disease, unspecified; K21.9 Gastro-esophageal reflux disease without esophagitis; I25.10 Atherosclerotic heart disease of native coronary artery without angina pectoris; I25.2 Old myocardial infarction; X58.XXXA Exposure to other specified factors, initial encounter; Y93.89 Activity, other specified; Y92.89 Other specified places as the place of occurrence of the external cause; Y99.8 Other external cause status

== ENCOUNTER → 2021-10-22 | Outpatient (CLI) | payer MEDICARE ==
[2021-10-22 16:50] LABS: BASO % 0.4 % (0.0-1.0); EOS # 0.3 10*3/uL (0.0-0.4); EOS % 6.2 % (1.0-4.0); HEMATOCRIT 36.1 % (37.0-47.0); LYMPH # 0.7 10*3/uL (1.3-4.4); LYMPH % 15.1 % (27.0-41.0); MEAN CELL VOLUME 102.8 fl (81.0-99.0); MEAN CORPUSCULAR HGB 32.8 pg (27.0-31.0); MEAN CORPUSCULAR HGB CONC 31.9 g/dl (33.0-37.0); MEAN PLATELET VOLUME 9.6 fl (9.6-12.3); MONO # 0.3 10*3/uL (0.1-1.0); MONO % 6.8 % (3.0-9.0); NEUT # 3.4 10*3/uL (2.3-7.9); NEUT % 71.3 % (47.0-73.0); PLATELET COUNT AUTOMATED 209 10*3/uL (130-400); RED BLOOD COUNT 3.51 10*6/uL (4.10-5.10); RED CELL DISTRI WIDTH 14.2 % (0-14.5); WHITE BLOOD COUNT 4.8 10*3/uL (4.8-10.8)
[2021-10-22 17:11] LABS: CREATININE 4.45 mg/dL (0.55-1.02); POTASSIUM 3.7 mmol/L (3.5-5.1)
== END | disposition home or self-care (01) ==
LOC: LAB 03:45 → WOUNDCARE 03:45
PROVIDERS: ATTEND Podiatrist Foot & Ankle Surgery
DX: T81.89XD Other complications of procedures, not elsewhere classified, subsequent encounter (principal); L97.521 Non-pressure chronic ulcer of other part of left foot limited to breakdown of skin; L97.512 Non-pressure chronic ulcer of other part of right foot with fat layer exposed; M86.672 Other chronic osteomyelitis, left ankle and foot; M24.571 Contracture, right ankle; R60.9 Edema, unspecified; G25.81 Restless legs syndrome; E78.5 Hyperlipidemia, unspecified; I87.2 Venous insufficiency (chronic) (peripheral); I25.10 Atherosclerotic heart disease of native coronary artery without angina pectoris; I12.0 Hypertensive chronic kidney disease with stage 5 chronic kidney disease or end stage renal disease; N18.6 End stage renal disease; I73.9 Peripheral vascular disease, unspecified; K21.9 Gastro-esophageal reflux disease without esophagitis; J44.9 Chronic obstructive pulmonary disease, unspecified; Z99.2 Dependence on renal dialysis; Z89.412 Acquired absence of left great toe; Z87.891 Personal history of nicotine dependence; Z95.4 Presence of other heart-valve replacement; Z95.1 Presence of aortocoronary bypass graft; Z95.5 Presence of coronary angioplasty implant and graft; Y83.8 Other surgical procedures as the cause of abnormal reaction of the patient, or of later complication, without mention of misadventure at the time of the procedure

== ENCOUNTER → 2021-10-29 | Outpatient (CLI) | payer MEDICARE | END | disposition home or self-care (01) | LOC: WOUNDCARE 01:01 | PROVIDERS: ATTEND Podiatrist Foot & Ankle Surgery | DX: L97.522 Non-pressure chronic ulcer of other part of left foot with fat layer exposed (principal); T81.89XD Other complications of procedures, not elsewhere classified, subsequent encounter; L97.521 Non-pressure chronic ulcer of other part of left foot limited to breakdown of skin; L84 Corns and callosities; I12.0 Hypertensive chronic kidney disease with stage 5 chronic kidney disease or end stage renal disease; N18.6 End stage renal disease; M24.571 Contracture, right ankle; R60.9 Edema, unspecified; I87.2 Venous insufficiency (chronic) (peripheral); I25.10 Atherosclerotic heart disease of native coronary artery without angina pectoris; E78.5 Hyperlipidemia, unspecified; G25.89 Other specified extrapyramidal and movement disorders; J44.9 Chronic obstructive pulmonary disease, unspecified; K21.9 Gastro-esophageal reflux disease without esophagitis; I73.9 Peripheral vascular disease, unspecified; Z99.2 Dependence on renal dialysis; Z89.412 Acquired absence of left great toe; Z87.891 Personal history of nicotine dependence; Z95.4 Presence of other heart-valve replacement; Z95.1 Presence of aortocoronary bypass graft; Y83.8 Other surgical procedures as the cause of abnormal reaction of the patient, or of later complication, without mention of misadventure at the time of the procedure ==

== ENCOUNTER → 2021-11-12 | Outpatient (CLI) | payer MEDICARE | LOC: WOUNDCARE 04:48 | PROVIDERS: ATTEND Podiatrist Foot & Ankle Surgery | DX: T81.89XD Other complications of procedures, not elsewhere classified, subsequent encounter (principal); L97.514 Non-pressure chronic ulcer of other part of right foot with necrosis of bone; L97.521 Non-pressure chronic ulcer of other part of left foot limited to breakdown of skin; L89.613 Pressure ulcer of right heel, stage 3; L89.893 Pressure ulcer of other site, stage 3; I12.0 Hypertensive chronic kidney disease with stage 5 chronic kidney disease or end stage renal disease; N18.6 End stage renal disease; E78.5 Hyperlipidemia, unspecified; R60.9 Edema, unspecified; G25.81 Restless legs syndrome; I25.10 Atherosclerotic heart disease of native coronary artery without angina pectoris; I87.2 Venous insufficiency (chronic) (peripheral); I73.9 Peripheral vascular disease, unspecified; J44.9 Chronic obstructive pulmonary disease, unspecified; M24.571 Contracture, right ankle; K21.9 Gastro-esophageal reflux disease without esophagitis; Z99.2 Dependence on renal dialysis; Z87.891 Personal history of nicotine dependence; Z95.1 Presence of aortocoronary bypass graft; Z89.412 Acquired absence of left great toe; Z95.5 Presence of coronary angioplasty implant and graft; Y83.8 Other surgical procedures as the cause of abnormal reaction of the patient, or of later complication, without mention of misadventure at the time of the procedure ==

== ENCOUNTER → 2021-11-19 | Outpatient (CLI) | payer MEDICARE ==
[~2021-11-19] MED LIST changes: +ERYTHROMYCIN PO; +PREVACID15 MG PO; -PREVACID30 M2 PO
== END | disposition home or self-care (01) ==
LOC: WOUNDCARE 03:02
PROVIDERS: ATTEND Podiatrist Foot & Ankle Surgery
DX: T81.89XD Other complications of procedures, not elsewhere classified, subsequent encounter (principal); L97.512 Non-pressure chronic ulcer of other part of right foot with fat layer exposed; L97.521 Non-pressure chronic ulcer of other part of left foot limited to breakdown of skin; L89.513 Pressure ulcer of right ankle, stage 3; L89.893 Pressure ulcer of other site, stage 3; L89.523 Pressure ulcer of left ankle, stage 3; L84 Corns and callosities; M24.571 Contracture, right ankle; R60.9 Edema, unspecified; I12.0 Hypertensive chronic kidney disease with stage 5 chronic kidney disease or end stage renal disease; N18.6 End stage renal disease; I87.2 Venous insufficiency (chronic) (peripheral); I25.10 Atherosclerotic heart disease of native coronary artery without angina pectoris; I73.9 Peripheral vascular disease, unspecified; G25.81 Restless legs syndrome; E78.5 Hyperlipidemia, unspecified; J44.9 Chronic obstructive pulmonary disease, unspecified; K21.9 Gastro-esophageal reflux disease without esophagitis; Z99.2 Dependence on renal dialysis; Z89.412 Acquired absence of left great toe; Z87.891 Personal history of nicotine dependence; Z95.4 Presence of other heart-valve replacement; Z95.1 Presence of aortocoronary bypass graft; Z95.5 Presence of coronary angioplasty implant and graft; Y83.8 Other surgical procedures as the cause of abnormal reaction of the patient, or of later complication, without mention of misadventure at the time of the procedure

== ENCOUNTER → 2021-11-21 | Day surgery (SDC) | payer MEDICARE ==
[2021-11-21] VITALS (8 sets, daily range): BP systolic 80–131; BP diastolic 34–55
[~2021-11-21] VITALS: Ht 160 cm; Wt 93.0 kg
[~2021-11-21] MED LIST changes: +ULTRAM50 MG PO; +VIBRAMYCIN HYC100 MG PO
[2021-11-22 10:07] LABS: ACID FAST SPEC PROCESSING Tissue Grinding (.)
== END | disposition home or self-care (01) ==
LOC: SDC 11-20 14:45
PROVIDERS: ATTEND Podiatrist
DX: M86.671 Other chronic osteomyelitis, right ankle and foot (principal); S91.301A Unspecified open wound, right foot, initial encounter; I12.9 Hypertensive chronic kidney disease with stage 1 through stage 4 chronic kidney disease, or unspecified chronic kidney disease; I50.9 Heart failure, unspecified; N18.9 Chronic kidney disease, unspecified; K21.9 Gastro-esophageal reflux disease without esophagitis; I25.10 Atherosclerotic heart disease of native coronary artery without angina pectoris; I25.2 Old myocardial infarction; Z91.048 Other nonmedicinal substance allergy status; X58.XXXA Exposure to other specified factors, initial encounter; Y93.89 Activity, other specified; Y92.89 Other specified places as the place of occurrence of the external cause; Y99.8 Other external cause status

== ENCOUNTER → 2021-11-26 | Outpatient (CLI) | payer MEDICARE | END | disposition home or self-care (01) | LOC: WOUNDCARE 00:49 | PROVIDERS: ATTEND Podiatrist Foot & Ankle Surgery | DX: T86.828 Other complications of skin graft (allograft) (autograft) (principal); L97.514 Non-pressure chronic ulcer of other part of right foot with necrosis of bone; L89.613 Pressure ulcer of right heel, stage 3; L89.893 Pressure ulcer of other site, stage 3; L89.623 Pressure ulcer of left heel, stage 3; L84 Corns and callosities; I25.10 Atherosclerotic heart disease of native coronary artery without angina pectoris; I12.0 Hypertensive chronic kidney disease with stage 5 chronic kidney disease or end stage renal disease; N18.6 End stage renal disease; E78.5 Hyperlipidemia, unspecified; G25.81 Restless legs syndrome; J44.9 Chronic obstructive pulmonary disease, unspecified; I73.9 Peripheral vascular disease, unspecified; R60.9 Edema, unspecified; I87.2 Venous insufficiency (chronic) (peripheral); G60.9 Hereditary and idiopathic neuropathy, unspecified; M86.671 Other chronic osteomyelitis, right ankle and foot; M24.571 Contracture, right ankle; K21.9 Gastro-esophageal reflux disease without esophagitis; Z87.891 Personal history of nicotine dependence; Z89.412 Acquired absence of left great toe; Z95.4 Presence of other heart-valve replacement; Z95.1 Presence of aortocoronary bypass graft; Z99.2 Dependence on renal dialysis; Y83.2 Surgical operation with anastomosis, bypass or graft as the cause of abnormal reaction of the patient, or of later complication, without mention of misadventure at the time of the procedure ==

== ENCOUNTER → 2021-11-28 | Outpatient (CLI) | payer MEDICARE | END | disposition home or self-care (01) | LOC: WOUNDCARE 00:53 | PROVIDERS: ATTEND Nurse Practitioner Family | DX: T86.828 Other complications of skin graft (allograft) (autograft) (principal); L97.514 Non-pressure chronic ulcer of other part of right foot with necrosis of bone; L97.521 Non-pressure chronic ulcer of other part of left foot limited to breakdown of skin; M86.671 Other chronic osteomyelitis, right ankle and foot; M24.571 Contracture, right ankle; G60.9 Hereditary and idiopathic neuropathy, unspecified; R60.9 Edema, unspecified; I87.2 Venous insufficiency (chronic) (peripheral); N18.6 End stage renal disease; E78.5 Hyperlipidemia, unspecified; I73.9 Peripheral vascular disease, unspecified; G25.81 Restless legs syndrome; I10 Essential (primary) hypertension; I25.10 Atherosclerotic heart disease of native coronary artery without angina pectoris; J44.9 Chronic obstructive pulmonary disease, unspecified; K21.9 Gastro-esophageal reflux disease without esophagitis; Z99.2 Dependence on renal dialysis; Z87.891 Personal history of nicotine dependence; Z95.5 Presence of coronary angioplasty implant and graft; Z95.1 Presence of aortocoronary bypass graft; Z95.4 Presence of other heart-valve replacement; Y83.2 Surgical operation with anastomosis, bypass or graft as the cause of abnormal reaction of the patient, or of later complication, without mention of misadventure at the time of the procedure ==

== ENCOUNTER → 2021-12-03 | Outpatient (CLI) | payer MEDICARE ==
[2021-12-03 15:41] LABS: BASO % 0.5 % (0.0-1.0); EOS # 0.2 10*3/uL (0.0-0.4); EOS % 2.7 % (1.0-4.0); HEMATOCRIT 37.3 % (37.0-47.0); LYMPH # 0.7 10*3/uL (1.3-4.4); MEAN CELL VOLUME 97.9 fl (81.0-99.0); MEAN CORPUSCULAR HGB 30.2 pg (27.0-31.0); MEAN CORPUSCULAR HGB CONC 30.8 g/dl (33.0-37.0); MEAN PLATELET VOLUME 9.9 fl (9.6-12.3); MONO # 0.2 10*3/uL (0.1-1.0); MONO % 4.1 % (3.0-9.0); NEUT # 4.7 10*3/uL (2.3-7.9); NEUT % 80.4 % (47.0-73.0); PLATELET COUNT AUTOMATED 252 10*3/uL (130-400); RED BLOOD COUNT 3.81 10*6/uL (4.10-5.10); RED CELL DISTRI WIDTH 15.1 % (0-14.5); WHITE BLOOD COUNT 5.9 10*3/uL (4.8-10.8)
== END | disposition home or self-care (01) ==
LOC: LAB 01:55 → WOUNDCARE 01:55
PROVIDERS: Student in an Organized Health Care Education/Training Program; ATTEND Podiatrist Foot & Ankle Surgery
DX: T86.828 Other complications of skin graft (allograft) (autograft) (principal); L97.514 Non-pressure chronic ulcer of other part of right foot with necrosis of bone; L97.521 Non-pressure chronic ulcer of other part of left foot limited to breakdown of skin; M86.671 Other chronic osteomyelitis, right ankle and foot; M24.571 Contracture, right ankle; I12.0 Hypertensive chronic kidney disease with stage 5 chronic kidney disease or end stage renal disease; N18.6 End stage renal disease; R60.9 Edema, unspecified; I87.2 Venous insufficiency (chronic) (peripheral); G25.81 Restless legs syndrome; G60.9 Hereditary and idiopathic neuropathy, unspecified; I25.10 Atherosclerotic heart disease of native coronary artery without angina pectoris; I73.9 Peripheral vascular disease, unspecified; E78.5 Hyperlipidemia, unspecified; J44.9 Chronic obstructive pulmonary disease, unspecified; K21.9 Gastro-esophageal reflux disease without esophagitis; Z89.412 Acquired absence of left great toe; Z99.2 Dependence on renal dialysis; Z87.891 Personal history of nicotine dependence; Z95.4 Presence of other heart-valve replacement; Z95.1 Presence of aortocoronary bypass graft; Z95.5 Presence of coronary angioplasty implant and graft; Y83.2 Surgical operation with anastomosis, bypass or graft as the cause of abnormal reaction of the patient, or of later complication, without mention of misadventure at the time of the procedure

== ENCOUNTER → 2021-12-10 | Outpatient (CLI) | payer MEDICARE | LOC: WOUNDCARE 07:26 | PROVIDERS: ATTEND Podiatrist Foot & Ankle Surgery | DX: T86.828 Other complications of skin graft (allograft) (autograft) (principal); T81.89XA Other complications of procedures, not elsewhere classified, initial encounter; L97.514 Non-pressure chronic ulcer of other part of right foot with necrosis of bone; L97.521 Non-pressure chronic ulcer of other part of left foot limited to breakdown of skin; L89.513 Pressure ulcer of right ankle, stage 3; L89.893 Pressure ulcer of other site, stage 3; L89.523 Pressure ulcer of left ankle, stage 3; E78.5 Hyperlipidemia, unspecified; G60.9 Hereditary and idiopathic neuropathy, unspecified; M86.671 Other chronic osteomyelitis, right ankle and foot; M24.571 Contracture, right ankle; G25.81 Restless legs syndrome; I87.2 Venous insufficiency (chronic) (peripheral); I25.10 Atherosclerotic heart disease of native coronary artery without angina pectoris; I12.0 Hypertensive chronic kidney disease with stage 5 chronic kidney disease or end stage renal disease; N18.6 End stage renal disease; K21.9 Gastro-esophageal reflux disease without esophagitis; J44.9 Chronic obstructive pulmonary disease, unspecified; I73.9 Peripheral vascular disease, unspecified; Z99.2 Dependence on renal dialysis; Z89.412 Acquired absence of left great toe; Z87.891 Personal history of nicotine dependence; Z95.4 Presence of other heart-valve replacement; Z95.1 Presence of aortocoronary bypass graft; Z95.5 Presence of coronary angioplasty implant and graft; Y92.238 Other place in hospital as the place of occurrence of the external cause; Y83.8 Other surgical procedures as the cause of abnormal reaction of the patient, or of later complication, without mention of misadventure at the time of the procedure; Y83.2 Surgical operation with anastomosis, bypass or graft as the cause of abnormal reaction of the patient, or of later complication, without mention of misadventure at the time of the procedure ==

== ENCOUNTER → 2021-12-17 | Outpatient (CLI) | payer MEDICARE ==
[~2021-12-17] MED LIST changes: +DOXYCYCLINE HY100 M3 PO
== END | disposition home or self-care (01) ==
LOC: WOUNDCARE 03:30
PROVIDERS: ATTEND Podiatrist Foot & Ankle Surgery
DX: T86.828 Other complications of skin graft (allograft) (autograft) (principal); T81.89XD Other complications of procedures, not elsewhere classified, subsequent encounter; L89.523 Pressure ulcer of left ankle, stage 3; L97.514 Non-pressure chronic ulcer of other part of right foot with necrosis of bone; L97.521 Non-pressure chronic ulcer of other part of left foot limited to breakdown of skin; I12.0 Hypertensive chronic kidney disease with stage 5 chronic kidney disease or end stage renal disease; N18.6 End stage renal disease; I87.2 Venous insufficiency (chronic) (peripheral); I25.10 Atherosclerotic heart disease of native coronary artery without angina pectoris; E78.5 Hyperlipidemia, unspecified; G60.9 Hereditary and idiopathic neuropathy, unspecified; G25.81 Restless legs syndrome; M86.671 Other chronic osteomyelitis, right ankle and foot; K21.9 Gastro-esophageal reflux disease without esophagitis; J44.9 Chronic obstructive pulmonary disease, unspecified; I73.9 Peripheral vascular disease, unspecified; Z99.2 Dependence on renal dialysis; Z89.412 Acquired absence of left great toe; Z87.891 Personal history of nicotine dependence; Z95.4 Presence of other heart-valve replacement; Z95.1 Presence of aortocoronary bypass graft; Z95.5 Presence of coronary angioplasty implant and graft; Y83.2 Surgical operation with anastomosis, bypass or graft as the cause of abnormal reaction of the patient, or of later complication, without mention of misadventure at the time of the procedure; Y83.8 Other surgical procedures as the cause of abnormal reaction of the patient, or of later complication, without mention of misadventure at the time of the procedure

== ENCOUNTER → 2021-12-19 | Outpatient (CLI) | payer MEDICARE ==
[~2021-12-19] MED LIST changes: -DOXYCYCLINE HY100 M3 PO
[2021-12-19 11:28] LABS: BASO % 0.4 % (0.0-1.0); EOS # 0.2 10*3/uL (0.0-0.4); EOS % 3.4 % (1.0-4.0); HEMATOCRIT 32.4 % (37.0-47.0); LYMPH # 0.6 10*3/uL (1.3-4.4); LYMPH % 12.7 % (27.0-41.0); MEAN CELL VOLUME 99.1 fl (81.0-99.0); MEAN CORPUSCULAR HGB 30.3 pg (27.0-31.0); MEAN CORPUSCULAR HGB CONC 30.6 g/dl (33.0-37.0); MONO # 0.2 10*3/uL (0.1-1.0); MONO % 4.7 % (3.0-9.0); NEUT # 3.6 10*3/uL (2.3-7.9); NEUT % 78.4 % (47.0-73.0); PLATELET COUNT AUTOMATED 244 10*3/uL (130-400); RED BLOOD COUNT 3.27 10*6/uL (4.10-5.10); RED CELL DISTRI WIDTH 15.4 % (0-14.5); WHITE BLOOD COUNT 4.7 10*3/uL (4.8-10.8)
[2021-12-19 11:53] LABS: CREATININE 2.59 mg/dL (0.55-1.02); POTASSIUM 3.4 mmol/L (3.5-5.1)
== END | disposition home or self-care (01) ==
LOC: LAB 11:09
PROVIDERS: ATTEND Podiatrist Foot & Ankle Surgery
DX: M86.671 Other chronic osteomyelitis, right ankle and foot (principal); I10 Essential (primary) hypertension

== ENCOUNTER → 2021-12-24 | Outpatient (CLI) | payer MEDICARE ==
[~2021-12-24] MED LIST changes: +DOXYCYCLINE HY100 M3 PO
== END ==
LOC: WOUNDCARE 02:13
PROVIDERS: ATTEND Podiatrist Foot & Ankle Surgery
DX: T86.828 Other complications of skin graft (allograft) (autograft) (principal); L97.521 Non-pressure chronic ulcer of other part of left foot limited to breakdown of skin; L97.514 Non-pressure chronic ulcer of other part of right foot with necrosis of bone; M24.571 Contracture, right ankle; R60.9 Edema, unspecified; I87.2 Venous insufficiency (chronic) (peripheral); M86.671 Other chronic osteomyelitis, right ankle and foot; G60.9 Hereditary and idiopathic neuropathy, unspecified; I25.10 Atherosclerotic heart disease of native coronary artery without angina pectoris; I12.0 Hypertensive chronic kidney disease with stage 5 chronic kidney disease or end stage renal disease; N18.6 End stage renal disease; I73.9 Peripheral vascular disease, unspecified; J44.9 Chronic obstructive pulmonary disease, unspecified; K21.9 Gastro-esophageal reflux disease without esophagitis; G25.81 Restless legs syndrome; E78.5 Hyperlipidemia, unspecified; Z99.2 Dependence on renal dialysis; Z89.412 Acquired absence of left great toe; Y83.2 Surgical operation with anastomosis, bypass or graft as the cause of abnormal reaction of the patient, or of later complication, without mention of misadventure at the time of the procedure

== ENCOUNTER → 2021-12-24 | Outpatient (CLI) | payer MEDICARE | END | disposition home or self-care (01) | LOC: WOUNDCARE 10:37 | PROVIDERS: ATTEND Internal Medicine | DX: M86.671 Other chronic osteomyelitis, right ankle and foot (principal); T86.828 Other complications of skin graft (allograft) (autograft); L97.514 Non-pressure chronic ulcer of other part of right foot with necrosis of bone; L97.521 Non-pressure chronic ulcer of other part of left foot limited to breakdown of skin; L84 Corns and callosities; R60.9 Edema, unspecified; G60.9 Hereditary and idiopathic neuropathy, unspecified; I87.2 Venous insufficiency (chronic) (peripheral); I25.10 Atherosclerotic heart disease of native coronary artery without angina pectoris; I12.0 Hypertensive chronic kidney disease with stage 5 chronic kidney disease or end stage renal disease; N18.6 End stage renal disease; E78.5 Hyperlipidemia, unspecified; G25.81 Restless legs syndrome; J44.9 Chronic obstructive pulmonary disease, unspecified; I73.9 Peripheral vascular disease, unspecified; K21.9 Gastro-esophageal reflux disease without esophagitis; M24.571 Contracture, right ankle; Z89.412 Acquired absence of left great toe; Z99.2 Dependence on renal dialysis; Z87.891 Personal history of nicotine dependence; Z95.1 Presence of aortocoronary bypass graft; Z95.4 Presence of other heart-valve replacement; Z95.5 Presence of coronary angioplasty implant and graft; Y83.2 Surgical operation with anastomosis, bypass or graft as the cause of abnormal reaction of the patient, or of later complication, without mention of misadventure at the time of the procedure ==

== ENCOUNTER → 2021-12-25 | Outpatient (CLI) | payer MEDICARE | END | disposition home or self-care (01) | LOC: WOUNDCARE 03:35 | PROVIDERS: ATTEND Nurse Practitioner Family | DX: M86.671 Other chronic osteomyelitis, right ankle and foot (principal); T86.828 Other complications of skin graft (allograft) (autograft); L97.521 Non-pressure chronic ulcer of other part of left foot limited to breakdown of skin; L97.514 Non-pressure chronic ulcer of other part of right foot with necrosis of bone; R60.9 Edema, unspecified; I12.0 Hypertensive chronic kidney disease with stage 5 chronic kidney disease or end stage renal disease; N18.6 End stage renal disease; I87.2 Venous insufficiency (chronic) (peripheral); G60.9 Hereditary and idiopathic neuropathy, unspecified; I25.10 Atherosclerotic heart disease of native coronary artery without angina pectoris; I73.9 Peripheral vascular disease, unspecified; E78.5 Hyperlipidemia, unspecified; G25.81 Restless legs syndrome; K21.9 Gastro-esophageal reflux disease without esophagitis; J44.9 Chronic obstructive pulmonary disease, unspecified; M24.571 Contracture, right ankle; Z89.412 Acquired absence of left great toe; Z99.2 Dependence on renal dialysis; Z95.1 Presence of aortocoronary bypass graft; Z95.5 Presence of coronary angioplasty implant and graft; Z87.891 Personal history of nicotine dependence; Y83.2 Surgical operation with anastomosis, bypass or graft as the cause of abnormal reaction of the patient, or of later complication, without mention of misadventure at the time of the procedure ==

== ENCOUNTER → 2021-12-26 | Outpatient (CLI) | payer MEDICARE | END | disposition home or self-care (01) | LOC: WOUNDCARE 01:04 | PROVIDERS: ATTEND Nurse Practitioner Family | DX: M86.671 Other chronic osteomyelitis, right ankle and foot (principal); T86.828 Other complications of skin graft (allograft) (autograft); L97.514 Non-pressure chronic ulcer of other part of right foot with necrosis of bone; L97.521 Non-pressure chronic ulcer of other part of left foot limited to breakdown of skin; M24.571 Contracture, right ankle; R60.9 Edema, unspecified; G60.9 Hereditary and idiopathic neuropathy, unspecified; I87.2 Venous insufficiency (chronic) (peripheral); I12.0 Hypertensive chronic kidney disease with stage 5 chronic kidney disease or end stage renal disease; N18.6 End stage renal disease; I25.10 Atherosclerotic heart disease of native coronary artery without angina pectoris; I73.9 Peripheral vascular disease, unspecified; E78.5 Hyperlipidemia, unspecified; G25.81 Restless legs syndrome; K21.9 Gastro-esophageal reflux disease without esophagitis; J44.9 Chronic obstructive pulmonary disease, unspecified; Z99.2 Dependence on renal dialysis; Z87.891 Personal history of nicotine dependence; Z89.412 Acquired absence of left great toe; Z95.1 Presence of aortocoronary bypass graft ==

== ENCOUNTER → 2021-12-26 | Day surgery (SDC) | payer MEDICARE ==
[~2021-12-26] VITALS: Ht 160 cm; Wt 93.0 kg
[2021-12-26 07:19] VITALS: BP 133/62
[2021-12-26 08:27] VITALS: BP 80/29
[2021-12-26 08:42] VITALS: BP 81/31
[2021-12-26 08:57] VITALS: BP 100/33
[2021-12-26 09:12] VITALS: BP 101/45
[2021-12-27 11:07] LABS: ACID FAST SPEC PROCESSING Tissue Grinding (.)
== END | disposition home or self-care (01) ==
LOC: SDC 12-14 08:45
PROVIDERS: ATTEND Podiatrist
DX: S91.301A Unspecified open wound, right foot, initial encounter (principal); M86.171 Other acute osteomyelitis, right ankle and foot; I25.10 Atherosclerotic heart disease of native coronary artery without angina pectoris; I25.2 Old myocardial infarction; I11.0 Hypertensive heart disease with heart failure; I50.9 Heart failure, unspecified; K21.9 Gastro-esophageal reflux disease without esophagitis; Z87.891 Personal history of nicotine dependence; X58.XXXA Exposure to other specified factors, initial encounter; Y93.89 Activity, other specified; Y92.89 Other specified places as the place of occurrence of the external cause; Y99.8 Other external cause status; Z95.1 Presence of aortocoronary bypass graft; Z98.890 Other specified postprocedural states; Z79.82 Long term (current) use of aspirin

== ENCOUNTER → 2021-12-27 | Outpatient (CLI) | payer MEDICARE | LOC: WOUNDCARE 01:13 | PROVIDERS: ATTEND Nurse Practitioner Family | DX: M86.671 Other chronic osteomyelitis, right ankle and foot (principal); T86.828 Other complications of skin graft (allograft) (autograft); L97.521 Non-pressure chronic ulcer of other part of left foot limited to breakdown of skin; L97.514 Non-pressure chronic ulcer of other part of right foot with necrosis of bone; M24.571 Contracture, right ankle; I87.2 Venous insufficiency (chronic) (peripheral); R60.9 Edema, unspecified; G60.9 Hereditary and idiopathic neuropathy, unspecified; I25.10 Atherosclerotic heart disease of native coronary artery without angina pectoris; I12.0 Hypertensive chronic kidney disease with stage 5 chronic kidney disease or end stage renal disease; N18.6 End stage renal disease; E78.5 Hyperlipidemia, unspecified; G25.81 Restless legs syndrome; K21.9 Gastro-esophageal reflux disease without esophagitis; J44.9 Chronic obstructive pulmonary disease, unspecified; Z99.2 Dependence on renal dialysis; Z89.412 Acquired absence of left great toe; Z95.1 Presence of aortocoronary bypass graft; Z95.4 Presence of other heart-valve replacement; Z95.5 Presence of coronary angioplasty implant and graft; Z87.891 Personal history of nicotine dependence; Y83.2 Surgical operation with anastomosis, bypass or graft as the cause of abnormal reaction of the patient, or of later complication, without mention of misadventure at the time of the procedure ==

== ENCOUNTER → 2021-12-28 | Outpatient (CLI) | payer MEDICARE | END | disposition home or self-care (01) | LOC: WOUNDCARE 02:32 | PROVIDERS: ATTEND Nurse Practitioner Family | DX: M86.671 Other chronic osteomyelitis, right ankle and foot (principal); T86.828 Other complications of skin graft (allograft) (autograft); L97.514 Non-pressure chronic ulcer of other part of right foot with necrosis of bone; L97.521 Non-pressure chronic ulcer of other part of left foot limited to breakdown of skin; I87.2 Venous insufficiency (chronic) (peripheral); R60.9 Edema, unspecified; G60.9 Hereditary and idiopathic neuropathy, unspecified; E78.5 Hyperlipidemia, unspecified; I25.10 Atherosclerotic heart disease of native coronary artery without angina pectoris; I12.0 Hypertensive chronic kidney disease with stage 5 chronic kidney disease or end stage renal disease; N18.6 End stage renal disease; I73.9 Peripheral vascular disease, unspecified; J44.9 Chronic obstructive pulmonary disease, unspecified; K21.9 Gastro-esophageal reflux disease without esophagitis; G25.81 Restless legs syndrome; M24.571 Contracture, right ankle; Z99.2 Dependence on renal dialysis; Z89.412 Acquired absence of left great toe; Z95.1 Presence of aortocoronary bypass graft; Z95.5 Presence of coronary angioplasty implant and graft; Z87.891 Personal history of nicotine dependence; Y83.2 Surgical operation with anastomosis, bypass or graft as the cause of abnormal reaction of the patient, or of later complication, without mention of misadventure at the time of the procedure ==

== ENCOUNTER → 2021-12-31 | Outpatient (CLI) | payer MEDICARE | END | disposition home or self-care (01) | LOC: WOUNDCARE 02:41 | PROVIDERS: ATTEND Student in an Organized Health Care Education/Training Program | DX: T86.828 Other complications of skin graft (allograft) (autograft) (principal); T81.89XD Other complications of procedures, not elsewhere classified, subsequent encounter; L97.514 Non-pressure chronic ulcer of other part of right foot with necrosis of bone; L97.521 Non-pressure chronic ulcer of other part of left foot limited to breakdown of skin; M86.671 Other chronic osteomyelitis, right ankle and foot; R60.9 Edema, unspecified; I12.0 Hypertensive chronic kidney disease with stage 5 chronic kidney disease or end stage renal disease; N18.6 End stage renal disease; E78.5 Hyperlipidemia, unspecified; I87.2 Venous insufficiency (chronic) (peripheral); G25.81 Restless legs syndrome; G60.9 Hereditary and idiopathic neuropathy, unspecified; I25.10 Atherosclerotic heart disease of native coronary artery without angina pectoris; I73.9 Peripheral vascular disease, unspecified; J44.9 Chronic obstructive pulmonary disease, unspecified; M24.571 Contracture, right ankle; K21.9 Gastro-esophageal reflux disease without esophagitis; Z89.412 Acquired absence of left great toe; Z99.2 Dependence on renal dialysis; Z87.891 Personal history of nicotine dependence; Z95.4 Presence of other heart-valve replacement; Z95.1 Presence of aortocoronary bypass graft; Z95.5 Presence of coronary angioplasty implant and graft; Y83.8 Other surgical procedures as the cause of abnormal reaction of the patient, or of later complication, without mention of misadventure at the time of the procedure; Y83.2 Surgical operation with anastomosis, bypass or graft as the cause of abnormal reaction of the patient, or of later complication, without mention of misadventure at the time of the procedure ==

== ENCOUNTER → 2022-01-02 | Outpatient (CLI) | payer MEDICARE | LOC: WOUNDCARE 00:31 | PROVIDERS: ATTEND Nurse Practitioner Family | DX: M86.671 Other chronic osteomyelitis, right ankle and foot (principal); T86.828 Other complications of skin graft (allograft) (autograft); L97.514 Non-pressure chronic ulcer of other part of right foot with necrosis of bone; L97.521 Non-pressure chronic ulcer of other part of left foot limited to breakdown of skin; G60.9 Hereditary and idiopathic neuropathy, unspecified; I87.2 Venous insufficiency (chronic) (peripheral); R60.9 Edema, unspecified; I25.10 Atherosclerotic heart disease of native coronary artery without angina pectoris; I12.0 Hypertensive chronic kidney disease with stage 5 chronic kidney disease or end stage renal disease; N18.6 End stage renal disease; I73.9 Peripheral vascular disease, unspecified; E78.5 Hyperlipidemia, unspecified; G25.81 Restless legs syndrome; J44.9 Chronic obstructive pulmonary disease, unspecified; K21.9 Gastro-esophageal reflux disease without esophagitis; M24.471 Recurrent dislocation, right ankle; Z99.2 Dependence on renal dialysis; Z89.412 Acquired absence of left great toe; Z87.891 Personal history of nicotine dependence; Z95.1 Presence of aortocoronary bypass graft; Z95.5 Presence of coronary angioplasty implant and graft; Y83.2 Surgical operation with anastomosis, bypass or graft as the cause of abnormal reaction of the patient, or of later complication, without mention of misadventure at the time of the procedure ==

== ENCOUNTER → 2022-01-03 | Outpatient (CLI) | payer MEDICARE | LOC: WOUNDCARE 01:01 | PROVIDERS: ATTEND Nurse Practitioner Family | DX: M86.671 Other chronic osteomyelitis, right ankle and foot (principal); T86.828 Other complications of skin graft (allograft) (autograft); L97.514 Non-pressure chronic ulcer of other part of right foot with necrosis of bone; L97.521 Non-pressure chronic ulcer of other part of left foot limited to breakdown of skin; M24.571 Contracture, right ankle; R60.9 Edema, unspecified; I87.2 Venous insufficiency (chronic) (peripheral); G60.9 Hereditary and idiopathic neuropathy, unspecified; I25.10 Atherosclerotic heart disease of native coronary artery without angina pectoris; I12.0 Hypertensive chronic kidney disease with stage 5 chronic kidney disease or end stage renal disease; N18.6 End stage renal disease; I73.9 Peripheral vascular disease, unspecified; E78.5 Hyperlipidemia, unspecified; J44.9 Chronic obstructive pulmonary disease, unspecified; K21.9 Gastro-esophageal reflux disease without esophagitis; G25.81 Restless legs syndrome; Z89.412 Acquired absence of left great toe; Z99.2 Dependence on renal dialysis; Z95.4 Presence of other heart-valve replacement; Z95.1 Presence of aortocoronary bypass graft; Z95.5 Presence of coronary angioplasty implant and graft; Y83.2 Surgical operation with anastomosis, bypass or graft as the cause of abnormal reaction of the patient, or of later complication, without mention of misadventure at the time of the procedure ==

== ENCOUNTER → 2022-01-04 | Outpatient (CLI) | payer MEDICARE | END | disposition home or self-care (01) | LOC: WOUNDCARE 01:09 | PROVIDERS: ATTEND Nurse Practitioner Family | DX: M86.671 Other chronic osteomyelitis, right ankle and foot (principal); T86.828 Other complications of skin graft (allograft) (autograft); L97.514 Non-pressure chronic ulcer of other part of right foot with necrosis of bone; L97.521 Non-pressure chronic ulcer of other part of left foot limited to breakdown of skin; M24.571 Contracture, right ankle; R60.9 Edema, unspecified; G60.9 Hereditary and idiopathic neuropathy, unspecified; I87.2 Venous insufficiency (chronic) (peripheral); I25.10 Atherosclerotic heart disease of native coronary artery without angina pectoris; I12.0 Hypertensive chronic kidney disease with stage 5 chronic kidney disease or end stage renal disease; N18.6 End stage renal disease; I73.9 Peripheral vascular disease, unspecified; E78.5 Hyperlipidemia, unspecified; G25.81 Restless legs syndrome; J44.9 Chronic obstructive pulmonary disease, unspecified; K21.9 Gastro-esophageal reflux disease without esophagitis; Z89.412 Acquired absence of left great toe; Z99.2 Dependence on renal dialysis; Z95.4 Presence of other heart-valve replacement; Z95.1 Presence of aortocoronary bypass graft; Z95.5 Presence of coronary angioplasty implant and graft; Z87.891 Personal history of nicotine dependence; Y83.2 Surgical operation with anastomosis, bypass or graft as the cause of abnormal reaction of the patient, or of later complication, without mention of misadventure at the time of the procedure ==

== ENCOUNTER → 2022-01-07 | Outpatient (CLI) | payer MEDICARE | END | disposition home or self-care (01) | LOC: WOUNDCARE 04:11 | PROVIDERS: ATTEND Student in an Organized Health Care Education/Training Program | DX: M86.671 Other chronic osteomyelitis, right ankle and foot (principal); T86.828 Other complications of skin graft (allograft) (autograft); L97.514 Non-pressure chronic ulcer of other part of right foot with necrosis of bone; L97.521 Non-pressure chronic ulcer of other part of left foot limited to breakdown of skin; M24.571 Contracture, right ankle; R60.9 Edema, unspecified; I87.2 Venous insufficiency (chronic) (peripheral); G60.9 Hereditary and idiopathic neuropathy, unspecified; I25.10 Atherosclerotic heart disease of native coronary artery without angina pectoris; I12.0 Hypertensive chronic kidney disease with stage 5 chronic kidney disease or end stage renal disease; N18.6 End stage renal disease; E78.5 Hyperlipidemia, unspecified; G25.81 Restless legs syndrome; I73.9 Peripheral vascular disease, unspecified; J44.9 Chronic obstructive pulmonary disease, unspecified; K21.9 Gastro-esophageal reflux disease without esophagitis; Z89.412 Acquired absence of left great toe; Z99.2 Dependence on renal dialysis; Z87.891 Personal history of nicotine dependence; Z95.4 Presence of other heart-valve replacement; Z95.1 Presence of aortocoronary bypass graft; Z95.5 Presence of coronary angioplasty implant and graft; Y83.2 Surgical operation with anastomosis, bypass or graft as the cause of abnormal reaction of the patient, or of later complication, without mention of misadventure at the time of the procedure ==

== ENCOUNTER → 2022-01-11 | Outpatient (CLI) | payer MEDICARE | END | disposition home or self-care (01) | LOC: WOUNDCARE | PROVIDERS: ATTEND Nurse Practitioner Family | DX: M86.671 Other chronic osteomyelitis, right ankle and foot (principal); T86.828 Other complications of skin graft (allograft) (autograft); L97.514 Non-pressure chronic ulcer of other part of right foot with necrosis of bone; L97.521 Non-pressure chronic ulcer of other part of left foot limited to breakdown of skin; E78.5 Hyperlipidemia, unspecified; I12.0 Hypertensive chronic kidney disease with stage 5 chronic kidney disease or end stage renal disease; N18.6 End stage renal disease; I25.10 Atherosclerotic heart disease of native coronary artery without angina pectoris; M24.571 Contracture, right ankle; R60.9 Edema, unspecified; I73.9 Peripheral vascular disease, unspecified; I87.2 Venous insufficiency (chronic) (peripheral); G60.9 Hereditary and idiopathic neuropathy, unspecified; G25.81 Restless legs syndrome; J44.9 Chronic obstructive pulmonary disease, unspecified; K21.9 Gastro-esophageal reflux disease without esophagitis; Z89.412 Acquired absence of left great toe; Z99.2 Dependence on renal dialysis; Z95.4 Presence of other heart-valve replacement; Z95.1 Presence of aortocoronary bypass graft; Z95.5 Presence of coronary angioplasty implant and graft; Z87.891 Personal history of nicotine dependence ==

== ENCOUNTER → 2022-01-14 | Outpatient (CLI) | payer MEDICARE | END | disposition home or self-care (01) | LOC: WOUNDCARE | PROVIDERS: ATTEND Internal Medicine | DX: M86.671 Other chronic osteomyelitis, right ankle and foot (principal); T86.828 Other complications of skin graft (allograft) (autograft); T81.89XD Other complications of procedures, not elsewhere classified, subsequent encounter; L97.514 Non-pressure chronic ulcer of other part of right foot with necrosis of bone; L97.521 Non-pressure chronic ulcer of other part of left foot limited to breakdown of skin; R60.9 Edema, unspecified; I87.2 Venous insufficiency (chronic) (peripheral); G60.9 Hereditary and idiopathic neuropathy, unspecified; I25.10 Atherosclerotic heart disease of native coronary artery without angina pectoris; I12.0 Hypertensive chronic kidney disease with stage 5 chronic kidney disease or end stage renal disease; N18.6 End stage renal disease; I73.9 Peripheral vascular disease, unspecified; E78.5 Hyperlipidemia, unspecified; G25.81 Restless legs syndrome; J44.9 Chronic obstructive pulmonary disease, unspecified; M24.571 Contracture, right ankle; K21.9 Gastro-esophageal reflux disease without esophagitis; Z89.412 Acquired absence of left great toe; Z99.2 Dependence on renal dialysis; Z87.891 Personal history of nicotine dependence; Z95.4 Presence of other heart-valve replacement; Z95.1 Presence of aortocoronary bypass graft; Z95.5 Presence of coronary angioplasty implant and graft; Y83.8 Other surgical procedures as the cause of abnormal reaction of the patient, or of later complication, without mention of misadventure at the time of the procedure; Y83.2 Surgical operation with anastomosis, bypass or graft as the cause of abnormal reaction of the patient, or of later complication, without mention of misadventure at the time of the procedure ==

== ENCOUNTER → 2022-01-16 | Outpatient (CLI) | payer MEDICARE | END | disposition home or self-care (01) | LOC: WOUNDCARE 00:29 | PROVIDERS: ATTEND Nurse Practitioner Family | DX: M86.671 Other chronic osteomyelitis, right ankle and foot (principal); T86.828 Other complications of skin graft (allograft) (autograft); L97.514 Non-pressure chronic ulcer of other part of right foot with necrosis of bone; L97.521 Non-pressure chronic ulcer of other part of left foot limited to breakdown of skin; R60.9 Edema, unspecified; I87.2 Venous insufficiency (chronic) (peripheral); G60.9 Hereditary and idiopathic neuropathy, unspecified; I25.10 Atherosclerotic heart disease of native coronary artery without angina pectoris; I12.0 Hypertensive chronic kidney disease with stage 5 chronic kidney disease or end stage renal disease; N18.6 End stage renal disease; I73.9 Peripheral vascular disease, unspecified; E78.5 Hyperlipidemia, unspecified; G25.81 Restless legs syndrome; J44.9 Chronic obstructive pulmonary disease, unspecified; K21.9 Gastro-esophageal reflux disease without esophagitis; M24.571 Contracture, right ankle; Z89.412 Acquired absence of left great toe; Z99.2 Dependence on renal dialysis; Z95.4 Presence of other heart-valve replacement; Z95.1 Presence of aortocoronary bypass graft; Z95.5 Presence of coronary angioplasty implant and graft; Z87.891 Personal history of nicotine dependence; Y83.2 Surgical operation with anastomosis, bypass or graft as the cause of abnormal reaction of the patient, or of later complication, without mention of misadventure at the time of the procedure ==

== ENCOUNTER → 2022-01-21 | Outpatient (CLI) | payer MEDICARE | END | disposition home or self-care (01) | LOC: WOUNDCARE 01:44 | PROVIDERS: ATTEND Internal Medicine | DX: M86.671 Other chronic osteomyelitis, right ankle and foot (principal); T86.828 Other complications of skin graft (allograft) (autograft); L97.514 Non-pressure chronic ulcer of other part of right foot with necrosis of bone; L97.521 Non-pressure chronic ulcer of other part of left foot limited to breakdown of skin; M24.571 Contracture, right ankle; R60.9 Edema, unspecified; I87.2 Venous insufficiency (chronic) (peripheral); G60.9 Hereditary and idiopathic neuropathy, unspecified; I25.10 Atherosclerotic heart disease of native coronary artery without angina pectoris; I12.0 Hypertensive chronic kidney disease with stage 5 chronic kidney disease or end stage renal disease; N18.6 End stage renal disease; E78.5 Hyperlipidemia, unspecified; G25.81 Restless legs syndrome; K21.9 Gastro-esophageal reflux disease without esophagitis; J44.9 Chronic obstructive pulmonary disease, unspecified; I73.9 Peripheral vascular disease, unspecified; L84 Corns and callosities; Z89.412 Acquired absence of left great toe; Z99.2 Dependence on renal dialysis; Z95.4 Presence of other heart-valve replacement; Z95.1 Presence of aortocoronary bypass graft; Z95.5 Presence of coronary angioplasty implant and graft; Y83.2 Surgical operation with anastomosis, bypass or graft as the cause of abnormal reaction of the patient, or of later complication, without mention of misadventure at the time of the procedure ==

== ENCOUNTER → 2022-01-21 | Outpatient (CLI) | payer MEDICARE | END | disposition home or self-care (01) | LOC: WOUNDCARE 00:59 | PROVIDERS: ATTEND Nurse Practitioner Family | DX: M86.671 Other chronic osteomyelitis, right ankle and foot (principal); T86.828 Other complications of skin graft (allograft) (autograft); L97.521 Non-pressure chronic ulcer of other part of left foot limited to breakdown of skin; L97.514 Non-pressure chronic ulcer of other part of right foot with necrosis of bone; M24.571 Contracture, right ankle; R60.9 Edema, unspecified; I12.0 Hypertensive chronic kidney disease with stage 5 chronic kidney disease or end stage renal disease; N18.6 End stage renal disease; I87.2 Venous insufficiency (chronic) (peripheral); I73.9 Peripheral vascular disease, unspecified; G60.9 Hereditary and idiopathic neuropathy, unspecified; G25.81 Restless legs syndrome; E78.5 Hyperlipidemia, unspecified; J44.9 Chronic obstructive pulmonary disease, unspecified; I25.10 Atherosclerotic heart disease of native coronary artery without angina pectoris; K21.9 Gastro-esophageal reflux disease without esophagitis; Z99.2 Dependence on renal dialysis; Z89.412 Acquired absence of left great toe; Z87.891 Personal history of nicotine dependence; Z95.4 Presence of other heart-valve replacement; Z95.1 Presence of aortocoronary bypass graft; Z95.5 Presence of coronary angioplasty implant and graft; Y83.2 Surgical operation with anastomosis, bypass or graft as the cause of abnormal reaction of the patient, or of later complication, without mention of misadventure at the time of the procedure ==

== ENCOUNTER → 2022-01-28 | Outpatient (CLI) | payer MEDICARE | END | disposition home or self-care (01) | LOC: WOUNDCARE 00:53 | PROVIDERS: ATTEND Student in an Organized Health Care Education/Training Program | DX: M86.671 Other chronic osteomyelitis, right ankle and foot (principal); T86.828 Other complications of skin graft (allograft) (autograft); L97.514 Non-pressure chronic ulcer of other part of right foot with necrosis of bone; L97.521 Non-pressure chronic ulcer of other part of left foot limited to breakdown of skin; L84 Corns and callosities; M24.571 Contracture, right ankle; R60.9 Edema, unspecified; I87.2 Venous insufficiency (chronic) (peripheral); G60.9 Hereditary and idiopathic neuropathy, unspecified; I25.10 Atherosclerotic heart disease of native coronary artery without angina pectoris; I12.0 Hypertensive chronic kidney disease with stage 5 chronic kidney disease or end stage renal disease; N18.6 End stage renal disease; E78.5 Hyperlipidemia, unspecified; G25.81 Restless legs syndrome; K21.9 Gastro-esophageal reflux disease without esophagitis; J44.9 Chronic obstructive pulmonary disease, unspecified; I73.9 Peripheral vascular disease, unspecified; Z89.412 Acquired absence of left great toe; Z99.2 Dependence on renal dialysis; Z87.891 Personal history of nicotine dependence; Z95.4 Presence of other heart-valve replacement; Z95.1 Presence of aortocoronary bypass graft; Z95.5 Presence of coronary angioplasty implant and graft; Y83.2 Surgical operation with anastomosis, bypass or graft as the cause of abnormal reaction of the patient, or of later complication, without mention of misadventure at the time of the procedure ==

== ENCOUNTER → 2022-01-30 | Outpatient (CLI) | payer MEDICARE | END | disposition home or self-care (01) | LOC: WOUNDCARE 01:32 | PROVIDERS: ATTEND Nurse Practitioner Family | DX: M86.671 Other chronic osteomyelitis, right ankle and foot (principal); T86.828 Other complications of skin graft (allograft) (autograft); L97.514 Non-pressure chronic ulcer of other part of right foot with necrosis of bone; L97.521 Non-pressure chronic ulcer of other part of left foot limited to breakdown of skin; M24.571 Contracture, right ankle; R60.9 Edema, unspecified; I87.2 Venous insufficiency (chronic) (peripheral); G60.9 Hereditary and idiopathic neuropathy, unspecified; I25.10 Atherosclerotic heart disease of native coronary artery without angina pectoris; I12.0 Hypertensive chronic kidney disease with stage 5 chronic kidney disease or end stage renal disease; N18.6 End stage renal disease; I73.9 Peripheral vascular disease, unspecified; E78.5 Hyperlipidemia, unspecified; G25.81 Restless legs syndrome; J44.9 Chronic obstructive pulmonary disease, unspecified; K21.9 Gastro-esophageal reflux disease without esophagitis; Z89.412 Acquired absence of left great toe; Z99.2 Dependence on renal dialysis; Z95.4 Presence of other heart-valve replacement; Z95.1 Presence of aortocoronary bypass graft; Z95.5 Presence of coronary angioplasty implant and graft; Z87.891 Personal history of nicotine dependence; Y83.2 Surgical operation with anastomosis, bypass or graft as the cause of abnormal reaction of the patient, or of later complication, without mention of misadventure at the time of the procedure ==

== ENCOUNTER → 2022-01-31 | Outpatient (CLI) | payer MEDICARE | END | disposition home or self-care (01) | LOC: WOUNDCARE 00:33 | PROVIDERS: ATTEND Internal Medicine | DX: M86.671 Other chronic osteomyelitis, right ankle and foot (principal); T86.828 Other complications of skin graft (allograft) (autograft); L97.514 Non-pressure chronic ulcer of other part of right foot with necrosis of bone; L97.521 Non-pressure chronic ulcer of other part of left foot limited to breakdown of skin; M24.571 Contracture, right ankle; R60.9 Edema, unspecified; I87.2 Venous insufficiency (chronic) (peripheral); G60.9 Hereditary and idiopathic neuropathy, unspecified; I25.10 Atherosclerotic heart disease of native coronary artery without angina pectoris; I12.0 Hypertensive chronic kidney disease with stage 5 chronic kidney disease or end stage renal disease; N18.6 End stage renal disease; E78.5 Hyperlipidemia, unspecified; G25.81 Restless legs syndrome; K21.9 Gastro-esophageal reflux disease without esophagitis; J44.9 Chronic obstructive pulmonary disease, unspecified; I73.9 Peripheral vascular disease, unspecified; Z99.2 Dependence on renal dialysis; Z89.412 Acquired absence of left great toe; Z95.4 Presence of other heart-valve replacement; Z95.1 Presence of aortocoronary bypass graft; Z95.5 Presence of coronary angioplasty implant and graft; Z87.891 Personal history of nicotine dependence; Y83.2 Surgical operation with anastomosis, bypass or graft as the cause of abnormal reaction of the patient, or of later complication, without mention of misadventure at the time of the procedure ==

== ENCOUNTER → 2022-02-01 | Outpatient (CLI) | payer MEDICARE ==
[2022-02-01 12:59] LABS: BASO % 0.5 % (0.0-1.0); EOS # 0.2 10*3/uL (0.0-0.4); EOS % 3.9 % (1.0-4.0); HEMATOCRIT 35.2 % (37.0-47.0); LYMPH # 0.6 10*3/uL (1.3-4.4); MEAN CORPUSCULAR HGB 29.5 pg (27.0-31.0); MEAN CORPUSCULAR HGB CONC 29.5 g/dl (33.0-37.0); MONO # 0.2 10*3/uL (0.1-1.0); MONO % 4.4 % (3.0-9.0); NEUT # 2.9 10*3/uL (2.3-7.9); NEUT % 75.9 % (47.0-73.0); PLATELET COUNT AUTOMATED 152 10*3/uL (130-400); RED BLOOD COUNT 3.52 10*6/uL (4.10-5.10); RED CELL DISTRI WIDTH 18.7 % (0-14.5); WHITE BLOOD COUNT 3.9 10*3/uL (4.8-10.8)
[2022-02-01 13:20] LABS: CREATININE 2.58 mg/dL (0.55-1.02); POTASSIUM 3.5 mmol/L (3.4-5.1)
== END | disposition home or self-care (01) ==
LOC: LAB 12:09
PROVIDERS: ATTEND Internal Medicine Infectious Disease
DX: M86.171 Other acute osteomyelitis, right ankle and foot (principal)

== ENCOUNTER → 2022-02-08 | Outpatient (CLI) | payer MEDICARE | LOC: WOUNDCARE 01:12 | PROVIDERS: ATTEND Nurse Practitioner Family | DX: Z53.21 Procedure and treatment not carried out due to patient leaving prior to being seen by health care provider (principal) ==

== ENCOUNTER → 2022-02-11 | Outpatient (CLI) | payer MEDICARE | END | disposition home or self-care (01) | LOC: WOUNDCARE 02:08 | PROVIDERS: ATTEND Podiatrist Foot & Ankle Surgery | DX: T86.828 Other complications of skin graft (allograft) (autograft) (principal); T81.89XD Other complications of procedures, not elsewhere classified, subsequent encounter; L97.514 Non-pressure chronic ulcer of other part of right foot with necrosis of bone; L97.521 Non-pressure chronic ulcer of other part of left foot limited to breakdown of skin; M86.671 Other chronic osteomyelitis, right ankle and foot; L84 Corns and callosities; M24.571 Contracture, right ankle; R60.9 Edema, unspecified; I87.2 Venous insufficiency (chronic) (peripheral); G60.9 Hereditary and idiopathic neuropathy, unspecified; I25.10 Atherosclerotic heart disease of native coronary artery without angina pectoris; E78.5 Hyperlipidemia, unspecified; G25.81 Restless legs syndrome; K21.9 Gastro-esophageal reflux disease without esophagitis; J44.9 Chronic obstructive pulmonary disease, unspecified; I73.9 Peripheral vascular disease, unspecified; I12.0 Hypertensive chronic kidney disease with stage 5 chronic kidney disease or end stage renal disease; N18.6 End stage renal disease; Z89.412 Acquired absence of left great toe; Z99.2 Dependence on renal dialysis; Z87.891 Personal history of nicotine dependence; Z95.4 Presence of other heart-valve replacement; Z95.1 Presence of aortocoronary bypass graft; Z95.5 Presence of coronary angioplasty implant and graft; Y83.8 Other surgical procedures as the cause of abnormal reaction of the patient, or of later complication, without mention of misadventure at the time of the procedure; Y83.2 Surgical operation with anastomosis, bypass or graft as the cause of abnormal reaction of the patient, or of later complication, without mention of misadventure at the time of the procedure ==

== ENCOUNTER → 2022-02-13 | Day surgery (SDC) | payer MEDICARE ==
[~2022-02-13] VITALS: Ht 160 cm; Wt 93.0 kg
[2022-02-13 11:41] VITALS: BP 118/40
[2022-02-13 12:56] VITALS: BP 100/25
[2022-02-13 13:12] VITALS: BP 103/40
[2022-02-13 13:26] VITALS: BP 104/48
[2022-02-14 12:07] LABS: ACID FAST SPEC PROCESSING Tissue Grinding (.)
== END | disposition home or self-care (01) ==
LOC: SDC 02-12 08:45
PROVIDERS: Podiatrist; ATTEND Podiatrist Foot & Ankle Surgery
DX: S91.301A Unspecified open wound, right foot, initial encounter (principal); I13.2 Hypertensive heart and chronic kidney disease with heart failure and with stage 5 chronic kidney disease, or end stage renal disease; I50.9 Heart failure, unspecified; N18.9 Chronic kidney disease, unspecified; K21.9 Gastro-esophageal reflux disease without esophagitis; I25.2 Old myocardial infarction; I25.10 Atherosclerotic heart disease of native coronary artery without angina pectoris; Z95.1 Presence of aortocoronary bypass graft; J44.9 Chronic obstructive pulmonary disease, unspecified; X58.XXXA Exposure to other specified factors, initial encounter; Y93.89 Activity, other specified; Y92.89 Other specified places as the place of occurrence of the external cause; Y99.8 Other external cause status

== ENCOUNTER → 2022-02-15 | Outpatient (CLI) | payer MEDICARE | LOC: WOUNDCARE | PROVIDERS: ATTEND Nurse Practitioner Family | DX: Z53.21 Procedure and treatment not carried out due to patient leaving prior to being seen by health care provider (principal) ==

== ENCOUNTER → 2022-02-18 | Outpatient (CLI) | payer MEDICARE | END | disposition home or self-care (01) | LOC: WOUNDCARE 04:04 | PROVIDERS: ATTEND Podiatrist Foot & Ankle Surgery | DX: T86.828 Other complications of skin graft (allograft) (autograft) (principal); T81.89XD Other complications of procedures, not elsewhere classified, subsequent encounter; E11.621 Type 2 diabetes mellitus with foot ulcer; L97.514 Non-pressure chronic ulcer of other part of right foot with necrosis of bone; L97.521 Non-pressure chronic ulcer of other part of left foot limited to breakdown of skin; M86.671 Other chronic osteomyelitis, right ankle and foot; M24.571 Contracture, right ankle; R60.9 Edema, unspecified; I87.2 Venous insufficiency (chronic) (peripheral); G60.9 Hereditary and idiopathic neuropathy, unspecified; I25.10 Atherosclerotic heart disease of native coronary artery without angina pectoris; I12.0 Hypertensive chronic kidney disease with stage 5 chronic kidney disease or end stage renal disease; N18.6 End stage renal disease; E78.5 Hyperlipidemia, unspecified; G25.81 Restless legs syndrome; J44.9 Chronic obstructive pulmonary disease, unspecified; I73.9 Peripheral vascular disease, unspecified; K21.9 Gastro-esophageal reflux disease without esophagitis; Z95.1 Presence of aortocoronary bypass graft; Z95.5 Presence of coronary angioplasty implant and graft; Z89.412 Acquired absence of left great toe; Z99.2 Dependence on renal dialysis; Z87.891 Personal history of nicotine dependence; Z95.4 Presence of other heart-valve replacement; Y83.8 Other surgical procedures as the cause of abnormal reaction of the patient, or of later complication, without mention of misadventure at the time of the procedure; Y83.2 Surgical operation with anastomosis, bypass or graft as the cause of abnormal reaction of the patient, or of later complication, without mention of misadventure at the time of the procedure ==

== ENCOUNTER → 2022-03-18 | Outpatient (CLI) | payer MEDICARE | END | disposition home or self-care (01) | LOC: WOUNDCARE 01:40 | PROVIDERS: ATTEND Podiatrist Foot & Ankle Surgery | DX: T86.828 Other complications of skin graft (allograft) (autograft) (principal); L97.514 Non-pressure chronic ulcer of other part of right foot with necrosis of bone; L97.521 Non-pressure chronic ulcer of other part of left foot limited to breakdown of skin; L89.610 Pressure ulcer of right heel, unstageable; L84 Corns and callosities; M86.671 Other chronic osteomyelitis, right ankle and foot; M24.571 Contracture, right ankle; R60.9 Edema, unspecified; I87.2 Venous insufficiency (chronic) (peripheral); G60.9 Hereditary and idiopathic neuropathy, unspecified; G25.81 Restless legs syndrome; I25.10 Atherosclerotic heart disease of native coronary artery without angina pectoris; I12.0 Hypertensive chronic kidney disease with stage 5 chronic kidney disease or end stage renal disease; N18.6 End stage renal disease; E78.5 Hyperlipidemia, unspecified; J44.9 Chronic obstructive pulmonary disease, unspecified; I73.9 Peripheral vascular disease, unspecified; K21.9 Gastro-esophageal reflux disease without esophagitis; Z99.2 Dependence on renal dialysis; Z89.412 Acquired absence of left great toe; Z87.891 Personal history of nicotine dependence; Z95.1 Presence of aortocoronary bypass graft; Z95.5 Presence of coronary angioplasty implant and graft; Z95.4 Presence of other heart-valve replacement; Y83.2 Surgical operation with anastomosis, bypass or graft as the cause of abnormal reaction of the patient, or of later complication, without mention of misadventure at the time of the procedure ==

== ENCOUNTER → 2022-03-25 | Outpatient (CLI) | payer MEDICARE | END | disposition home or self-care (01) | LOC: WOUNDCARE 01:44 | PROVIDERS: ATTEND Podiatrist Foot & Ankle Surgery | DX: T86.828 Other complications of skin graft (allograft) (autograft) (principal); L97.522 Non-pressure chronic ulcer of other part of left foot with fat layer exposed; L97.514 Non-pressure chronic ulcer of other part of right foot with necrosis of bone; L84 Corns and callosities; M86.671 Other chronic osteomyelitis, right ankle and foot; M24.571 Contracture, right ankle; R60.9 Edema, unspecified; I12.0 Hypertensive chronic kidney disease with stage 5 chronic kidney disease or end stage renal disease; N18.6 End stage renal disease; I87.2 Venous insufficiency (chronic) (peripheral); G60.9 Hereditary and idiopathic neuropathy, unspecified; I25.10 Atherosclerotic heart disease of native coronary artery without angina pectoris; E78.5 Hyperlipidemia, unspecified; G25.81 Restless legs syndrome; J44.9 Chronic obstructive pulmonary disease, unspecified; I73.9 Peripheral vascular disease, unspecified; K21.9 Gastro-esophageal reflux disease without esophagitis; Z99.2 Dependence on renal dialysis; Z87.891 Personal history of nicotine dependence; Z95.4 Presence of other heart-valve replacement; Z95.1 Presence of aortocoronary bypass graft; Z95.5 Presence of coronary angioplasty implant and graft; Z89.412 Acquired absence of left great toe; Y83.2 Surgical operation with anastomosis, bypass or graft as the cause of abnormal reaction of the patient, or of later complication, without mention of misadventure at the time of the procedure ==

== ENCOUNTER → 2022-04-01 | Outpatient (CLI) | payer MEDICARE | END | disposition home or self-care (01) | LOC: WOUNDCARE 00:39 | PROVIDERS: ATTEND Podiatrist Foot & Ankle Surgery | DX: M86.9 Osteomyelitis, unspecified (principal); L97.522 Non-pressure chronic ulcer of other part of left foot with fat layer exposed; L97.512 Non-pressure chronic ulcer of other part of right foot with fat layer exposed; I70.8 Atherosclerosis of other arteries; Z89.422 Acquired absence of other left toe(s); Z89.421 Acquired absence of other right toe(s); Z98.890 Other specified postprocedural states ==